=== PATIENT | female | born 1945 | race Caucasian/White ===

== ENCOUNTER 2017-11-01 06:19 | Emergency (ER) | payer MEDICARE, MEDICAID, SELFPAY ==
[2017-11-01 06:30] VITALS: BP 174/77; PULSE 71; RESP 20; TEMP 36.7; O2SAT 100; BMI 39.0
--- NOTE | 2017-11-01 06:45 | DI.RAD.S_ITS ---
PROCEDURE: XR CHEST 2V INDICATIONS: Recent pneumonia TECHNIQUE: 2 views of the chest were acquired. COMPARISON: [facility], , CHEST 2 VIEW, 09/03/2017, 15:04. FINDINGS: Surgical changes and devices: None. Lungs and pleura: No pleural effusions or pneumothorax. Lungs are clear except for minimal scar or atelectasis at the left base laterally.. Mediastinum: Mediastinal contours are normal. Heart size is normal. Bones and chest wall: No suspicious bony abnormalities. Soft tissues appear unremarkable. IMPRESSION: No acute cardiopulmonary abnormality Dictated by: Fausto Stark M.D. on 11/01/2017 at 8:02 Approved by: Fausto Stark M.D. on 11/01/2017 at 8:03
[2017-11-01 07:13] VITALS: BP 149/87; PULSE 65; RESP 14; O2SAT 96
[2017-11-01 07:21] LABS: Add Manual Diff / Slide Review NO; Eosinophils Percent Auto 3.4 % (2-4); Hematocrit 40.8 % (36-46); Hemoglobin 14.4 g/dL (12.0-16.0); Lymphocytes Percent Auto 23.6 % (25-40); Mean Corpuscular HGB Conc 35.2 % (30-36); Mean Corpuscular Hemoglobin 32.1 PG (26-34); Mean Corpuscular Volume 91.2 fL (80-100); Monocytes Percent Auto 11.1 % (3-14); Neutrophils Absolute Auto 3000 /uL (3000-5900); Neutrophils Percent Auto 60.9 % (50-75); Platelet Count 257 X10^3/uL (150-400); Red Blood Cell Count 4.47 X10^6/uL (4.0-5.2); Red Cell Distribution Width 14.1 % (11.6-14.8); White Blood Cell Count 4.9 X10^3/uL (4.5-11.0)
[2017-11-01 07:35] LABS: BUN Creatinine Ratio 23.3 (6-22); Calcium 9.1 mg/dL (8.4-10.2); Estimated Glomerular Filt Rate > 60.0 mL/min (>60); Glucose 103 mg/dL (80-110); Lactate (Lactic Acid) 0.8 mmol/L (0.7-2.1); Potassium 4.8 mmol/L (3.4-5.1); Sodium 140 mmol/L (137-145)
--- NOTE | 2017-11-01 07:37 | ED_ITS ---
HPI - URI/Sore Throat General Chief Complaint: Upper Respiratory Symptoms Stated Complaint: COUGHING, FEVER RECENT PNEUMONIA Time Seen by Provider: 11/01/17 07:05 Source: patient Mode of arrival: ambulatory Limitations: no limitations History of Present Illness HPI Narrative: 72-year-old female who I evaluated here in the emergency department earlier this month and diagnosed clinically with pneumonia. Was sent home with azithromycin. Patient states she completed this course and felt better. She states that over the past several days the cough and breathing symptoms have returned. No fevers. Does have an albuterol inhaler with an AeroChamber at home. Has had a nebulizer in the past but is not currently use that. Related Data Home Medications Medication Instructions Recorded Confirmed furosemide 40 mg PO QDAY #0 09/15/17 Previous Rx's Medication Instructions Recorded albuterol sulfate [Ventolin HFA] 2 puff INH Q4HP PRN #1 ea 09/03/17 amlodipine [Norvasc] 5 mg PO QDAY #10 tab 09/03/17 gabapentin [Neurontin] 400 mg PO Q8H #21 cap 09/03/17 lamotrigine 150 mg PO TID #21 tab 09/03/17 venlafaxine 150 mg PO BID #14 tab 09/03/17 gabapentin [Neurontin] 400 mg PO Q8H 30 Days #0 cap 09/15/17 lamotrigine 150 mg PO TID 30 Days #0 tab 09/15/17 venlafaxine 300 mg PO QDAY 30 Days #0 tab 09/15/17 albuterol sulfate 1 puff INHALATION Q4-6H PRN #6.7 10/14/17 gram amlodipine 5 mg PO DAILY #30 tab 10/14/17 azithromycin See Label Instructions .ROUTE 10/14/17 .COMPLEX #6 tab gabapentin 400 mg PO TID #90 cap 10/14/17 lamotrigine 150 mg PO TID #90 tab 10/14/17 venlafaxine 150 mg PO DAILY #30 cap 10/14/17 albuterol sulfate 1 puff INHALATION Q4-6H PRN #6.7 11/01/17 gram dexamethasone [Decadron] 4 mg PO DIRECTED #3 tab 11/01/17 venlafaxine 150 mg PO BID #30 cap 11/01/17 Allergies Allergy/AdvReac Type Severity Reaction Status Date / Time Penicillins [PENICILLINS] Allergy Unknown Unverified 09/21/17 13:10 Review of Systems Constitutional Denies chills, Denies fever(s), Denies lethargy and Denies weakness ENT Ears, Nose, Mouth, and Throat: Denies dizziness Cardiovascular Denies chest pain, Denies irregular heart rhythm, Denies lightheadedness, Denies palpitations, Reports dyspnea, Denies dyspnea on exertion and Denies orthopnea Respiratory Reports chest congestion, Reports cough, Denies hemoptysis, Reports dyspnea and Denies dyspnea on exertion Gastrointestinal Gastrointestinal: Denies nausea and Denies vomiting Genitourinary Denies dysuria Musculoskeletal Denies back pain, Denies muscle weakness, Denies numbness and Denies tingling Integumentary/Breasts Denies pruritus, Denies erythema, Denies rash and Denies wounds Neurologic Denies dizziness, Denies numbness, Denies tingling and Denies weakness Endocrine Denies palpitations Hematologic/Lymphatic Denies easy bruising PFSH Social History Smoking Status: Current every day smoker Exam Initial Vital Signs Initial Vital Signs: Vital Signs Temperature 98.1 F 11/01/17 06:30 Pulse Rate 71 11/01/17 06:30 Respiratory Rate 20 11/01/17 06:30 Blood Pressure 174/77 H 11/01/17 06:30 Pulse Oximetry 100 11/01/17 06:30 [facility] Head: normal to inspection, normocephalic and atraumatic Resp Effort & Inspection: normal respiratory effort, able to speak in complete sentences, cough, not labored, no respiratory distress and no stridor Auscultation: no rales, no rhonchi and wheezes Cardio Rate: regular rate Skin General: no rashes or lesions noted, No jaundice and No petechiae Neuro General: alert, awake and oriented x3 Speech: speech normal Extrem General: full ROM, no clubbing, cyanosis or edema, no pedal edema and no calf tenderness Course Orders Ordered: ED Orders 11/01/17 06:45 Chest [XR chest 2V] Stat 11/01/17 07:18 Basic Metabolic Panel Stat Complete Blood Count AUTO DIFF Stat Lactate (Lactic Acid) Stat Procalcitonin Stat Discontinued Medications Albuterol/Ipratropium (Duoneb) 3 ml INH NOW ONE Stop: 11/01/17 07:38 Last Admin: 11/01/17 07:44 Dose: 3 ml Albuterol/Ipratropium (Duoneb) 3 ml INH NOW ONE Stop: 11/01/17 07:38 Last Admin: 11/01/17 07:45 Dose: 3 ml Albuterol/Ipratropium (Duoneb) 3 ml INH NOW ONE Stop: 11/01/17 08:25 Last Admin: 11/01/17 08:38 Dose: 3 ml Dexamethasone (Decadron) 10 mg PO NOW ONE Stop: 11/01/17 08:26 Vital Signs - 8 hr 11/01/17 06:30 11/01/17 07:13 11/01/17 08:39 Temperature 98.1 F Pulse Rate 71 65 Respiratory Rate 20 14 18 Blood Pressure 174/77 H Blood Pressure [Left Arm] 149/87 H Pulse Oximetry 100 96 94 MDM - URI/Sore Throat Lab Data Result diagrams: 11/01/17 07:18 11/01/17 07:18 Lab Results 11/01/17 11/01/17 11/01/17 Range/Units 07:18 07:18 07:18 WBC 4.9 (4.5-11.0) X10^3/uL RBC 4.47 (4.0-5.2) X10^6/uL Hgb 14.4 (12.0-16.0) g/dL Hct 40.8 (36-46) % MCV 91.2 (80-100) fL MCH 32.1 (26-34) PG MCHC 35.2 (30-36) % RDW 14.1 (11.6-14.8) % Plt Count 257 (150-400) X10^3/uL Neut % (Auto) 60.9 (50-75) % Lymph % (Auto) 23.6 L (25-40) % [place] % (Auto) 11.1 (3-14) % Eos % (Auto) 3.4 (2-4) % Baso % (Auto) 1.0 (0-2) % Neut # (Auto) 3000 (9582-1075) /uL Sodium 140 (137-145) mmol/L Potassium 4.8 (3.4-5.1) mmol/L Chloride 103.0 (98-107) mmol/L Carbon Dioxide 27.0 (22-32) mmol/L BUN 14.0 (7-17) mg/dL Creatinine 0.60 (0.52-1.04) mg/dL Estimated GFR > 60.0 (>60) mL/min BUN/Creatinine Ratio 23.3 H (6-22) Glucose 103 (80-110) mg/dL Lactate (0.7-2.1) mmol/L Calcium 9.1 (8.4-10.2) mg/dL Procalcitonin < 0.05 (<0.5) ng/mL 11/01/17 Range/Units 07:18 WBC (4.5-11.0) X10^3/uL RBC (4.0-5.2) X10^6/uL Hgb (12.0-16.0) g/dL Hct (36-46) % MCV (80-100) fL MCH (26-34) PG MCHC (30-36) % RDW (11.6-14.8) % Plt Count (150-400) X10^3/uL Neut % (Auto) (50-75) % Lymph % (Auto) (25-40) % [place] % (Auto) (3-14) % Eos % (Auto) (2-4) % Baso % (Auto) (0-2) % Neut # (Auto) (3455-7777) /uL Sodium (137-145) mmol/L Potassium (3.4-5.1) mmol/L Chloride (98-107) mmol/L Carbon Dioxide (22-32) mmol/L BUN (7-17) mg/dL Creatinine (0.52-1.04) mg/dL Estimated GFR (>60) mL/min BUN/Creatinine Ratio (6-22) Glucose (80-110) mg/dL Lactate 0.8 (0.7-2.1) mmol/L Calcium (8.4-10.2) mg/dL Procalcitonin (<0.5) ng/mL Imaging Data Chest x-ray: Radiologist's impression: ROCEDURE: XR CHEST 2V INDICATIONS: Recent pneumonia TECHNIQUE: 2 views of the chest were acquired. COMPARISON: [facility], , CHEST 2 VIEW, 09/03/2017, 15:04. FINDINGS: Surgical changes and devices: None. Lungs and pleura: No pleural effusions or pneumothorax. Lungs are clear except for minimal scar or atelectasis at the left base laterally.. Mediastinum: Mediastinal contours are normal. Heart size is normal. Bones and chest wall: No suspicious bony abnormalities. Soft tissues appear unremarkable. IMPRESSION: No acute cardiopulmonary abnormality Dictated by: Fausto Stark M.D. on 11/01/2017 at 8:02 MDM Narrative Medical decision making narrative: Patient received 3 DuoNeb here in the emergency department with an improvement of the wheezing bilaterally. Did not resolve the symptoms however. Patient did state that she feels much better. Chest x-ray shows no signs of infection. I have low suspicion for an infectious process the cause of her symptoms in feel that is more likely a reactive issue. She does have a history of asthma but no diagnosis COPD history. She does smoke ?a few cigarettes ?a day. She states that she is using her albuterol inhaler with an AeroChamber several times a day. She was given steroids here in the emergency department. Will send home with another prescription for Decadron to taken 36 hr. Will refill her albuterol inhaler. She does have a follow-up appointment with her primary doctor at the beginning of next month. She was instructed on how to do peak flows at home and was informed that she should be recording these peak flows that she could take them to her primary doctor to discuss being on a daily inhaled corticosteroid. She was given return precautions. Is not hypoxic. Was not in respiratory distress. Does not need an acute admission to the hospital currently in my opinion. She expressed understanding and agreement with plan Discharge Plan Departure Patient Disposition: Home, Self-Care Clinical Impression: Exacerbation of reactive airway disease Instructions: Cigarette Addiction (Alternative Therapy), How to Quit Smoking, Reactive Airway Disease-Adult Activity Restrictions/Additional Instructions: Take all the medications likely discussed. Would recommend that you take your albuterol inhaler with the AeroChamber every 4 hr for the next 24 hr while you are awake. After that you can do it as needed. Take the steroids tomorrow late afternoon likely discussed. Do your peak flows at home like you were instructed by respiratory therapy and record these numbers. Take them with you to your primary care doctor's office. Keep your appointment with your primary doctor early next week. Return to the emergency department for any new or worsening symptoms Prescriptions: New venlafaxine 150 mg capsule,extended release 24hr 150 mg PO BID Qty: 30 RF: 0 dexamethasone [Decadron] 4 mg tablet 4 mg PO DIRECTED Qty: 3 RF: 0 albuterol sulfate 90 mcg/actuation HFA aerosol inhaler 1 puff INHALATION Q4-6H PRN (Reason: shortness of breath or wheezing) Qty: 6.7 RF: 0 No Action lamotrigine 150 MG tablet 150 mg PO TID Qty: 21 RF: 0 gabapentin [Neurontin] 400 MG capsule 400 mg PO Q8H Qty: 21 RF: 0 amlodipine [Norvasc] 5 MG tablet 5 mg PO QDAY Qty: 10 RF: 0 albuterol sulfate [Ventolin HFA] 90 MCG/PUFF HFA aerosol inhaler 2 puff INH Q4HP PRNQty: 1 RF: 0 venlafaxine 150 MG tablet extended release 24hr 150 mg PO BID Qty: 14 RF: 0 furosemide 40 MG tablet 40 mg PO QDAY Qty: 0 RF: 0 lamotrigine 150 MG tablet 150 mg PO TID 30 Days Qty: 0 RF: 0 gabapentin [Neurontin] 400 MG capsule 400 mg PO Q8H 30 Days Qty: 0 RF: 0 venlafaxine 150 MG tablet extended release 24hr 300 mg PO QDAY 30 Days Qty: 0 RF: 0 lamotrigine 150 mg tablet 150 mg PO TID Qty: 90 RF: 0 azithromycin 250 mg tablet See Label Instructions .ROUTE .COMPLEX Qty: 6 RF: 0 gabapentin 400 mg capsule 400 mg PO TID Qty: 90 RF: 0 venlafaxine 150 mg capsule,extended release 24hr 150 mg PO DAILY Qty: 30 RF: 0 amlodipine 5 mg tablet 5 mg PO DAILY Qty: 30 RF: 0 albuterol sulfate 90 mcg/actuation HFA aerosol inhaler 1 puff INHALATION Q4-6H PRN (Reason: shortness of breath) Qty: 6.7 RF: 0
[2017-11-01 07:39] LABS: HEMOLYSIS 235 (0-50)
[2017-11-01] MEDS: ALBUTEROL/IPRATROPIUM 3 ML AMPUL INH ×3 (07:44→08:38)
[2017-11-01 08:39] VITALS: RESP 18; O2SAT 94
[2017-11-01 08:45] LABS: Procalcitonin < 0.05 ng/mL (<0.5)
[2017-11-01 09:35] VITALS: BP 138/54; PULSE 74; RESP 20; O2SAT 97
[2017-11-01] MEDS: DEXAMETHASONE 10 MG/ML VIAL PO (09:37)
[2017-11-01 09:46] VITALS: BP 138/54; PULSE 88; RESP 20; O2SAT 95
[2017-11-01 09:50] VITALS: BP 142/82; PULSE 64; O2SAT 95
== END 2017-11-01 09:53 | disposition home or self-care (01) ==
PROVIDERS: Emergency Medicine; Emergency Provider Emergency Medicine
DX: J45.901 Unspecified asthma with (acute) exacerbation (principal)
CPT/HCPCS: 36591; 71046; 80048; 83605; 84145; 85025; 94150; 94640; 99283; 99284; J1100

== ENCOUNTER 2017-11-21 22:53 | Emergency (ER) | payer MEDICARE, MEDICAID, SELFPAY ==
[2017-11-21 23:05] VITALS: BP 176/80; PULSE 78; RESP 18; TEMP 36.4; O2SAT 97; BMI 35.2
--- NOTE | 2017-11-22 00:22 | ED_ITS ---
HPI - Psych General Chief Complaint: Psychiatric Symptoms Stated Complaint: OUT OF MENTAL HEALTH MEDICATIONS CONCERN Time Seen by Provider: 11/21/17 23:18 Source: patient Mode of arrival: ambulatory Limitations: no limitations History of Present Illness HPI Narrative: Patient is a 72-year-old female who I have seen in this emergency department several times in the past for both medication refills of her psychiatric medicines and also for COPD exacerbations. I evaluated the patient here in the emergency department on November 01. At that point she stated that she had a follow up with her primary doctor on November 14 to have her regular evaluation and have her psychiatric medicines refilled. Patient states that she was unable to make this appointment. She states that it was an issue with transportation seeing as how she lives in [place] at her primary doctor is in [place]. She states that because she missed this appointment she was not able to get a refill of her medications. She states that she is felt very anxious since then. States she has felt depressed since then. She has not had her psychiatric medicines in several days now. She states that because of this she is feeling thoughts of suicide. She states that she always has thoughts of suicide. She states that these get worse when she is off of her medicines and when she is feeling anxious. 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 Patient has not contacted her primary doctor since her missed appointment approximately 1 week ago Related Data Home Medications Medication Instructions Recorded Confirmed furosemide 40 mg PO QDAY #0 09/15/17 Previous Rx's Medication Instructions Recorded albuterol sulfate [Ventolin HFA] 2 puff INH Q4HP PRN #1 ea 09/03/17 amlodipine [Norvasc] 5 mg PO QDAY #10 tab 09/03/17 gabapentin [Neurontin] 400 mg PO Q8H #21 cap 09/03/17 lamotrigine 150 mg PO TID #21 tab 09/03/17 venlafaxine 150 mg PO BID #14 tab 09/03/17 gabapentin [Neurontin] 400 mg PO Q8H 30 Days #0 cap 09/15/17 lamotrigine 150 mg PO TID 30 Days #0 tab 09/15/17 venlafaxine 300 mg PO QDAY 30 Days #0 tab 09/15/17 albuterol sulfate 1 puff INHALATION Q4-6H PRN #6.7 05/04/18 gram amlodipine 5 mg PO DAILY #30 tab 10/14/17 azithromycin See Label Instructions .ROUTE 10/14/17 .COMPLEX #6 tab gabapentin 400 mg PO TID #90 cap 10/14/17 lamotrigine 150 mg PO TID #90 tab 10/14/17 venlafaxine 150 mg PO DAILY #30 cap 10/14/17 albuterol sulfate 1 puff INHALATION Q4-6H PRN #6.7 11/01/17 gram dexamethasone [Decadron] 4 mg PO DIRECTED #3 tab 11/01/17 venlafaxine 150 mg PO BID #30 cap 11/01/17 amlodipine 5 mg PO DAILY #30 tab 11/22/17 gabapentin 400 mg PO TID #90 cap 11/22/17 lamotrigine 150 mg PO TID #90 tab 11/22/17 venlafaxine 300 mg PO DAILY #60 cap 11/22/17 Allergies Allergy/AdvReac Type Severity Reaction Status Date / Time Penicillins [PENICILLINS] Allergy Unknown Verified 11/21/17 23:08 Review of Systems Constitutional Denies chills, Denies fever(s), Denies lethargy and Denies weakness Cardiovascular Denies chest pain, Denies irregular heart rhythm, Denies lightheadedness, Denies palpitations and Denies orthopnea Respiratory Comments: States that she has at her baseline with regard to her shortness of breath Gastrointestinal Gastrointestinal: Denies constipation, Denies diarrhea, Denies nausea and Denies vomiting Musculoskeletal Denies back pain, Denies muscle weakness, Denies numbness and Denies tingling Neurologic Denies numbness, Denies tingling and Denies weakness Psychiatric Reports anxiety, Reports depression, Denies homicidal ideation and Reports suicidal ideation Endocrine Denies palpitations Hematologic/Lymphatic Denies easy bruising [facility] Social History Smoking Status: Current every day smoker Exam Initial Vital Signs Initial Vital Signs: Vital Signs Temperature 97.5 F L 11/21/17 23:05 Pulse Rate 78 11/21/17 23:05 Respiratory Rate 18 11/21/17 23:05 Blood Pressure 176/80 H 11/21/17 23:05 Pulse Oximetry 97 11/21/17 23:05 Const General: cooperative and well developed Nutritional Appearance: well nourished Orientation: alert, awake, oriented x3 and not confused Resp Effort & Inspection: normal respiratory effort and able to speak in complete sentences Cardio Rate: regular rate Rhythm: regular rhythm Heart Sounds: no click, no gallops, no murmurs and no rubs Pulses: normal peripheral pulses Skin General: no rashes or lesions noted, No jaundice and No petechiae Psych Appearance: grossly normal and well kempt Mental Status: mental status grossly normal and other (Depressed) Speech and Movement: speech and movement normal Mood: other (Depressed) Affect: other (Depressed) Attitude: cooperative Course Vital Signs - 8 hr 11/21/17 23:05 11/22/17 00:38 Temperature 97.5 F L 98.7 F Pulse Rate 78 66 Respiratory Rate 18 16 Blood Pressure 176/80 H 154/83 H Pulse Oximetry 97 98 MDM - Psych MDM Narrative Medical decision making narrative: I have evaluated this patient in the past on several occasions and have refilled her psychiatric medicine on several occasions. Prior to this appointment I have informed her many times that these medicines need to be prescribed by her primary doctor and they are chronic medicines that she does need to see a primary doctor on a regular basis to manage her chronic depression. At the time she expressed understanding. She did miss her appointment that she had on the 4th of this month. She states that since then she has had these suicidal thoughts and also the depression. She states that she felt safe at home. She states that she feels like if she was back on her medicines that these thoughts would go away. She states that she would never act on these thoughts. She states she constantly has thoughts like this. She is at baseline with regard to her respiratory status. Patient is having a hard time with making appointments with her primary doctor. She states that this is because she has a sick child. She is living in a hotel here in [facility] and has a difficult time making it to her primary doctor down in [place]. I will refill her medicines again this evening. She was given a 30 day supply this medicine. Informed her that she needed to contact her primary doctor and explained the situation to work something out about how to get down to see them. She stated that she felt like she did not need admitted to the hospital or talked anyone with regard to her depression. She was informed that she could return the emergency department at any point for worsening thoughts. She expressed understanding and agreement with plan Discharge Plan Departure Patient Disposition: Home, Self-Care Clinical Impression: Depression, Medication refill Discharge Date/Time: 11/22/17 00:40 Interventions: ED Discharge Assessment Last Done: 11/22/17 00:38 Instructions: Depression (Mild to Moderate) (Alternative Therapy), Depression Activity Restrictions/Additional Instructions: I recommend that you contact your primary doctor again down in [place] to discuss follow-up in to explain your situation. You do need to follow up with her primary doctor because the emergency department is not appropriate to obtain long-term medication refills. You may return to the emergency department at any point for new or worsening symptoms Prescriptions: New lamotrigine 150 mg tablet 150 mg PO TID Qty: 90 RF: 0 gabapentin 400 mg capsule 400 mg PO TID Qty: 90 RF: 0 venlafaxine 150 mg capsule,extended release 24hr 300 mg PO DAILY Qty: 60 RF: 0 amlodipine 5 mg tablet 5 mg PO DAILY Qty: 30 RF: 0 No Action lamotrigine 150 MG tablet 150 mg PO TID Qty: 21 RF: 0 gabapentin [Neurontin] 400 MG capsule 400 mg PO Q8H Qty: 21 RF: 0 amlodipine [Norvasc] 5 MG tablet 5 mg PO QDAY Qty: 10 RF: 0 albuterol sulfate [Ventolin HFA] 90 MCG/PUFF HFA aerosol inhaler 2 puff INH Q4HP PRNQty: 1 RF: 0 venlafaxine 150 MG tablet extended release 24hr 150 mg PO BID Qty: 14 RF: 0 furosemide 40 MG tablet 40 mg PO QDAY Qty: 0 RF: 0 lamotrigine 150 MG tablet 150 mg PO TID 30 Days Qty: 0 RF: 0 gabapentin [Neurontin] 400 MG capsule 400 mg PO Q8H 30 Days Qty: 0 RF: 0 venlafaxine 150 MG tablet extended release 24hr 300 mg PO QDAY 30 Days Qty: 0 RF: 0 venlafaxine 150 mg capsule,extended release 24hr 150 mg PO BID Qty: 30 RF: 0 dexamethasone [Decadron] 4 mg tablet 4 mg PO DIRECTED Qty: 3 RF: 0 albuterol sulfate 90 mcg/actuation HFA aerosol inhaler 1 puff INHALATION Q4-6H PRN (Reason: shortness of breath or wheezing) Qty: 6.7 RF: 0 lamotrigine 150 mg tablet 150 mg PO TID Qty: 90 RF: 0 azithromycin 250 mg tablet See Label Instructions .ROUTE .COMPLEX Qty: 6 RF: 0 gabapentin 400 mg capsule 400 mg PO TID Qty: 90 RF: 0 venlafaxine 150 mg capsule,extended release 24hr 150 mg PO DAILY Qty: 30 RF: 0 amlodipine 5 mg tablet 5 mg PO DAILY Qty: 30 RF: 0 albuterol sulfate 90 mcg/actuation HFA aerosol inhaler 1 puff INHALATION Q4-6H PRN (Reason: shortness of breath) Qty: 6.7 RF: 0
[2017-11-22 00:38] VITALS: BP 154/83; PULSE 66; RESP 16; TEMP 37.1; O2SAT 98
== END 2017-11-22 00:40 | disposition home or self-care (01) ==
PROVIDERS: Emergency Provider Emergency Medicine
DX: F32.9 Major depressive disorder, single episode, unspecified (principal)
CPT/HCPCS: 99282

== ENCOUNTER 2017-12-27 23:07 | Emergency (ER) | payer MEDICARE, MEDICAID, SELFPAY ==
[2017-12-27 23:29] VITALS: BP 159/87; PULSE 78; RESP 15; TEMP 36.6
[2017-12-28 02:25] LABS: Appearance Urine UA CLEAR; Bilirubin Urine UA NEGATIVE (NEGATIVE); Color Urine UA YELLOW; Glucose Urine UA NEGATIVE (Normal); Ketones Urine UA NEGATIVE (NEGATIVE); Leukocyte Esterase Urine UA 2+ (NEGATIVE); Nitrite Urine UA Negative (Negative); Occult Blood Urine UA TRACE-INTACT (Negative); Protein Urine UA NEGATIVE (Negative); Urobilinogen Urine UA 0.2 E.U./dL (0.2)
[2017-12-28 02:31] LABS: Bacteria Urine Few (2-10); Culture Indicated Urine Specimen Cultured; RBC Urine 0-1/HPF (0-5/HPF); Squamous Epithelial Cell Urine 0-1 /HPF; WBC Urine 1-5/HPF (0-5/HPF)
--- NOTE | 2017-12-28 02:32 | ED_ITS ---
HPI - Female Genitourinary General Chief complaint: Urogenital-Female Stated complaint: feels confused, cough Time Seen by Provider: 12/28/17 00:00 Source: patient Mode of arrival: ambulatory History of Present Illness HPI Narrative: Pleasant 72-year-old female presents with a chief complaint of urinary frequency and urgency as well as some nausea and right low back pain. She states she feels like she has in the past when she has had a urinary tract infection. She denies chest pain or shortness of breath. She denies any abdominal pain. MD Complaint: dysuria and UTI Onset (ago): day(s) Severity: moderate Quality: Aching and Burning Duration: constant Relieving factors: none Exacerbating factors: none Urinary symptoms: Difficulty Urinating, Dysuria and Urgency Related Data Home Medications Medication Instructions Recorded Confirmed furosemide 40 mg PO QDAY #0 09/15/17 Previous Rx's Medication Instructions Recorded albuterol sulfate [Ventolin HFA] 2 puff INH Q4HP PRN #1 ea 09/03/17 amlodipine [Norvasc] 5 mg PO QDAY #10 tab 09/03/17 gabapentin [Neurontin] 400 mg PO Q8H #21 cap 09/03/17 lamotrigine 150 mg PO TID #21 tab 09/03/17 venlafaxine 150 mg PO BID #14 tab 09/03/17 gabapentin [Neurontin] 400 mg PO Q8H 30 Days #0 cap 09/15/17 lamotrigine 150 mg PO TID 30 Days #0 tab 09/15/17 venlafaxine 300 mg PO QDAY 30 Days #0 tab 09/15/17 albuterol sulfate 1 puff INHALATION Q4-6H PRN #6.7 10/14/17 gram amlodipine 5 mg PO DAILY #30 tab 10/14/17 azithromycin See Label Instructions .ROUTE 10/14/17 .COMPLEX #6 tab gabapentin 400 mg PO TID #90 cap 10/14/17 lamotrigine 150 mg PO TID #90 tab 10/14/17 venlafaxine 150 mg PO DAILY #30 cap 10/14/17 albuterol sulfate 1 puff INHALATION Q4-6H PRN #6.7 11/01/17 gram dexamethasone [Decadron] 4 mg PO DIRECTED #3 tab 11/01/17 venlafaxine 150 mg PO BID #30 cap 11/01/17 amlodipine 5 mg PO DAILY #30 tab 11/22/17 gabapentin 400 mg PO TID #90 cap 11/22/17 lamotrigine 150 mg PO TID #90 tab 11/22/17 venlafaxine 300 mg PO DAILY #60 cap 11/22/17 gabapentin [Neurontin] 400 mg PO TID 5 Days #15 cap 12/28/17 lamotrigine [Lamictal] 150 mg PO TID 5 Days #15 tab 12/28/17 sulfamethoxazole-trimethoprim 1 tab PO BID 10 Days #20 tab 12/28/17 [Bactrim DS] venlafaxine [Effexor XR] 150 mg PO DAILY 5 Days cap 12/28/17 Allergies Allergy/AdvReac Type Severity Reaction Status Date / Time Penicillins [PENICILLINS] Allergy Unknown Verified 11/21/17 23:08 Review of Systems Review of Systems All systems reviewed & are unremarkable except as noted in HPI and below Constitutional Denies chills, Denies fever(s), Denies lethargy and Denies weakness Eyes Denies change in vision, Denies eye discharge, Denies irritation and Denies loss of vision ENT Ears, Nose, Mouth, and Throat: Denies change in voice, Denies neck pain and Denies sore throat Cardiovascular Denies chest pain, Denies irregular heart rhythm, Denies lightheadedness, Denies palpitations, Denies dyspnea, Denies dyspnea on exertion and Denies orthopnea Respiratory Denies cough, Denies dyspnea, Denies dyspnea on exertion and Denies wheezing Gastrointestinal Gastrointestinal: Denies abdominal pain, Denies change in bowel habits, Denies diarrhea, Denies nausea and Denies vomiting Genitourinary Denies hematuria, Denies flank pain, Denies urinary incontinence and Denies urinary urgency Musculoskeletal Denies neck pain Integumentary/Breasts Denies pruritus, Denies erythema, Denies rash and Denies wounds Neurologic Denies confusion, Denies loss of vision and Denies weakness Psychiatric Denies anxiety, Denies confusion, Denies depression, Denies homicidal ideation and Denies suicidal ideation Endocrine Denies palpitations Hematologic/Lymphatic Denies easy bruising Allergic/Immunologic Denies wheezing [facility] Social History Smoking Status: Current some day smoker Exam Initial Vital Signs Initial Vital Signs: Vital Signs Temperature 97.9 F 12/27/17 23:29 Pulse Rate 78 12/27/17 23:29 Respiratory Rate 15 12/27/17 23:29 Blood Pressure 159/87 H 12/27/17 23:29 Const General: cooperative and well developed Nutritional Appearance: well nourished Orientation: alert, awake, oriented x3 and not confused [facility] Head: normocephalic and atraumatic Ears: external ears normal and TM's normal bilaterally Nose: external nose normal and No nasal discharge Face and sinus: sinuses nontender, face symmetric, no sinus tenderness and No dry mucous membranes Mouth: oral mucosae normal and moist mucous membranes Teeth and gingiva: dentition normal Throat: tonsils normal and uvula midline Eyes General: appearance normal, both eyes and all related structures Eyelids: eyelids normal Conjunctivae: conjunctivae normal Sclera: sclerae normal Pupils: PERRL EOM: EOM intact bilaterally Neck Neck: normal visual inspection, trachea midline, No lymphadenopathy, No midline deformity and No JVD Lymphatic: No lymphedema Chest Chest: normal inspection of the chest Resp Effort & Inspection: normal respiratory effort, able to speak in complete sentences, no respiratory distress and no use of accessory muscles Auscultation: clear to auscultation bilaterally, no rales, no rhonchi and no wheezes Cardio Rate: regular rate Rhythm: regular rhythm Heart Sounds: no click, no gallops, no murmurs and no rubs Pulses: normal peripheral pulses GI Inspection: non-distended Palpation: soft, no hepatosplenomegaly, No guarding, No pulsatile mass and No tender Auscultation: normal bowel sounds Back/Spine/Pelvis Back: CVA tenderness right Cervical Spine: cervical ROM normal and No pain with cervical ROM Thoracic/Lumbar Spine: thoracic and lumbar spine normal to inspection Skin General: no rashes or lesions noted, No jaundice and No petechiae Neuro General: alert, oriented x3, gait normal and no focal motor deficits Speech: speech normal Extrem General: full ROM, no clubbing, cyanosis or edema, no pedal edema and no calf tenderness Psych Appearance: well kempt Mental Status: mental status grossly normal Attitude: cooperative Thought Content: normal and suicidality Judgment: judgment good Course Orders Ordered: ED Orders 12/28/17 00:00 Urinalysis and Microscopic Stat Urine Culture Stat Discontinued Medications Trimethoprim/Sulfamethoxazole (Bactrim Ds) 1 tab PO NOW ONE Stop: 12/28/17 02:33 Last Admin: 12/28/17 02:44 Dose: 1 tab Vital Signs - 8 hr 12/27/17 23:29 12/28/17 02:50 Temperature 97.9 F 97.8 F Pulse Rate 78 74 Respiratory Rate 15 16 Blood Pressure 159/87 H 150/80 H Pulse Oximetry 98 MDM - Female Genitourinary Lab Data Lab Results 12/28/17 Range/Units 00:00 Urine Color Yellow Urine Appearance Clear Urine pH 5.0 (4.5-8.0) Ur Specific [place] 1.010 (1.000-1.035) Urine Protein Negative (Negative) Urine Glucose (UA) Negative (Normal) g/dL Urine Ketones Negative (NEGATIVE) Urine Occult Blood Trace-intact (Negative) Urine Nitrate Negative (Negative) Urine Bilirubin Negative (NEGATIVE) Urine Urobilinogen 0.2 (0.2) E.U./dL Ur Leukocyte Esterase 2+ H (NEGATIVE) Urine RBC 0-1/hpf (0-5/HPF) Urine WBC 1-5/hpf (0-5/HPF) Ur Squamous Epith Cells 0-1 /hpf Urine Bacteria Few (2-10) H (None) Ur Culture Indicated? Specimen cultured Micro UA Comment Not Reportable Discharge Plan Departure Patient Disposition: Home, Self-Care Clinical Impression: UTI (urinary tract infection), Medication refill Discharge Date/Time: 12/28/17 02:50 Interventions: ED Discharge Assessment Last Done: 12/28/17 02:50 Instructions: DI for Urinary Tract Infection (UTI) Activity Restrictions/Additional Instructions: *You have been diagnosed with pyelonephritis, medication refill *What to do: *Take medications as directed *Follow up with your primary care provider in 2-3 days, call for an appointment. Let them know you were seen in the Emergency Department and that we ask that you be seen in follow up *Return to ER if you should have any new, worsening or concerning symptoms , such as [fever, chills, nausea, vomiting or other ] Prescriptions: New lamotrigine [Lamictal] 150 mg tablet 150 mg PO TID 5 Days Qty: 15 RF: 0 gabapentin [Neurontin] 400 mg capsule 400 mg PO TID 5 Days Qty: 15 RF: 0 venlafaxine [Effexor XR] 150 mg capsule,extended release 24hr 150 mg PO DAILY 5 Days RF: 0 sulfamethoxazole-trimethoprim [Bactrim DS] 800-160 mg tablet 1 tab PO BID 10 Days Qty: 20 RF: 0 No Action lamotrigine 150 MG tablet 150 mg PO TID Qty: 21 RF: 0 gabapentin [Neurontin] 400 MG capsule 400 mg PO Q8H Qty: 21 RF: 0 amlodipine [Norvasc] 5 MG tablet 5 mg PO QDAY Qty: 10 RF: 0 albuterol sulfate [Ventolin HFA] 90 MCG/PUFF HFA aerosol inhaler 2 puff INH Q4HP PRNQty: 1 RF: 0 venlafaxine 150 MG tablet extended release 24hr 150 mg PO BID Qty: 14 RF: 0 furosemide 40 MG tablet 40 mg PO QDAY Qty: 0 RF: 0 lamotrigine 150 MG tablet 150 mg PO TID 30 Days Qty: 0 RF: 0 gabapentin [Neurontin] 400 MG capsule 400 mg PO Q8H 30 Days Qty: 0 RF: 0 venlafaxine 150 MG tablet extended release 24hr 300 mg PO QDAY 30 Days Qty: 0 RF: 0 venlafaxine 150 mg capsule,extended release 24hr 150 mg PO BID Qty: 30 RF: 0 dexamethasone [Decadron] 4 mg tablet 4 mg PO DIRECTED Qty: 3 RF: 0 albuterol sulfate 90 mcg/actuation HFA aerosol inhaler 1 puff INHALATION Q4-6H PRN (Reason: shortness of breath or wheezing) Qty: 6.7 RF: 0 lamotrigine 150 mg tablet 150 mg PO TID Qty: 90 RF: 0 azithromycin 250 mg tablet See Label Instructions .ROUTE .COMPLEX Qty: 6 RF: 0 gabapentin 400 mg capsule 400 mg PO TID Qty: 90 RF: 0 venlafaxine 150 mg capsule,extended release 24hr 150 mg PO DAILY Qty: 30 RF: 0 amlodipine 5 mg tablet 5 mg PO DAILY Qty: 30 RF: 0 albuterol sulfate 90 mcg/actuation HFA aerosol inhaler 1 puff INHALATION Q4-6H PRN (Reason: shortness of breath) Qty: 6.7 RF: 0 lamotrigine 150 mg tablet 150 mg PO TID Qty: 90 RF: 0 gabapentin 400 mg capsule 400 mg PO TID Qty: 90 RF: 0 venlafaxine 150 mg capsule,extended release 24hr 300 mg PO DAILY Qty: 60 RF: 0 amlodipine 5 mg tablet 5 mg PO DAILY Qty: 30 RF: 0
[2017-12-28] MEDS: SULFA/TRIMETH 800/160 (DS) TABLET 1 TAB PO (02:44)
[2017-12-28 02:50] VITALS: BP 150/80; PULSE 74; RESP 16; TEMP 36.6; O2SAT 98
--- NOTE | 2017-12-28 02:51 | PC.NURSE ---
Pt gave alternate phone number for if urine culture needs further follow-up. Phone number is [phone].
== END 2017-12-28 02:50 | disposition home or self-care (01) ==
PROVIDERS: Emergency Provider Emergency Medicine; PCP Family Medicine
DX: N39.0 Urinary tract infection, site not specified (principal)
CPT/HCPCS: 81001; 87086; 99282; 99283

== ENCOUNTER 2018-01-11 03:24 | Emergency (ER) | payer MEDICARE, MEDICAID, SELFPAY ==
[2018-01-11 03:34] VITALS: BP 154/84; PULSE 84; RESP 18; TEMP 36.4; O2SAT 96; BMI 35.2
--- NOTE | 2018-01-11 03:54 | ED.FEMALEGU ---
HPI - Female Genitourinary General Chief complaint: Urogenital-Female Stated complaint: UTI Time Seen by Provider: 01/11/18 03:48 Source: patient Mode of arrival: ambulatory Limitations: no limitations History of Present Illness HPI Narrative: The patient complains of right flank and lower abdominal discomfort. She has urinary urgency and he dysuria. She has prior visits here in the last month, the most recent urine culture Appears to have been contaminated with multiple organisms. she has subjective fever and chills, none now. She denies nausea or vomiting. Symptoms are recently worse. Additionally she has a history of chronic sinusitis, she complains of ongoing sinus discomfort. She has no associated ear pressure or sore throat. She describes a nonproductive cough. Related Data Home Medications Medication Instructions Recorded Confirmed furosemide 40 mg PO QDAY #0 09/15/17 Previous Rx's Medication Instructions Recorded albuterol sulfate [Ventolin HFA] 2 puff INH Q4HP PRN #1 ea 09/03/17 amlodipine [Norvasc] 5 mg PO QDAY #10 tab 09/03/17 gabapentin [Neurontin] 400 mg PO Q8H #21 cap 09/03/17 lamotrigine 150 mg PO TID #21 tab 09/03/17 venlafaxine 150 mg PO BID #14 tab 09/03/17 gabapentin [Neurontin] 400 mg PO Q8H 30 Days #0 cap 09/15/17 lamotrigine 150 mg PO TID 30 Days #0 tab 09/15/17 venlafaxine 300 mg PO QDAY 30 Days #0 tab 09/15/17 albuterol sulfate 1 puff INHALATION Q4-6H PRN #6.7 10/14/17 gram amlodipine 5 mg PO DAILY #30 tab 10/14/17 azithromycin See Label Instructions .ROUTE 10/14/17 .COMPLEX #6 tab gabapentin 400 mg PO TID #90 cap 10/14/17 lamotrigine 150 mg PO TID #90 tab 10/14/17 venlafaxine 150 mg PO DAILY #30 cap 10/14/17 albuterol sulfate 1 puff INHALATION Q4-6H PRN #6.7 11/01/17 gram dexamethasone [Decadron] 4 mg PO DIRECTED #3 tab 11/01/17 venlafaxine 150 mg PO BID #30 cap 11/01/17 amlodipine 5 mg PO DAILY #30 tab 11/22/17 gabapentin 400 mg PO TID #90 cap 11/22/17 lamotrigine 150 mg PO TID #90 tab 11/22/17 venlafaxine 300 mg PO DAILY #60 cap 11/22/17 cefuroxime axetil 500 mg PO BID 10 Days #20 tab 01/11/18 gabapentin 400 mg PO TID #90 cap 01/11/18 lamotrigine [Lamictal] 150 mg PO TID #90 tab 01/11/18 venlafaxine 150 mg PO BEDTIME #30 cap 01/11/18 Allergies Allergy/AdvReac Type Severity Reaction Status Date / Time Penicillins [PENICILLINS] Allergy Unknown Verified 11/21/17 23:08 sulfamethoxazole AdvReac Rash Verified 01/11/18 03:37 [From Bactrim] trimethoprim [From Bactrim] AdvReac Rash Verified 01/11/18 03:37 Review of Systems Review of Systems All systems reviewed & are unremarkable except as noted in HPI and below Constitutional Denies chills, Reports fever(s), Denies lethargy and Denies weakness ENT Ears, Nose, Mouth, and Throat: Denies change in voice, Denies dizziness, Reports facial pain, Denies neck pain and Denies sore throat Cardiovascular Denies chest pain, Denies irregular heart rhythm, Denies lightheadedness, Denies palpitations and Denies dyspnea Respiratory Reports cough, Denies dyspnea and Denies wheezing Gastrointestinal Gastrointestinal: Reports as per HPI, Reports abdominal pain, Denies change in bowel habits, Denies change in stool character, Denies constipation and Denies vomiting Genitourinary Denies hematuria, Reports dysuria, Reports flank pain and Reports urinary urgency Musculoskeletal Denies back pain and Denies neck pain Integumentary/Breasts Denies erythema, Denies rash and Denies wounds Neurologic Denies confusion, Denies dizziness and Denies weakness Psychiatric Denies confusion Endocrine Denies palpitations Allergic/Immunologic Denies wheezing [facility] Social History Smoking Status: Current some day smoker Exam Initial Vital Signs Initial Vital Signs: Vital Signs Temperature 97.6 F 01/11/18 03:34 Pulse Rate 84 01/11/18 03:34 Respiratory Rate 18 01/11/18 03:34 Blood Pressure 154/84 H 01/11/18 03:34 Pulse Oximetry 96 01/11/18 03:34 Const General: cooperative and well developed Nutritional Appearance: well nourished Orientation: alert, awake, oriented x3 and not confused [facility] Head: normocephalic and atraumatic Ears: external ears normal and TM's normal bilaterally Nose: No nasal discharge Face and sinus: face symmetric and sinus tenderness maxillary Mouth: oral mucosae normal and moist mucous membranes Teeth and gingiva: dentition normal Throat: tonsils normal and uvula midline Eyes Conjunctivae: conjunctivae normal Neck Lymphatic: No lymphadenopathy Chest Chest: normal inspection of the chest Resp Effort & Inspection: normal respiratory effort and able to speak in complete sentences Auscultation: clear to auscultation bilaterally, no rales, no rhonchi and no wheezes Cardio Rate: regular rate Rhythm: regular rhythm Heart Sounds: S1 normal, S2 normal, no click, no gallops, no murmurs and no rubs Pulses: normal peripheral pulses GI Inspection: non-distended Palpation: soft, no hepatosplenomegaly, No guarding and tender (right flank) Auscultation: normal bowel sounds Back/Spine/Pelvis Back: No CVA tenderness Skin General: no rashes or lesions noted, No jaundice and No petechiae Neuro General: alert, oriented x3, gait normal and no focal motor deficits Speech: speech normal Extrem General: full ROM, no clubbing, cyanosis or edema, no pedal edema and no calf tenderness Course Additional Information: I am treating the patient for UTI and possibly sinus infection. She requested refills for her mental health drugs, her doctor is in [place], [place]. She does not currently have an adequate means to be transported to his office, she is trying to work that out with local bus services. Orders Ordered: ED Orders 01/11/18 03:50 Urinalysis and Microscopic Stat Urine Culture Stat Discontinued Medications Cefuroxime Axetil (Ceftin) 500 mg PO NOW ONE Stop: 01/11/18 04:28 Phenazopyridine HCl (Pyridium 100mg Prepack) 1 bottle MISC SEEINSTR ONE Stop: 01/11/18 04:28 Vital Signs - 8 hr 01/11/18 03:34 Temperature 97.6 F Pulse Rate 84 Respiratory Rate 18 Blood Pressure 154/84 H Pulse Oximetry 96 MDM - Female Genitourinary Lab Data Lab Results 01/11/18 Range/Units 03:50 Urine Color Yellow Urine Appearance Slightly cloudy Urine pH 5.0 (4.5-8.0) Ur Specific [place] 1.020 (1.000-1.035) Urine Protein Trace H (Negative) Urine Glucose (UA) Negative (Normal) g/dL Urine Ketones Trace H (NEGATIVE) Urine Occult Blood Negative (Negative) Urine Nitrate Negative (Negative) Urine Bilirubin Negative (NEGATIVE) Urine Urobilinogen 0.2 (0.2) E.U./dL Ur Leukocyte Esterase 1+ H (NEGATIVE) Urine RBC None seen (0-5/HPF) Urine WBC 10-30/hpf H (0-5/HPF) Ur Squamous Epith Cells 1-5 /hpf Urine Bacteria Many (>30) H (None) Hyaline Casts 0-1/lpf (None) Ur Culture Indicated? Specimen cultured Micro UA Comment Not Reportable MDM Narrative Medical decision making narrative: The patient was started on Ceftin prior to discharge. Discharge Plan Departure Patient Disposition: Home, Self-Care Clinical Impression: UTI (urinary tract infection), Sinusitis Instructions: DI for Urinary Tract Infection (UTI) Prescriptions: New cefuroxime axetil 500 mg tablet 500 mg PO BID 10 Days Qty: 20 RF: 0 gabapentin 400 mg capsule 400 mg PO TID Qty: 90 RF: 0 lamotrigine [Lamictal] 150 mg tablet 150 mg PO TID Qty: 90 RF: 0 venlafaxine 150 mg capsule,extended release 24hr 150 mg PO BEDTIME Qty: 30 RF: 0 No Action lamotrigine 150 MG tablet 150 mg PO TID Qty: 21 RF: 0 gabapentin [Neurontin] 400 MG capsule 400 mg PO Q8H Qty: 21 RF: 0 amlodipine [Norvasc] 5 MG tablet 5 mg PO QDAY Qty: 10 RF: 0 albuterol sulfate [Ventolin HFA] 90 MCG/PUFF HFA aerosol inhaler 2 puff INH Q4HP PRNQty: 1 RF: 0 venlafaxine 150 MG tablet extended release 24hr 150 mg PO BID Qty: 14 RF: 0 furosemide 40 MG tablet 40 mg PO QDAY Qty: 0 RF: 0 lamotrigine 150 MG tablet 150 mg PO TID 30 Days Qty: 0 RF: 0 gabapentin [Neurontin] 400 MG capsule 400 mg PO Q8H 30 Days Qty: 0 RF: 0 venlafaxine 150 MG tablet extended release 24hr 300 mg PO QDAY 30 Days Qty: 0 RF: 0 venlafaxine 150 mg capsule,extended release 24hr 150 mg PO BID Qty: 30 RF: 0 dexamethasone [Decadron] 4 mg tablet 4 mg PO DIRECTED Qty: 3 RF: 0 albuterol sulfate 90 mcg/actuation HFA aerosol inhaler 1 puff INHALATION Q4-6H PRN (Reason: shortness of breath or wheezing) Qty: 6.7 RF: 0 lamotrigine 150 mg tablet 150 mg PO TID Qty: 90 RF: 0 azithromycin 250 mg tablet See Label Instructions .ROUTE .COMPLEX Qty: 6 RF: 0 gabapentin 400 mg capsule 400 mg PO TID Qty: 90 RF: 0 venlafaxine 150 mg capsule,extended release 24hr 150 mg PO DAILY Qty: 30 RF: 0 amlodipine 5 mg tablet 5 mg PO DAILY Qty: 30 RF: 0 albuterol sulfate 90 mcg/actuation HFA aerosol inhaler 1 puff INHALATION Q4-6H PRN (Reason: shortness of breath) Qty: 6.7 RF: 0 lamotrigine 150 mg tablet 150 mg PO TID Qty: 90 RF: 0 gabapentin 400 mg capsule 400 mg PO TID Qty: 90 RF: 0 venlafaxine 150 mg capsule,extended release 24hr 300 mg PO DAILY Qty: 60 RF: 0 amlodipine 5 mg tablet 5 mg PO DAILY Qty: 30 RF: 0
[2018-01-11 03:56] LABS: RBC Urine None Seen (0-5/HPF)
[2018-01-11 04:04] LABS: Appearance Urine UA Slightly Cloudy; Color Urine UA YELLOW; Glucose Urine UA NEGATIVE (Normal); Ketones Urine UA TRACE (NEGATIVE); Leukocyte Esterase Urine UA 1+ (NEGATIVE); Nitrite Urine UA Negative (Negative); Occult Blood Urine UA NEGATIVE (Negative); Protein Urine UA TRACE (Negative); Urobilinogen Urine UA 0.2 E.U./dL (0.2)
[2018-01-11 04:05] LABS: Bilirubin Urine UA Negative (NEGATIVE)
[2018-01-11 04:06] LABS: Squamous Epithelial Cell Urine 1-5 /HPF; WBC Urine 10-30/HPF (0-5/HPF)
[2018-01-11 04:07] LABS: Bacteria Urine Many (>30); Culture Indicated Urine Specimen Cultured; Hyaline Casts Urine 0-1/LPF
[2018-01-11] MEDS: cefUROXime 250 MG TABLET 500 MG PO (04:35)
[2018-01-11] MEDS: PHENAZOPYRIDINE 100 MG PREPACK 1 BOTTLE MISC (04:35)
[2018-01-11 05:02] VITALS: BP 150/80; PULSE 82; RESP 18; TEMP 36.7; O2SAT 97
--- NOTE | 2018-01-12 14:50 | CM.SWNOTE ---
ED UNIT REACTOR OPERATOR Note: KEN was asked to provide mental health resources for pt as she has come to the emergency room 7x for medication refills since 07/22/17. According to her nurse, she would appreciate being contacted. ED UNIT REACTOR OPERATOR made calls to several local agencies and gathered the following information. Pt did not answer the phone and BERNARDINO was left requesting that she contact the office at [phone] for requested resources. Mental Health resources with medication management: 1. [facility]ry [facility] behavioral [facility] [place] [id number] [facility], [address], [place] [address] Contact above # for new pt paperwork. It can be mailed, faxed or person can greens picker. Once paperwork is completed appt for counseling to be scheduled. Med management can also be scheduled. Counsling is aproximately 6 weeks from now for an appt and April for med management. 2. left for Aug in [place], but was informed by [facility] that they did not have a current medication provider. 3. [facility], [facility], walk ins [phone] intake open access Tuesday 8:30 and 12:30 Tue. 8:30 They accept [employer].
== END 2018-01-11 05:02 | disposition home or self-care (01) ==
PROVIDERS: Emergency Provider Emergency Medicine; PCP Family Medicine
DX: N39.0 Urinary tract infection, site not specified (principal); J32.9 Chronic sinusitis, unspecified
CPT/HCPCS: 81001; 87086; 99282; 99283

== ENCOUNTER 2018-02-08 01:03 | Emergency (ER) | payer MEDICARE, MEDICAID, SELFPAY ==
[2018-02-08 01:18] VITALS: BP 159/84; PULSE 77; RESP 15; TEMP 36.8; O2SAT 96; BMI 35.2
--- NOTE | 2018-02-08 02:25 | ED_ITS ---
HPI - URI/Sore Throat General Chief Complaint: Upper Respiratory Symptoms Stated Complaint: COUGHING, THINKS SINUS INFECTION, CONGESTION Time Seen by Provider: 02/08/18 02:22 Source: patient Mode of arrival: ambulatory Limitations: no limitations History of Present Illness HPI Narrative: Patient states she has been coughing for about the last week, and has been congested. She states she thinks she might have a sinus infection. She denies fevers or chills, no facial pain, no chest pain or shortness of breath. Patient is coughing up a moderate amount of yellow sputum. MD Complaint: cough, sore throat and nasal congestion Onset (ago): week(s) ( One) Duration: constant Severity: moderate Relieving factors: nothing Exacerbating factors: other ( coughing) Description of mucous: other ( minimal, white) Able to tolerate fluids by mouth: Yes Context: other ( no sick contacts or recent travel.) Associated symptoms: denies other symptoms Treatments prior to arrival: none Related Data Home Medications Medication Instructions Recorded Confirmed furosemide 40 mg PO QDAY #0 09/15/17 Previous Rx's Medication Instructions Recorded albuterol sulfate [Ventolin HFA] 2 puff INH Q4HP PRN #1 ea 09/03/17 amlodipine [Norvasc] 5 mg PO QDAY #10 tab 09/03/17 albuterol sulfate 1 puff INHALATION Q4-6H PRN #6.7 10/14/17 gram amlodipine 5 mg PO DAILY #30 tab 10/14/17 albuterol sulfate 1 puff INHALATION Q4-6H PRN #6.7 11/01/17 gram amlodipine 5 mg PO DAILY #30 tab 11/22/17 venlafaxine 300 mg PO DAILY #60 cap 11/22/17 gabapentin 400 mg PO TID #90 cap 01/11/18 lamotrigine [Lamictal] 150 mg PO TID #90 tab 01/11/18 azithromycin See Label Instructions .ROUTE 02/08/18 .COMPLEX #6 tab Allergies Allergy/AdvReac Type Severity Reaction Status Date / Time Penicillins [PENICILLINS] Allergy Unknown Verified 02/08/18 01:18 sulfamethoxazole AdvReac Rash Verified 02/08/18 01:18 [From Bactrim] trimethoprim [From Bactrim] AdvReac Rash Verified 02/08/18 01:18 Review of Systems Review of Systems All systems reviewed & are unremarkable except as noted in HPI and below Constitutional Denies chills, Denies fever(s), Denies lethargy and Denies weakness Eyes Denies change in vision, Denies eye discharge, Denies irritation and Denies loss of vision ENT Ears, Nose, Mouth, and Throat: Denies change in voice, Denies neck pain and Denies sore throat Comments: Positive for sinus and nasal congestion. Cardiovascular Denies chest pain, Denies irregular heart rhythm, Denies lightheadedness, Denies palpitations, Denies dyspnea, Denies dyspnea on exertion and Denies orthopnea Respiratory Reports cough, Denies dyspnea, Denies dyspnea on exertion and Denies wheezing Gastrointestinal Gastrointestinal: Denies abdominal pain, Denies change in bowel habits, Denies diarrhea, Denies nausea and Denies vomiting Genitourinary Denies hematuria, Denies flank pain, Denies urinary incontinence and Denies urinary urgency Musculoskeletal Denies neck pain Integumentary/Breasts Denies pruritus, Denies erythema, Denies rash and Denies wounds Neurologic Denies confusion, Denies loss of vision and Denies weakness Psychiatric Denies anxiety, Denies confusion, Denies depression, Denies homicidal ideation and Denies suicidal ideation Endocrine Denies palpitations Hematologic/Lymphatic Denies easy bruising Allergic/Immunologic Denies wheezing [facility] Medical History Bronchitis (Acute) Upper respiratory infection (Acute) Sinusitis (Acute) Medication refill (Acute) CHF (congestive heart failure) (Acute) UTI (urinary tract infection) (Acute) Asthma exacerbation (Acute) Surgical History No pertinent past surgical history (Acute) Social History Smoking Status: Current some day smoker Exam Initial Vital Signs Initial Vital Signs: Vital Signs Temperature 98.2 F 02/08/18 01:18 Pulse Rate 77 02/08/18 01:18 Respiratory Rate 15 02/08/18 01:18 Blood Pressure 159/84 H 02/08/18 01:18 Pulse Oximetry 96 02/08/18 01:18 Const General: cooperative and well developed Nutritional Appearance: well nourished Orientation: alert, awake, oriented x3 and not confused [facility] Head: normocephalic and atraumatic Ears: external ears normal and TM's normal bilaterally Nose: external nose normal and No nasal discharge Face and sinus: sinuses nontender, face symmetric, no sinus tenderness and No dry mucous membranes Mouth: oral mucosae normal and moist mucous membranes Teeth and gingiva: dentition normal Throat: tonsils normal and uvula midline Eyes General: appearance normal, both eyes and all related structures Eyelids: eyelids normal Conjunctivae: conjunctivae normal Sclera: sclerae normal Pupils: PERRL EOM: EOM intact bilaterally Neck Neck: normal visual inspection, trachea midline, No lymphadenopathy, No midline deformity and No JVD Lymphatic: No lymphedema Chest Chest: normal inspection of the chest Resp Effort & Inspection: normal respiratory effort, able to speak in complete sentences, no respiratory distress and no use of accessory muscles Auscultation: clear to auscultation bilaterally, no rales, no rhonchi and no wheezes Cardio Rate: regular rate Rhythm: regular rhythm Heart Sounds: no click, no gallops, no murmurs and no rubs Pulses: normal peripheral pulses GI Inspection: non-distended Palpation: soft, no hepatosplenomegaly, No guarding, No pulsatile mass and No tender Auscultation: normal bowel sounds Back/Spine/Pelvis Back: No CVA tenderness Cervical Spine: cervical ROM normal and No pain with cervical ROM Thoracic/Lumbar Spine: thoracic and lumbar spine normal to inspection Skin General: no rashes or lesions noted, No jaundice and No petechiae Neuro General: alert, oriented x3, gait normal and no focal motor deficits Speech: speech normal Extrem General: full ROM, no clubbing, cyanosis or edema, no pedal edema and no calf tenderness Psych Appearance: well kempt Mental Status: mental status grossly normal Attitude: cooperative Thought Content: normal and suicidality Judgment: judgment good Course Hospital Course: The patient was fairly well-appearing in the emergency department. She was given a dose of ibuprofen and worked up with a chest x-ray, which was found to be negative. Patient was treated with Zithromax for presumed bronchitis. I felt she was stable for discharge home. We have discussed symptomatic management at home, as well as the usual indications for return. Orders Ordered: Discontinued Medications Azithromycin (Zithromax) 500 mg PO NOW ONE Stop: 02/08/18 02:37 Last Admin: 02/08/18 02:42 Dose: 500 mg Ibuprofen (Advil) 800 mg PO NOW ONE Stop: 02/08/18 02:37 Last Admin: 02/08/18 02:42 Dose: 800 mg Vital Signs - 8 hr 02/08/18 01:18 Temperature 98.2 F Pulse Rate 77 Respiratory Rate 15 Blood Pressure 159/84 H Pulse Oximetry 96 MDM - URI/Sore Throat Medical Records Attestation: I reviewed the patient's medical records. Imaging Data Chest x-ray: Attestation: I personally reviewed and interpreted this imaging study as follows: My impression: No acute disease. Radiologist's impression: PROCEDURE: XR CHEST 2V INDICATIONS: cough, dyspnea TECHNIQUE: 2 views of the chest were acquired. COMPARISON: [facility], , XR CHEST 2V, 11/01/2017, 7:09. FINDINGS: Surgical changes and devices: None. Lungs and pleura: No pleural effusions or pneumothorax. Lungs are clear. Mediastinum: Mediastinal contours are normal. Heart size is normal. Bones and chest wall: No suspicious bony abnormalities. Soft tissues appear unremarkable. IMPRESSION: No radiographic evidence of acute cardiopulmonary pathology. Dictated by: José Antonio Sarmiento M.D. on 02/08/2018 at 8:20 Approved by: José Antonio Sarmiento M.D. on 02/08/2018 at 8:20 Discharge Plan Departure Patient Disposition: Home Clinical Impression: Bronchitis, Sinusitis, Upper respiratory infection Discharge Date/Time: 02/08/18 04:07 Interventions: ED Discharge Assessment Last Done: 02/08/18 04:07 Instructions: DI for Acute Bronchitis, DI for Viral Upper Respiratory Infection -- Adult Activity Restrictions/Additional Instructions: Your chest x-ray looks good. Prescriptions: New azithromycin 500 mg tablet See Label Instructions .ROUTE .COMPLEX Qty: 6 RF: 0 No Action amlodipine [Norvasc] 5 MG tablet 5 mg PO QDAY Qty: 10 RF: 0 albuterol sulfate [Ventolin HFA] 90 MCG/PUFF HFA aerosol inhaler 2 puff INH Q4HP PRNQty: 1 RF: 0 furosemide 40 MG tablet 40 mg PO QDAY Qty: 0 RF: 0 albuterol sulfate 90 mcg/actuation HFA aerosol inhaler 1 puff INHALATION Q4-6H PRN (Reason: shortness of breath or wheezing) Qty: 6.7 RF: 0 gabapentin 400 mg capsule 400 mg PO TID Qty: 90 RF: 0 lamotrigine [Lamictal] 150 mg tablet 150 mg PO TID Qty: 90 RF: 0 amlodipine 5 mg tablet 5 mg PO DAILY Qty: 30 RF: 0 albuterol sulfate 90 mcg/actuation HFA aerosol inhaler 1 puff INHALATION Q4-6H PRN (Reason: shortness of breath) Qty: 6.7 RF: 0 venlafaxine 150 mg capsule,extended release 24hr 300 mg PO DAILY Qty: 60 RF: 0 amlodipine 5 mg tablet 5 mg PO DAILY Qty: 30 RF: 0 Referrals: Aaron Blanchard MD [Primary Care Provider] - (Please follow up in 5 days if you are not noticeably improved.)
--- NOTE | 2018-02-08 02:34 | DI.RAD.S_ITS ---
PROCEDURE: XR CHEST 2V INDICATIONS: cough, dyspnea TECHNIQUE: 2 views of the chest were acquired. COMPARISON: [facility], CR, XR CHEST 2V, 11/01/2017, 7:09. FINDINGS: Surgical changes and devices: None. Lungs and pleura: No pleural effusions or pneumothorax. Lungs are clear. Mediastinum: Mediastinal contours are normal. Heart size is normal. Bones and chest wall: No suspicious bony abnormalities. Soft tissues appear unremarkable. IMPRESSION: No radiographic evidence of acute cardiopulmonary pathology. Dictated by: José Antonio Sarmiento M.D. on 02/08/2018 at 8:20 Approved by: José Antonio Sarmiento M.D. on 02/08/2018 at 8:20
[2018-02-08] MEDS: AZITHROMYCIN 250 MG TABLET 500 MG PO (02:42)
[2018-02-08] MEDS: IBUPROFEN 400 MG TABLET 800 MG PO (02:42)
[2018-02-08 03:40] VITALS: BP 158/77; PULSE 84; RESP 16; O2SAT 94
[2018-02-08 04:05] VITALS: BP 133/77; PULSE 67; RESP 16; O2SAT 97
== END 2018-02-08 04:07 | disposition home or self-care (01) ==
PROVIDERS: Emergency Provider Emergency Medicine; PCP Family Medicine
DX: J40 Bronchitis, not specified as acute or chronic (principal); J32.9 Chronic sinusitis, unspecified; J06.9 Acute upper respiratory infection, unspecified
CPT/HCPCS: 71046; 99282; 99283

== ENCOUNTER 2018-03-02 13:48 | Emergency (ER) | payer MEDICARE, MEDICAID, SELFPAY ==
--- NOTE | 2018-03-02 14:07 | PC.NURSE ---
In [place] to give UA before triage
[2018-03-02 14:12] VITALS: BP 144/81; PULSE 95; RESP 22; TEMP 36.4; O2SAT 96; BMI 37.0
[2018-03-02 14:13] LABS: Bacteria Urine None Seen
--- NOTE | 2018-03-02 14:15 | DI.RAD.S_ITS ---
PROCEDURE: XR CHEST 2V INDICATIONS: difficulty breathing, cold sx TECHNIQUE: 2 views of the chest were acquired. COMPARISON: [facility], CR, XR CHEST 2V, 02/08/2018, 2:14. FINDINGS: Surgical changes and devices: None. Lungs and pleura: Unchanged trace left costophrenic angle blunting. Mediastinum: Mediastinal contours are normal. Heart size is mildly prominent. Bones and chest wall: No suspicious bony abnormalities. Soft tissues appear unremarkable. IMPRESSION: No acute pulmonary process. Dictated by: Shiela Albert M.D. on 03/02/2018 at 14:37 Approved by: Shiela Albert M.D. on 03/02/2018 at 14:50
--- NOTE | 2018-03-02 14:15 | PC.NURSE ---
Also states out of mental health meds and needs them but cant afford them
[2018-03-02 14:28] LABS: Appearance Urine UA CLEAR; Bilirubin Urine UA NEGATIVE (NEGATIVE); Color Urine UA YELLOW; Glucose Urine UA NEGATIVE (Normal); Ketones Urine UA NEGATIVE (NEGATIVE); Leukocyte Esterase Urine UA TRACE (NEGATIVE); Nitrite Urine UA Negative (Negative); Occult Blood Urine UA 1+ (Negative); Protein Urine UA TRACE (Negative); Specific Gravity Urine UA 1.025 (1.000-1.035); Urobilinogen Urine UA 0.2 E.U./dL (0.2)
[2018-03-02 14:51] LABS: Culture Indicated Urine Cult Not Indicated; RBC Urine 1-5/HPF (0-5/HPF); Squamous Epithelial Cell Urine 5-10 /HPF; WBC Urine 5-10/HPF (0-5/HPF)
--- NOTE | 2018-03-02 18:36 | ED_ITS ---
HPI - Female Genitourinary <RUTHIE Bridges - Last Filed: 03/02/18 22:07> General Chief complaint: Urogenital-Female Stated complaint: 'NOT FEELING WELL,HURT ALL OVER/CONFUSED' Time Seen by Provider: 03/02/18 18:23 Source: patient Mode of arrival: ambulatory Limitations: no limitations History of Present Illness HPI Narrative: 72-year-old female here for complaint of having sinus pressure and increased urinary frequency over the past couple weeks. She has been treated for urinary tract infection and upper respiratory infection with antibiotics. She states that the symptoms have not resolved. She also states she has a refill of her mental health medications as she has not been able to get to her provider. She has been seen here in the emergency room multiple times for this and has been instructed to follow up with primary care as the ER is not proper for her to be getting her primary care medications through. Patient states she has had transportation problems and has not been able to get with her provider. She denies any fevers. Positive p.o. intake. She denies any suicidal or homicidal ideation at this time. However she does state she does not taking medications that she does get suicidal MD Complaint: dysuria Related Data Home Medications Medication Instructions Recorded Confirmed furosemide 40 mg PO QDAY #0 09/15/17 Previous Rx's Medication Instructions Recorded albuterol sulfate [Ventolin HFA] 2 puff INH Q4HP PRN #1 ea 09/03/17 amlodipine [Norvasc] 5 mg PO QDAY #10 tab 09/03/17 albuterol sulfate 1 puff INHALATION Q4-6H PRN #6.7 10/14/17 gram amlodipine 5 mg PO DAILY #30 tab 10/14/17 albuterol sulfate 1 puff INHALATION Q4-6H PRN #6.7 11/01/17 gram amlodipine 5 mg PO DAILY #30 tab 11/22/17 venlafaxine 300 mg PO DAILY #60 cap 11/22/17 gabapentin 400 mg PO TID #90 cap 01/11/18 lamotrigine [Lamictal] 150 mg PO TID #90 tab 01/11/18 azithromycin See Label Instructions .ROUTE 02/08/18 .COMPLEX #6 tab gabapentin 400 mg PO TID #90 cap 03/02/18 lamotrigine 150 mg PO TID #90 tab 03/02/18 levofloxacin [Levaquin] 750 mg PO DAILY #7 tab 03/02/18 venlafaxine 150 mg PO BEDTIME #60 tab 03/02/18 Allergies Allergy/AdvReac Type Severity Reaction Status Date / Time Penicillins [PENICILLINS] Allergy Unknown Verified 02/08/18 01:18 sulfamethoxazole AdvReac Rash Verified 02/08/18 01:18 [From Bactrim] trimethoprim [From Bactrim] AdvReac Rash Verified 02/08/18 01:18 Review of Systems <RUTHIE Bridges - Last Filed: 03/02/18 22:07> Constitutional Denies chills, Denies fever(s), Denies lethargy and Denies weakness Eyes Denies change in vision, Denies eye discharge, Denies irritation and Denies loss of vision ENT Ears, Nose, Mouth, and Throat: Reports nasal congestion Cardiovascular Denies chest pain, Denies irregular heart rhythm, Denies lightheadedness, Denies palpitations, Denies dyspnea, Denies dyspnea on exertion and Denies orthopnea Respiratory Denies cough, Denies dyspnea, Denies dyspnea on exertion and Denies wheezing Gastrointestinal Gastrointestinal: Denies abdominal pain, Denies change in bowel habits, Denies diarrhea, Denies nausea and Denies vomiting Genitourinary Reports urinary frequency Musculoskeletal Denies back pain, Denies muscle weakness, Denies numbness and Denies tingling Neurologic Denies confusion, Denies loss of vision, Denies numbness, Denies tingling and Denies weakness Psychiatric Denies anxiety, Denies confusion, Denies depression, Denies homicidal ideation and Denies suicidal ideation Endocrine Denies palpitations Allergic/Immunologic Denies wheezing Exam <RUTHIE Bridges - Last Filed: 03/02/18 22:07> Initial Vital Signs Initial Vital Signs: Vital Signs Temperature 97.5 F L 03/02/18 14:12 Pulse Rate 95 H 03/02/18 14:12 Respiratory Rate 22 03/02/18 14:12 Blood Pressure 144/81 H 03/02/18 14:12 Pulse Oximetry 96 03/02/18 14:12 Const General: cooperative and well developed Nutritional Appearance: well nourished Orientation: alert, awake, oriented x3 and not confused [facility] Face and sinus: normal facial exam, sinuses nontender and dry mucous membranes Mouth: oral mucosae normal and moist mucous membranes Eyes Conjunctivae: conjunctivae normal Sclera: sclerae normal Pupils: PERRL EOM: EOM intact bilaterally Resp Effort & Inspection: normal respiratory effort, able to speak in complete sentences, no respiratory distress and no use of accessory muscles Auscultation: clear to auscultation bilaterally, no rales, no rhonchi and no wheezes Cardio Rate: regular rate Rhythm: regular rhythm Heart Sounds: no click, no gallops, no murmurs and no rubs Pulses: normal peripheral pulses GI Inspection: non-distended Palpation: soft, no hepatosplenomegaly, No guarding, No pulsatile mass and No tender Auscultation: normal bowel sounds General: No CVA tenderness Skin General: no rashes or lesions noted, No jaundice and No petechiae Neuro General: alert, oriented x3, gait normal and no focal motor deficits Speech: speech normal <Chhaya Torres DO - Last Filed: 03/03/18 03:03> Initial Vital Signs Initial Vital Signs: Vital Signs Temperature 97.5 F L 03/02/18 14:12 Pulse Rate 95 H 03/02/18 14:12 Respiratory Rate 22 03/02/18 14:12 Blood Pressure 144/81 H 03/02/18 14:12 Pulse Oximetry 96 03/02/18 14:12 Course <RUTHIE Bridges - Last Filed: 03/02/18 22:07> Orders Ordered: ED Orders 03/02/18 18:20 Urinalysis and Microscopic Stat Urine Culture Stat Vital Signs - 8 hr 03/02/18 19:52 Pulse Rate 73 Blood Pressure 151/98 H <DO Jesus Coronado Last Filed: 03/03/18 03:03> Orders Ordered: ED Orders 03/02/18 18:20 Urinalysis and Microscopic Stat Urine Culture Stat Vital Signs - 8 hr 03/02/18 19:52 Pulse Rate 73 Blood Pressure 151/98 H MDM - Female Genitourinary <RUTHIE Bridges - Last Filed: 03/02/18 22:07> Lab Data Lab Results 03/02/18 03/02/18 Range/Units 14:05 18:20 Urine Color Yellow Yellow Urine Appearance Clear Clear Urine pH 5.0 6.0 (4.5-8.0) Ur Specific [place] 1.025 1.010 (1.000-1.035) Urine Protein Trace H Negative (Negative) Urine Glucose (UA) Negative Negative (Normal) g/dL Urine Ketones Negative Negative (NEGATIVE) Urine Occult Blood 1+ H Trace-lysed (Negative) Urine Nitrate Negative Negative (Negative) Urine Bilirubin Negative Negative (NEGATIVE) Urine Urobilinogen 0.2 0.2 (0.2) E.U./dL Ur Leukocyte Esterase Trace H 1+ H (NEGATIVE) Urine RBC 1-5/hpf 0-1/hpf (0-5/HPF) Urine WBC 5-10/hpf H 5-10/hpf H (0-5/HPF) Ur Squamous Epith Cells 5-10 /hpf H 0-1 /hpf Urine Bacteria None seen Occasional (0-1) (None) Ur Culture Indicated? Cult not indicated Specimen cultured Micro UA Comment Not Reportable Not Reportable MDM Narrative Medical decision making narrative: Urinalysis indicates urinary tract infection. Patient still having symptoms of her sinus congestion. She is prescribed Levaquin. Refills of her mental health medications were provided. She is strongly encouraged to follow up with her primary care provider next week for re-evaluation. Plenty of fluids and rest. Return emergency room for any worsening some <Chhaya Torres, DO - Last Filed: 03/03/18 03:03> Lab Data Lab Results 03/02/18 03/02/18 Range/Units 14:05 18:20 Urine Color Yellow Yellow Urine Appearance Clear Clear Urine pH 5.0 6.0 (4.5-8.0) Ur Specific [place] 1.025 1.010 (1.000-1.035) Urine Protein Trace H Negative (Negative) Urine Glucose (UA) Negative Negative (Normal) g/dL Urine Ketones Negative Negative (NEGATIVE) Urine Occult Blood 1+ H Trace-lysed (Negative) Urine Nitrate Negative Negative (Negative) Urine Bilirubin Negative Negative (NEGATIVE) Urine Urobilinogen 0.2 0.2 (0.2) E.U./dL Ur Leukocyte Esterase Trace H 1+ H (NEGATIVE) Urine RBC 1-5/hpf 0-1/hpf (0-5/HPF) Urine WBC 5-10/hpf H 5-10/hpf H (0-5/HPF) Ur Squamous Epith Cells 5-10 /hpf H 0-1 /hpf Urine Bacteria None seen Occasional (0-1) (None) Ur Culture Indicated? Cult not indicated Specimen cultured Micro UA Comment Not Reportable Not Reportable Discharge Plan Departure Patient Disposition: Home Clinical Impression: Sinusitis, Medication refill, UTI (urinary tract infection) Discharge Date/Time: 03/02/18 19:53 Interventions: ED Discharge Assessment Last Done: 03/02/18 19:52 Instructions: Urinary Tract Infection Activity Restrictions/Additional Instructions: Urinalysis indicates urinary tract infection. You have been placed on antibiotic called Levaquin that will treat both sinus issues and also urinary tract infection. Use as directed. Plenty of fluids and rest. Tylenol as needed for any discomfort. Medication refills for year mental health medications has been filled. You need to follow up with her primary care provider next week for re-evaluation. For any worsening symptoms return to the emergency room. Prescriptions: New lamotrigine 150 mg tablet 150 mg PO TID Qty: 90 RF: 0 gabapentin 400 mg capsule 400 mg PO TID Qty: 90 RF: 0 levofloxacin [Levaquin] 750 mg tablet 750 mg PO DAILY Qty: 7 RF: 0 venlafaxine 150 mg tablet extended release 24hr 150 mg PO BEDTIME Qty: 60 RF: 0 No Action amlodipine [Norvasc] 5 MG tablet 5 mg PO QDAY Qty: 10 RF: 0 albuterol sulfate [Ventolin HFA] 90 MCG/PUFF HFA aerosol inhaler 2 puff INH Q4HP PRNQty: 1 RF: 0 furosemide 40 MG tablet 40 mg PO QDAY Qty: 0 RF: 0 albuterol sulfate 90 mcg/actuation HFA aerosol inhaler 1 puff INHALATION Q4-6H PRN (Reason: shortness of breath or wheezing) Qty: 6.7 RF: 0 gabapentin 400 mg capsule 400 mg PO TID Qty: 90 RF: 0 lamotrigine [Lamictal] 150 mg tablet 150 mg PO TID Qty: 90 RF: 0 amlodipine 5 mg tablet 5 mg PO DAILY Qty: 30 RF: 0 albuterol sulfate 90 mcg/actuation HFA aerosol inhaler 1 puff INHALATION Q4-6H PRN (Reason: shortness of breath) Qty: 6.7 RF: 0 venlafaxine 150 mg capsule,extended release 24hr 300 mg PO DAILY Qty: 60 RF: 0 amlodipine 5 mg tablet 5 mg PO DAILY Qty: 30 RF: 0 azithromycin 500 mg tablet See Label Instructions .ROUTE .COMPLEX Qty: 6 RF: 0 Referrals: Aaron Blanchard MD [Primary Care Provider] - <Chhaya Torres DO - Last Filed: 03/03/18 03:03> Cosign ED Attending Eb Attestation: I was immediately available in the department for consultation. Documentation has been reviewed. I agree with assessment and plan.
[2018-03-02 18:39] LABS: Appearance Urine UA CLEAR; Bilirubin Urine UA NEGATIVE (NEGATIVE); Color Urine UA YELLOW; Glucose Urine UA NEGATIVE (Normal); Ketones Urine UA NEGATIVE (NEGATIVE); Leukocyte Esterase Urine UA 1+ (NEGATIVE); Nitrite Urine UA Negative (Negative); Occult Blood Urine UA TRACE-LYSED (Negative); Protein Urine UA NEGATIVE (Negative); Urobilinogen Urine UA 0.2 E.U./dL (0.2)
[2018-03-02 18:47] LABS: Bacteria Urine Occasional (0-1); Culture Indicated Urine Specimen Cultured; RBC Urine 0-1/HPF (0-5/HPF); Squamous Epithelial Cell Urine 0-1 /HPF; WBC Urine 5-10/HPF (0-5/HPF)
[2018-03-02 19:52] VITALS: BP 151/98; PULSE 73
== END 2018-03-02 19:53 | disposition home or self-care (01) ==
PROVIDERS: Emergency Provider Nurse Practitioner Family; PCP Family Medicine
DX: J32.9 Chronic sinusitis, unspecified (principal); N39.0 Urinary tract infection, site not specified; Z76.0 Encounter for issue of repeat prescription
CPT/HCPCS: 71046; 81001; 87086; 99282; 99284

== ENCOUNTER 2018-04-01 15:16 | Emergency (ER) | payer MEDICARE, MEDICAID, SELFPAY ==
[2018-04-01 15:47] VITALS: BP 170/90; PULSE 85; RESP 13; TEMP 36.3; O2SAT 97
--- NOTE | 2018-04-01 16:03 | ED_ITS ---
HPI - Psych General Chief Complaint: Psychiatric Symptoms Stated Complaint: states manic,Bi polar,depressed Time Seen by Provider: 04/01/18 16:03 Source: patient Mode of arrival: ambulatory Limitations: no limitations History of Present Illness HPI Narrative: 72-year-old female who I have seen here in the emergency department multiple times in the past for refill of her psychiatric medicines returns today stating that she has not been on her medicines for the past 4 days. She states that she does not have any money to fill the medications. She states that she has not set up a primary care doctor. She states she has been contacted by case management to help her do this but has not followed through with anything. She states that since she has not been on her medicines she has been ?rapid cycling ?between being manic and depressed. No SI. She does take care of her disabled son at home. She states she does not want admitted to the hospital. Related Data Home Medications Medication Instructions Recorded Confirmed furosemide 40 mg PO QDAY #0 09/15/17 Previous Rx's Medication Instructions Recorded albuterol sulfate [Ventolin HFA] 2 puff INH Q4HP PRN #1 ea 09/03/17 amlodipine [Norvasc] 5 mg PO QDAY #10 tab 09/03/17 albuterol sulfate 1 puff INHALATION Q4-6H PRN #6.7 10/14/17 gram amlodipine 5 mg PO DAILY #30 tab 10/14/17 albuterol sulfate 1 puff INHALATION Q4-6H PRN #6.7 11/01/17 gram amlodipine 5 mg PO DAILY #30 tab 11/22/17 venlafaxine 300 mg PO DAILY #60 cap 11/22/17 gabapentin 400 mg PO TID #90 cap 01/11/18 lamotrigine [Lamictal] 150 mg PO TID #90 tab 01/11/18 azithromycin See Label Instructions .ROUTE 02/08/18 .COMPLEX #6 tab gabapentin 400 mg PO TID #90 cap 03/02/18 lamotrigine 150 mg PO TID #90 tab 03/02/18 levofloxacin [Levaquin] 750 mg PO DAILY #7 tab 03/02/18 venlafaxine 150 mg PO BEDTIME #60 tab 03/02/18 amlodipine 5 mg PO DAILY #30 tab 04/01/18 gabapentin 400 mg PO TID #90 cap 04/01/18 lamotrigine 150 mg PO TID #90 tab 04/01/18 venlafaxine 300 mg PO DAILY #60 tab 04/01/18 Allergies Allergy/AdvReac Type Severity Reaction Status Date / Time Penicillins [PENICILLINS] Allergy Unknown Verified 02/08/18 01:18 sulfamethoxazole AdvReac Rash Verified 02/08/18 01:18 [From Bactrim] trimethoprim [From Bactrim] AdvReac Rash Verified 02/08/18 01:18 Review of Systems Constitutional Denies fever(s) Cardiovascular Denies chest pain and Denies dyspnea Respiratory Denies dyspnea Gastrointestinal Gastrointestinal: Denies abdominal pain Musculoskeletal Denies myalgias and Denies arthralgias Integumentary/Breasts Denies rash Hematologic/Lymphatic Denies easy bleeding and Denies easy bruising [facility] Medical History Sinusitis (Acute) Medication refill (Acute) CHF (congestive heart failure) (Acute) UTI (urinary tract infection) (Acute) Asthma exacerbation (Acute) Bronchitis (Inactive) Upper respiratory infection (Inactive) Surgical History No pertinent past surgical history (Acute) Social History Smoking Status: Current some day smoker Exam Initial Vital Signs Initial Vital Signs: Vital Signs Temperature 97.4 F L 04/01/18 15:47 Pulse Rate 85 04/01/18 15:47 Respiratory Rate 13 04/01/18 15:47 Blood Pressure 170/90 H 04/01/18 15:47 Pulse Oximetry 97 04/01/18 15:47 Const General: cooperative, healthy appearing, comfortable, well developed, well groomed and No acute distress Orientation: alert, awake and oriented x3 HENMT Head: normal to inspection and normocephalic Resp Effort & Inspection: normal respiratory effort Auscultation: clear to auscultation bilaterally Cardio Rate: regular rate Rhythm: regular rhythm Skin Lesions: no lesions Rashes: no rashes Extrem General: normal to inspection and capillary refill normal Psych Appearance: grossly normal and well kempt Mental Status: other (Crying) Speech and Movement: speech and movement normal Mood: not manic and other (Crying) Affect: sad Attitude: cooperative Thought Process: normal Thought Content: normal, no homicidality and suicidality Course Vital Signs - 8 hr 04/01/18 15:47 Temperature 97.4 F L Pulse Rate 85 Respiratory Rate 13 Blood Pressure 170/90 H Pulse Oximetry 97 MDM - Psych MDM Narrative Medical decision making narrative: Patient does not want admitted to the hospital. She does wants refills of her psychiatric medications. We also discussed her living situation. She was given resources for the [facility] with regard to primary care doctors and also living situations. I will refill her medications today. She does not need emergent admission to the hospital she has no suicidality or homicidality. Patient was given return precautions. She expressed understanding and agreement with plan. Discharge Plan Departure Patient Disposition: Home Clinical Impression: Depression Instructions: Bipolar Disorder (Alternative Therapy), Depression, Bipolar Disorder Activity Restrictions/Additional Instructions: It is important that you may contact with the primary care doctor in the area. You can contact 1 of the local Medical group such as [facility] and [phone] or and [facility] at [phone] or [facility] at [phone]. Return to the emergency department for any new or worsening symptoms Prescriptions: New lamotrigine 150 mg tablet 150 mg PO TID Qty: 90 RF: 0 gabapentin 400 mg capsule 400 mg PO TID Qty: 90 RF: 0 amlodipine 5 mg tablet 5 mg PO DAILY Qty: 30 RF: 0 venlafaxine 150 mg tablet extended release 24hr 300 mg PO DAILY Qty: 60 RF: 0 No Action amlodipine [Norvasc] 5 MG tablet 5 mg PO QDAY Qty: 10 RF: 0 albuterol sulfate [Ventolin HFA] 90 MCG/PUFF HFA aerosol inhaler 2 puff INH Q4HP PRNQty: 1 RF: 0 furosemide 40 MG tablet 40 mg PO QDAY Qty: 0 RF: 0 albuterol sulfate 90 mcg/actuation HFA aerosol inhaler 1 puff INHALATION Q4-6H PRN (Reason: shortness of breath or wheezing) Qty: 6.7 RF: 0 gabapentin 400 mg capsule 400 mg PO TID Qty: 90 RF: 0 lamotrigine [Lamictal] 150 mg tablet 150 mg PO TID Qty: 90 RF: 0 lamotrigine 150 mg tablet 150 mg PO TID Qty: 90 RF: 0 gabapentin 400 mg capsule 400 mg PO TID Qty: 90 RF: 0 levofloxacin [Levaquin] 750 mg tablet 750 mg PO DAILY Qty: 7 RF: 0 venlafaxine 150 mg tablet extended release 24hr 150 mg PO BEDTIME Qty: 60 RF: 0 amlodipine 5 mg tablet 5 mg PO DAILY Qty: 30 RF: 0 albuterol sulfate 90 mcg/actuation HFA aerosol inhaler 1 puff INHALATION Q4-6H PRN (Reason: shortness of breath) Qty: 6.7 RF: 0 venlafaxine 150 mg capsule,extended release 24hr 300 mg PO DAILY Qty: 60 RF: 0 amlodipine 5 mg tablet 5 mg PO DAILY Qty: 30 RF: 0 azithromycin 500 mg tablet See Label Instructions .ROUTE .COMPLEX Qty: 6 RF: 0
--- NOTE | 2018-04-01 16:49 | PC.NURSE ---
Called pt at home to see why she left. She thought after the doctor talked to her she was discharged and that we were electronically sending her Rx. I faxed her Rx to [facility]. I also call the pharmacy to let them know that they were being faxed. The pharmacy told me that he would see what he could do since they close in 1 hour.
== END 2018-04-01 16:36 | disposition left against medical advice (07) ==
PROVIDERS: Emergency Provider Emergency Medicine; PCP Family Medicine
DX: F32.9 Major depressive disorder, single episode, unspecified (principal)
CPT/HCPCS: 99282

== ENCOUNTER 2018-05-05 08:27 | Emergency (ER) | payer MEDICARE, MEDICAID, SELFPAY ==
--- NOTE | 2018-05-05 08:37 | ED_ITS ---
HPI - SOB/Dyspnea General Chief Complaint: Shortness of Breath/Dyspnea Stated Complaint: BRONCHITIS/COLD GOT WORSE Time Seen by Provider: 05/05/18 08:34 Source: patient Mode of arrival: ambulatory Limitations: no limitations History of Present Illness patient is a 72-year-old female who I have evaluated multiple times here in the emergency department in the past for various issues here for evaluation cough, fevers, shortness of breath and concerns for bronchitis. Patient does have a history of asthma. He has occasional smoker. No history of COPD. Does have albuterol at home. She states for the past couple days has had increased production of cough, fevers but has not taken her temperature at home. Some shortness of breath, some wheezing. Related Data Home Medications Medication Instructions Recorded Confirmed furosemide 40 mg PO QDAY #0 09/15/17 Previous Rx's Medication Instructions Recorded albuterol sulfate [Ventolin HFA] 2 puff INH Q4HP PRN #1 ea 09/03/17 amlodipine [Norvasc] 5 mg PO QDAY #10 tab 09/03/17 albuterol sulfate 1 puff INHALATION Q4-6H PRN #6.7 10/14/17 gram amlodipine 5 mg PO DAILY #30 tab 10/14/17 albuterol sulfate 1 puff INHALATION Q4-6H PRN #6.7 11/01/17 gram amlodipine 5 mg PO DAILY #30 tab 11/22/17 venlafaxine 300 mg PO DAILY #60 cap 11/22/17 gabapentin 400 mg PO TID #90 cap 01/11/18 lamotrigine [Lamictal] 150 mg PO TID #90 tab 01/11/18 azithromycin See Label Instructions .ROUTE 02/08/18 .COMPLEX #6 tab gabapentin 400 mg PO TID #90 cap 03/02/18 lamotrigine 150 mg PO TID #90 tab 03/02/18 levofloxacin [Levaquin] 750 mg PO DAILY #7 tab 03/02/18 venlafaxine 150 mg PO BEDTIME #60 tab 03/02/18 amlodipine 5 mg PO DAILY #30 tab 04/01/18 gabapentin 400 mg PO TID #90 cap 04/01/18 lamotrigine 150 mg PO TID #90 tab 04/01/18 venlafaxine 300 mg PO DAILY #60 tab 04/01/18 albuterol sulfate 1 puff INHALATION Q4-6H PRN #18 05/05/18 gram gabapentin 400 mg PO TID #90 cap 05/05/18 lamotrigine 150 mg PO TID #90 tab 05/05/18 venlafaxine 150 mg PO BID #60 cap 05/05/18 Allergies Allergy/AdvReac Type Severity Reaction Status Date / Time Penicillins [PENICILLINS] Allergy Unknown Verified 05/05/18 08:54 sulfamethoxazole AdvReac Rash Verified 05/05/18 08:54 [From Bactrim] trimethoprim [From Bactrim] AdvReac Rash Verified 05/05/18 08:54 Review of Systems Constitutional Reports fatigue, Reports fever(s) and Denies headache(s) ENT Ears, Nose, Mouth, and Throat: Denies headache(s), Denies lip swelling and Denies throat swelling Cardiovascular Denies chest pain and Reports dyspnea Respiratory Reports cough, Reports dyspnea and Reports wheezing Gastrointestinal Gastrointestinal: Denies abdominal pain, Denies change in bowel habits, Denies nausea and Denies vomiting Genitourinary Denies dysuria Musculoskeletal Denies myalgias and Denies arthralgias Integumentary/Breasts Denies lesions and Denies rash Neurologic Denies confusion and Denies headache(s) Psychiatric Denies confusion Endocrine Reports fatigue Hematologic/Lymphatic Denies easy bleeding and Denies easy bruising Allergic/Immunologic Denies urticaria, Denies lip swelling, Denies seasonal rhinorrhea, Denies throat swelling and Reports wheezing [facility] Social History Smoking Status: Current some day smoker Exam Initial Vital Signs Initial Vital Signs: Vital Signs Temperature 98.4 F 05/05/18 08:39 Pulse Rate 88 05/05/18 08:39 Respiratory Rate 20 05/05/18 08:39 Blood Pressure 179/98 H 05/05/18 08:39 Pulse Oximetry 99 05/05/18 08:39 Const General: comfortable, well developed, well groomed, No acute distress and diaphoretic Orientation: alert, awake and oriented x3 HENMT Head: normal to inspection and normocephalic Resp Effort & Inspection: normal respiratory effort, cough, no grunting, not labored , no retractions, no stridor and not tachypneic Auscultation: rhonchi and wheezes Cardio Rate: regular rate Rhythm: regular rhythm GI Inspection: non-distended Palpation: soft Skin Lesions: no lesions Rashes: no rashes Neuro General: alert, awake and oriented x3 Extrem General: normal to inspection, capillary refill normal and No edema Psych Appearance: grossly normal and well kempt Course Orders Ordered: ED Orders 05/05/18 08:43 XR chest 1V Stat 05/05/18 08:44 EKG-12 Lead Stat RT Consult Eval and Treat Now 05/05/18 08:45 B Type Natriuretic Peptide Stat Basic Metabolic Panel Stat Complete Blood Count AUTO DIFF Stat Influenza A and B by PCR Rapid Stat Lactate (Lactic Acid) Stat Procalcitonin Stat 05/05/18 08:52 Consult to [employer] Stat Discontinued Medications Albuterol/Ipratropium (Duoneb) 3 ml INH NOW ONE Stop: 05/05/18 08:43 Last Admin: 05/05/18 09:17 Dose: 3 ml Dexamethasone (Decadron) 10 mg PO NOW ONE Stop: 05/05/18 08:43 Last Admin: 05/05/18 09:09 Dose: 10 mg Vital Signs - 8 hr 05/05/18 08:39 05/05/18 09:21 Temperature 98.4 F Pulse Rate 88 78 Respiratory Rate 20 18 Blood Pressure 179/98 H Pulse Oximetry 99 97 MDM - SOB/Dyspnea Medical Records Attestation: I reviewed the patient's medical records. Lab Data Attestation: I reviewed the patient's lab results. Result diagrams: 05/05/18 08:45 05/05/18 08:45 Lab Results 05/05/18 05/05/18 05/05/18 Range/Units 08:45 08:45 08:45 WBC 6.7 (4.5-11.0) X10^3/uL RBC 4.71 (4.0-5.2) X10^6/uL Hgb 14.4 (12.0-16.0) g/dL Hct 43.3 (36-46) % MCV 92.0 (80-100) fL MCH 30.6 (26-34) PG MCHC 33.2 (30-36) % RDW 14.1 (11.6-14.8) % Plt Count 285 (150-400) X10^3/uL Neut % (Auto) 72.7 (50-75) % Lymph % (Auto) 14.0 L (25-40) % [place] % (Auto) 11.0 (3-14) % Eos % (Auto) 1.6 L (2-4) % Baso % (Auto) 0.7 (0-2) % Neut # (Auto) 4800 (4317-7071) /uL Sodium 140 (137-145) mmol/L Potassium 4.3 (3.4-5.1) mmol/L Chloride 100 (98-107) mmol/L Carbon Dioxide 26 (22-32) mmol/L BUN 17 (7-17) mg/dL Creatinine 0.70 (0.52-1.04) mg/dL Estimated GFR > 60.0 (>60) mL/min BUN/Creatinine Ratio 24.3 H (6-22) Glucose 114 H (80-110) mg/dL Lactate (0.7-2.1) mmol/L Calcium 9.4 (8.4-10.2) mg/dL B-Natriuretic Peptide < 100.0 (<100) Procalcitonin < 0.05 (<0.5) ng/mL Influenza A & B (PCR) (Negative) 05/05/18 05/05/18 Range/Units 08:45 08:45 WBC (4.5-11.0) X10^3/uL RBC (4.0-5.2) X10^6/uL Hgb (12.0-16.0) g/dL Hct (36-46) % MCV (80-100) fL MCH (26-34) PG MCHC (30-36) % RDW (11.6-14.8) % Plt Count (150-400) X10^3/uL Neut % (Auto) (50-75) % Lymph % (Auto) (25-40) % [place] % (Auto) (3-14) % Eos % (Auto) (2-4) % Baso % (Auto) (0-2) % Neut # (Auto) (8056-2880) /uL Sodium (137-145) mmol/L Potassium (3.4-5.1) mmol/L Chloride (98-107) mmol/L Carbon Dioxide (22-32) mmol/L BUN (7-17) mg/dL Creatinine (0.52-1.04) mg/dL Estimated GFR (>60) mL/min BUN/Creatinine Ratio (6-22) Glucose (80-110) mg/dL Lactate 0.8 (0.7-2.1) mmol/L Calcium (8.4-10.2) mg/dL B-Natriuretic Peptide (<100) Procalcitonin (<0.5) ng/mL Influenza A & B (PCR) Negative (Negative) Imaging Data Chest x-ray: Radiologist's impression: [address] [address] XRay Report Signed Patient: Maricarmen Ramires KMR#: [id number] : 1946Acct:[id number] Age/Sex: 72 / FDate of Service: 05/05/18 Loc: ED Accession Number: [id number] Procedure: XR chest 1V Ordering Provider: Aaron Boston D.O. PROCEDURE: XR CHEST 1V INDICATIONS: fever and cough concern for pneumonia TECHNIQUE: One view of the chest was acquired. COMPARISON: [facility], CR, XR CHEST 2V, 03/02/2018, 14:24. [facility], CR, XR CHEST 2V, 02/08/2018, 2:14. FINDINGS: Surgical changes and devices: None. Lungs and pleura: No pleural effusions or pneumothorax. Lungs are clear. Mediastinum: Mediastinal contours appear normal. Heart size is normal. Bones and chest wall: No suspicious bony lesions. Overlying soft tissues appear unremarkable. IMPRESSION: Reduced inspiratory line, mild interstitial prominence previously present, no focal pneumonia found. Dictated by: Joel Gibson M.D. on 05/05/2018 at 10:04 Approved by: Joel Gibson M.D. on 05/05/2018 at 10:05 ECG Data Attestation: I personally reviewed and interpreted this ECG as follows: Prior ECG tracings: not available for review Interpretation: Sinus rhythm ventricular rate 87 left axis deviation normal QRS normal QTC no ST T wave changes MDM Narrative Medical decision making narrative: patient feels much better after the albuterol nebulizer. There is no signs of pneumonia. She is not in any respiratory distress. Patient states that she needs a refill of her albuterol inhaler. She was again asking for refill of her mental health medications. she states that she is yet to establish care with a primary care doctor however she does state that she now has somebody who can watch her son during the day so that she can make it to a doctor's appointment. This is a new development in her social history. A social work consult was placed however they were unable to come to the emergency department while she was here during this visit. the patient's name was passed on to social work during her last visit here in the emergency department. I do not feel that the patient needs to stay here in the emergency department for this consult to take place. Patient was given return precautions. She expressed understanding and agreement plan. I do not feel that there is any indication for antibiotics today Discharge Plan Departure Patient Disposition: Home Clinical Impression: Asthma with exacerbation Instructions: Asthma -- Adult Activity Restrictions/Additional Instructions: I highly recommend that you continue to try to make contact with the primary care doctor to manage her chronic medical conditions. I do recommend that you use her albuterol inhaler as needed. Return to the emergency department for any new or worsening symptoms Prescriptions: New lamotrigine 150 mg tablet 150 mg PO TID Qty: 90 RF: 0 gabapentin 400 mg capsule 400 mg PO TID Qty: 90 RF: 0 venlafaxine 150 mg capsule,extended release 24hr 150 mg PO BID Qty: 60 RF: 0 albuterol sulfate 90 mcg/actuation HFA aerosol inhaler 1 puff INHALATION Q4-6H PRN (Reason: shortness of breath or wheezing) Qty: 18 RF: 0 No Action amlodipine [Norvasc] 5 MG tablet 5 mg PO QDAY Qty: 10 RF: 0 albuterol sulfate [Ventolin HFA] 90 MCG/PUFF HFA aerosol inhaler 2 puff INH Q4HP PRNQty: 1 RF: 0 furosemide 40 MG tablet 40 mg PO QDAY Qty: 0 RF: 0 albuterol sulfate 90 mcg/actuation HFA aerosol inhaler 1 puff INHALATION Q4-6H PRN (Reason: shortness of breath or wheezing) Qty: 6.7 RF: 0 gabapentin 400 mg capsule 400 mg PO TID Qty: 90 RF: 0 lamotrigine [Lamictal] 150 mg tablet 150 mg PO TID Qty: 90 RF: 0 lamotrigine 150 mg tablet 150 mg PO TID Qty: 90 RF: 0 gabapentin 400 mg capsule 400 mg PO TID Qty: 90 RF: 0 levofloxacin [Levaquin] 750 mg tablet 750 mg PO DAILY Qty: 7 RF: 0 venlafaxine 150 mg tablet extended release 24hr 150 mg PO BEDTIME Qty: 60 RF: 0 lamotrigine 150 mg tablet 150 mg PO TID Qty: 90 RF: 0 gabapentin 400 mg capsule 400 mg PO TID Qty: 90 RF: 0 amlodipine 5 mg tablet 5 mg PO DAILY Qty: 30 RF: 0 venlafaxine 150 mg tablet extended release 24hr 300 mg PO DAILY Qty: 60 RF: 0 amlodipine 5 mg tablet 5 mg PO DAILY Qty: 30 RF: 0 albuterol sulfate 90 mcg/actuation HFA aerosol inhaler 1 puff INHALATION Q4-6H PRN (Reason: shortness of breath) Qty: 6.7 RF: 0 venlafaxine 150 mg capsule,extended release 24hr 300 mg PO DAILY Qty: 60 RF: 0 amlodipine 5 mg tablet 5 mg PO DAILY Qty: 30 RF: 0 azithromycin 500 mg tablet See Label Instructions .ROUTE .COMPLEX Qty: 6 RF: 0
[2018-05-05 08:39] VITALS: BP 179/98; PULSE 88; RESP 20; TEMP 36.9; O2SAT 99; BMI 35.2
--- NOTE | 2018-05-05 08:43 | DI.RAD.S_ITS ---
PROCEDURE: XR CHEST 1V INDICATIONS: fever and cough concern for pneumonia TECHNIQUE: One view of the chest was acquired. COMPARISON: [facility], CR, XR CHEST 2V, 03/02/2018, 14:24. [facility], CR, XR CHEST 2V, 02/08/2018, 2:14. FINDINGS: Surgical changes and devices: None. Lungs and pleura: No pleural effusions or pneumothorax. Lungs are clear. Mediastinum: Mediastinal contours appear normal. Heart size is normal. Bones and chest wall: No suspicious bony lesions. Overlying soft tissues appear unremarkable. IMPRESSION: Reduced inspiratory line, mild interstitial prominence previously present, no focal pneumonia found. Dictated by: Joel Gibson M.D. on 05/05/2018 at 10:04 Approved by: Joel Gibson M.D. on 05/05/2018 at 10:05
[2018-05-05 08:58] LABS: Add Manual Diff / Slide Review NO; Basophils Percent Auto 0.7 % (0-2); Eosinophils Percent Auto 1.6 % (2-4); Hematocrit 43.3 % (36-46); Hemoglobin 14.4 g/dL (12.0-16.0); Mean Corpuscular HGB Conc 33.2 % (30-36); Mean Corpuscular Hemoglobin 30.6 PG (26-34); Neutrophils Absolute Auto 4800 /uL (3000-5900); Neutrophils Percent Auto 72.7 % (50-75); Platelet Count 285 X10^3/uL (150-400); Red Blood Cell Count 4.71 X10^6/uL (4.0-5.2); Red Cell Distribution Width 14.1 % (11.6-14.8); White Blood Cell Count 6.7 X10^3/uL (4.5-11.0)
[2018-05-05 09:09] LABS: Lactate (Lactic Acid) 0.8 mmol/L (0.7-2.1)
[2018-05-05] MEDS: DEXAMETHASONE 10 MG/ML VIAL PO (09:09)
[2018-05-05 09:12] LABS: BUN Creatinine Ratio 24.3 (6-22); Blood Urea Nitrogen 17 mg/dL (7-17); Calcium 9.4 mg/dL (8.4-10.2); Carbon Dioxide 26 mmol/L (22-32); Chloride 100 mmol/L (98-107); Estimated Glomerular Filt Rate > 60.0 mL/min (>60); Glucose 114 mg/dL (80-110); HEMOLYSIS < 15 (0-50); Potassium 4.3 mmol/L (3.4-5.1); Sodium 140 mmol/L (137-145)
[2018-05-05 09:13] LABS: Influenza A and B by PCR Rapid Negative (Negative)
[2018-05-05] MEDS: ALBUTEROL/IPRATROPIUM 3 ML AMPUL INH (09:17)
[2018-05-05 09:21] VITALS: PULSE 78; RESP 18; O2SAT 97
[2018-05-05 09:33] LABS: Procalcitonin < 0.05 ng/mL (<0.5)
[2018-05-05 09:52] LABS: B Type Natriuretic Peptide < 100.0 (<100)
[2018-05-05 11:01] VITALS: BP 154/70; PULSE 81; RESP 16; O2SAT 98
== END 2018-05-05 11:03 | disposition home or self-care (01) ==
PROVIDERS: Emergency Provider Emergency Medicine; PCP Family Medicine
DX: J45.901 Unspecified asthma with (acute) exacerbation (principal)
CPT/HCPCS: 36591; 71045; 80048; 83605; 83880; 84145; 85025; 87400; 93005; 93041; 94640; 99283; 99285; J1100

== ENCOUNTER 2018-06-20 09:08 | Inpatient (IN) | payer MEDICARE, MEDICAID, SELFPAY ==
[2018-06-20] VITALS (14 sets, daily range): BP systolic 117–159; BP diastolic 53–77; PULSE 70–92; RESP 16–22; TEMP 36.6–36.8; O2SAT 93–96; BMI 36.6
--- NOTE | 2018-06-20 | DI.ECHO.S_ITS ---
[place] +---------+ Hospital +---------+ : : [address] : : : : [id number] : : : : Phone: [phone] Echocardiogram Report + + :Name: GILMAR BENDER Study Date: 06/21/2018 Height: 60 in : :[facility] Exam Location: [facility] Weight: 200 lb : : Gender: Female BSA: 1.9 m2 : :: 1945 Age: 72 yrs BP: 165/76 mmHg: :Reason For Study: Embolic Focus : :Ordering Physician: [place] : :Hospitalist Performed By: Candis Page : :Referring: CHRISTIANO GARCIA : + + Interpretation Summary The left ventricle is normal in size. The ejection fraction is estimated to be 60-65%. There are no focal wall motion abnormalities. Diastolic parameters suggest probable normal left ventricular diastolic function and normal filling pressures. The right ventricle is normal in size and function. The left atrium is moderately dilated. The right atrium is borderline dilated. There is no significant valvular heart disease. Mild atherosclerotic plaque(s) in the aortic arch. No obvious evidence for embolic source for TIA/CVA. Procedure: A two-dimensional transthoracic echocardiogram with color flow and Doppler was performed. The study quality was technically adequate. There is no prior echocardiogram noted for this patient. The patient was in normal sinus rhythm during the exam. The patient had occasional PVCs during the exam. Left Ventricle: The left ventricle is normal in size. Left ventricular wall thickness is mildly increased. There is no thrombus. The ejection fraction is estimated to be 60-65%. There are no focal wall motion abnormalities. Diastolic parameters suggest probable normal left ventricular diastolic function and normal filling pressures. Right Ventricle: The right ventricle is normal in size and function. Atria: The left atrium is moderately dilated. The right atrium is borderline dilated. There is no Doppler evidence for an interatrial shunt. Mitral Valve: The mitral valve is normal in structure and function. There is trace mitral regurgitation. Aortic Valve: The aortic valve is grossly normal. The aortic valve opens well. There is trace aortic regurgitation. Tricuspid Valve: The tricuspid valve is normal in structure and function. There is trace tricuspid regurgitation. Pulmonic Valve: The pulmonic valve is not well visualized. There is trace pulmonic regurgitation. There is no significant valvular heart disease. Great Vessels: The aortic root is normal size. The ascending aorta is mildly enlarged. Mild atherosclerotic plaque(s) in the aortic arch. The pulmonary is not well visualized. The IVC is dilated (diameter is greater than 2.1 cm) yet it collapses greater than 50% with a sniff. This suggests a right atrial pressure of 8 mm Hg. Pericardium/ Pleura There is no pericardial effusion. There is no pleural effusion. MMode/2D Measurements & Calculations LVIDd: 5.1 cm Ao root diam: 3.0 cm LVIDs: 3.1 cm asc Aorta Diam: 3.6 cm FS: 39.4 % IVSd: 1.1 cm LVPWd: 1.1 cm LV bains. diameter/BSA (cm/m^2): 2.7 LV sys. diameter/BSA (cm/m^2): 1.6 LA A2 area: 26.1 cm2 RA long axis: 5.2 cm LA A4 area: 24.1 cm2 RA area: 19.0 cm2 LA length (vol): 6.2 cm RA vol: 59.1 ml LA vol: 86.1 ml RA : 31.6 ml/m2 LA vol index: 46.1 ml/m2 IVC diam: 2.3 cm RVD1 (basal): 3.4 cm Doppler Measurements & Calculations Ao V2 max: 179.1 cm/sec LVOT Max Mykel: 115.3 cm/sec Ao V2 mean: 124.6 cm/sec LV V1 max P.3 mmHg Ao max P.8 mmHg LV V1 VTI: 22.8 cm Ao mean P.8 mmHg sev ratio: 0.61 Ao V2 VTI: 37.3 cm MV E max mykel: 76.3 cm/sec TR max mykel: 217.4 cm/sec MV A max mykel: 78.4 cm/sec TR max P.9 mmHg MV E/A: 0.97 PA V2 max: 89.1 cm/sec Med Peak E' Mykel: 4.9 cm/sec PA V2 mean: 67.7 cm/sec E/E' med: 15.7 PA mean P.9 mmHg Lat Peak E' Mykel: 7.8 cm/sec E/E' lat: 9.7 E/e' average: 12.7 MV dec time: 0.23 sec MV P1/2t: 68.9 msec MV P1/2t max mykel: 76.5 cm/sec MVA(P1/2t): 3.2 cm2 Reading Physician:CHRISTIANA
--- NOTE | 2018-06-20 | DI.MRI.S_ITS ---
PROCEDURE: MR ANGIO HEAD WO CON INDICATIONS: POSSIBLE STROKE TECHNIQUE: Noncontrast axial 3-D [id number] MR angiogram, with 3-dimensional maximum intensity projection (MIP) reformats of the internal carotid arteries and posterior circulation then performed. COMPARISON: [facility], CT, CT HEAD/BRAIN WO CON, 06/20/2018, 9:05. [facility], MR, MR HEAD/BRAIN WO CON, 06/20/2018, 15:10. FINDINGS: Image quality: Excellent. Anterior circulation: Intracranial internal carotid arteries demonstrate normal size and intraluminal flow signal. The flow within the paired anterior cerebral arteries is normal and symmetric. The flow within the middle cerebral arteries is normal and symmetric. The anterior communicating artery is seen. No stenoses, occlusions, or aneurysms. Posterior circulation: Visualized portions of the vertebral arteries demonstrate normal caliber, and join to form a normal appearing basilar artery. The flow within the posterior cerebral arteries is normal and symmetric. No stenoses, occlusions, or aneurysms. IMPRESSION: No significant intracranial arterial abnormality is seen. Dictated by: Greg Sherman M.D. on 06/20/2018 at 15:27 Approved by: Greg Sherman M.D. on 06/20/2018 at 15:27
--- NOTE | 2018-06-20 09:17 | DI.CT.S_ITS ---
PROCEDURE: CT HEAD/BRAIN WO CON INDICATIONS: right facial droop, cva TECHNIQUE: Noncontrast 4.5 mm thick angled axial sections acquired from the foramen magnum to the vertex, with coronal and sagittal reformats. For radiation dose reduction, the following was used: automated exposure control, adjustment of mA and/or kV according to patient size. COMPARISON: [facility], CT, HEAD WITHOUT CONTRAST, 07/22/2017, 1:06. FINDINGS: Image quality: Excellent. CSF spaces: Basal cisterns are patent. No extra-axial fluid collections. The ventricles are symmetric in size and shape. Brain: No intracranial bleeds or masses. There is cerebral volume loss for age, with resultant ventricular and sulcal prominence. There are periventricular and deep white matter chronic small vessel ischemic changes. There is intracranial internal carotid artery atherosclerosis. Skull and face: Calvarium and visualized facial bones appear intact, without suspicious lesions. Sinuses: Visualized sinuses and mastoids are clear. IMPRESSION: No acute intracranial abnormality. Dictated by: Toro Spivey M.D. on 06/20/2018 at 9:25 Approved by: Toro Spivey M.D. on 06/20/2018 at 9:26
--- NOTE | 2018-06-20 09:21 | DI.RAD.S_ITS ---
PROCEDURE: XR CHEST 1V INDICATIONS: ? facial droop. coughing x 1 month TECHNIQUE: One view of the chest was acquired. COMPARISON: [facility], CT, CT HEAD/BRAIN WO CON, 06/20/2018, 9:05. [facility], CR, XR CHEST 2V, 11/01/2017, 7:09. [facility], CR, XR CHEST 2V, 02/08/2018, 2:14. [facility], CR, XR CHEST 2V, 03/02/2018, 14:24. [facility], CR, XR CHEST 1V, 05/05/2018, 8:52. FINDINGS: Surgical changes and devices: None. Lungs and pleura: No pleural effusions or pneumothorax. Streaky opacity can be seen at the left lung base. Mediastinum: The cardiac contours are within normal limits. The aorta demonstrates calcification and tortuosity. Bones and chest wall: Age-appropriate bony degenerative changes are seen. Mild dextroconvex scoliotic curvature is seen. No suspicious bony lesions. Overlying soft tissues appear unremarkable. IMPRESSION: Likely atelectasis at the left lung base. Differential diagnosis includes mild/early infiltrate, however. Dictated by: Greg Sherman M.D. on 06/20/2018 at 9:05 Approved by: Greg Sherman M.D. on 06/20/2018 at 9:07
[2018-06-20 09:29] LABS: Add Manual Diff / Slide Review NO; Basophils Percent Auto 0.9 % (0-2); Eosinophils Percent Auto 2.3 % (2-4); Hematocrit 42.2 % (36-46); Hemoglobin 14.1 g/dL (12.0-16.0); Lymphocytes Percent Auto 22.4 % (25-40); Mean Corpuscular HGB Conc 33.5 % (30-36); Mean Corpuscular Hemoglobin 31.1 PG (26-34); Monocytes Percent Auto 10.5 % (3-14); Neutrophils Absolute Auto 3800 /uL (1500-7000); Neutrophils Percent Auto 63.9 % (50-75); Platelet Count 279 X10^3/uL (150-400); Red Blood Cell Count 4.54 X10^6/uL (4.0-5.2); Red Cell Distribution Width 14.8 % (11.6-14.8)
[2018-06-20 09:38] LABS: INR 0.8 (0.9-1.3); Prothrombin Time 9.3 SECONDS (10.1-12.7)
[2018-06-20] MEDS: SODIUM CHLORIDE 0.9% 1,000 ML 150 ML IV (09:38)
--- NOTE | 2018-06-20 09:40 | ED.NEUROSD ---
HPI - Neuro Symptoms/Deficit General Chief Complaint: Neuro Symptoms/Deficit Stated Complaint: CVA Time Seen by Provider: 06/20/18 09:09 Source: patient, family (Son) and EMS Mode of arrival: EMS Limitations: no limitations History of Present Illness HPI Narrative: This is a 72-year-old female comes to the emergency department for concern for stroke. Patient an argument with her son. Her son states that she suddenly became confused, did not really seem to make any sense. He did not appreciating slurring or dysarthria. He did not notice any weakness of her upper extremities or lower extremities and states she was sitting and able to stand. He states that she did have some facial droop that was noted by EMS. He was not sure that he appreciated it. He states they have both been out of their medications including her blood pressure as well as psychiatric medications for about 10 days patient states that she also seemed very confused and did not seem right. She states that she did seem to have a facial but just did not make any sense. She did seem to understand was happening. She denies any weakness. She feels like her symptoms have improved significantly here. She states she is very emotional today. She does have a history of stroke in the past. Patient states she has also been sick recently and had a cough that is seems to be in her chest with congestion. No fevers that she is aware of. Related Data Home Medications Medication Instructions Recorded Confirmed amlodipine [Norvasc] 5 mg PO DAILY 06/20/18 06/20/18 clonazepam 2 mg PO DAILY PRN 06/20/18 06/20/18 Previous Rx's Medication Instructions Recorded albuterol sulfate [Ventolin HFA] 2 puff INH Q4HP PRN #1 ea 09/03/17 lamotrigine [Lamictal] 150 mg PO TID #90 tab 01/11/18 gabapentin 400 mg PO TID #90 cap 05/05/18 venlafaxine 150 mg PO BID #60 cap 05/05/18 Allergies Allergy/AdvReac Type Severity Reaction Status Date / Time Penicillins [PENICILLINS] Allergy Unknown Verified 06/20/18 09:27 sulfamethoxazole AdvReac Rash Verified 06/20/18 09:27 [From Bactrim] trimethoprim [From Bactrim] AdvReac Rash Verified 06/20/18 09:27 Review of Systems Review of Systems All systems reviewed & are unremarkable except as noted in HPI and below Constitutional Denies chills, Denies fever(s), Denies headache(s), Denies lethargy and Denies weakness ENT Ears, Nose, Mouth, and Throat: Denies headache(s) Cardiovascular Denies chest pain, Denies syncope, Denies irregular heart rhythm, Denies lightheadedness, Denies dyspnea and Denies dyspnea on exertion Respiratory Reports chest congestion, Reports cough, Denies dyspnea, Denies dyspnea on exertion, Denies stridor and Denies wheezing Gastrointestinal Gastrointestinal: Denies abdominal pain, Denies change in bowel habits, Denies diarrhea, Denies nausea and Denies vomiting Genitourinary Denies urinary frequency and Denies urinary urgency Musculoskeletal Denies muscle weakness, Denies numbness and Denies tingling Neurologic Reports behavioral changes, Reports confusion, Denies syncope, Denies headache(s), Denies focal weakness, Denies numbness, Denies tingling and Denies weakness Psychiatric Reports behavioral changes and Reports confusion Allergic/Immunologic Denies wheezing [facility] Medical History Sinusitis (Acute) Medication refill (Acute) CHF (congestive heart failure) (Acute) UTI (urinary tract infection) (Acute) Asthma exacerbation (Acute) Bronchitis (Inactive) Upper respiratory infection (Inactive) Surgical History No pertinent past surgical history (Acute) Social History household members: children Smoking Status: Current every day smoker alcohol intake: never Exam Narrative Exam Narrative: GEN: well nourished, elderly female, alert and oriented x 3, patient appears to be in moderate distress. Patient is initially tearful but easily redirectable and answers questions well. HEENT: Atraumatic, pupils are equal round reactive to light, extraocular movements are intact, nares are clear, TMs are clear with no fluid, there is no conjunctival pallor. Throat is clear without any exudates, erythema, tonsillar enlargement or uvular deviation, no facial droop. HEART: Regular rate and rhythm without murmur, clicks, rubs. Pulses are equal in upper and lower extremities LUNGS:Lungs coarse bilaterally, no wheezes, rales, crackles, chest moves symmetrically, no tachypnea, no accessory muscle use. Patient has a deep wet sounding cough. ABD:bowel sounds normal, soft, non-tender, no guarding, rebound, rigidity, no masses noted, no hepatosplenomegaly :No CVA tenderness MSCL: Non-tender, no muscle atrophy, muscles strength 5/5 upper and lower extremities, full range of motion, normal gait NEURO:CN 2-12 intact, sensation normal, reflexes 2/4 upper and lower extremities. finger nose finger test normal, heel arteaga test normal Initial Vital Signs Initial Vital Signs: Vital Signs Temperature 98.3 F 06/20/18 09:05 Pulse Rate 92 H 06/20/18 09:05 Respiratory Rate 20 06/20/18 09:05 Blood Pressure 138/72 06/20/18 09:05 Pulse Oximetry 95 06/20/18 09:05 Scores NIH Stroke Scale Level of Conciousness: Alert, keenly responsive Ask month/age: Answers both questions correctly. Open/close eyes, close hand: Performs both tasks correctly Best gaze horizontal: Normal Visual dietz: No visual loss Facial palsy: Normal symetrical movement Left arm drift: No drift for full 10 sec Right arm drift: No drift for full 10 sec Left leg drift: No drift for full 10 sec Right leg drift: No drift for full 10 sec Limb ataxia: Absent Sensory on face/arms/legs: Normal, no sensory loss Best language: No aphasia, normal Dysarthria: Normal Extinction or inattention: No abnormality Total NIH Stroke scale score: 0 Course Orders Ordered: ED Orders 06/20/18 11:15 Urinalysis and Microscopic Stat 06/20/18 13:48 Consult to Discharge Planning Routine Consult to Occupational Therapy Evaluate & Treat Consult to Physical Therapy Evaluate & Treat Consult to Speech Therapy Evaluate & Treat MR head/brain wo con Stat Education, smoking cessation ONGOING 06/20/18 14:15 Hemoglobin A1C % Routine Procalcitonin Routine Thyroid Stimulating Hormone Routine 06/20/18 16:08 Lactate (Lactic Acid) Stat Acetaminophen (Tylenol) 650 mg PO Q6HR PRN PRN Reason: Fever Albuterol (Ventolin Hfa) 2 puff INH RTQ4HR PRN PRN Reason: Shortness Of Breath Amlodipine Besylate (Norvasc) 5 mg PO DAILY VERONICA Last Admin: 06/20/18 15:59 Dose: 5 mg Aspirin (Aspirin Ec) 81 mg PO DAILY [facility] Atorvastatin Calcium (Lipitor) 20 mg PO BEDTIME [facility] Fluticasone Propionate (Flovent Hfa) 2 puff INH RTBID [facility] Gabapentin (Neurontin) 400 mg PO TID [facility] Last Admin: 06/20/18 16:00 Dose: 400 mg Ceftriaxone Sodium/Dextrose (Rocephin) 1 gm in 50 mls @ 100 mls/hr IV Q24H [facility] Azithromycin 500 mg/ Dextrose 250 mls @ 250 mls/hr IV Q24H [facility] Last Admin: 06/20/18 16:44 Dose: 250 mls/hr Labetalol HCl (Trandate) 10 mg IV Q4HR PRN PRN Reason: Hypertension Lamotrigine (Lamictal) 150 mg PO TID [facility] Last Admin: 06/20/18 16:20 Dose: 150 mg Venlafaxine HCl (Effexor Xr) 150 mg PO DAILY [facility] Last Admin: 06/20/18 15:59 Dose: 150 mg Discontinued Medications Budesonide (Pulmicort Flexhaler) 2 puff INH BID [facility] Clonidine HCl (Catapres) 0.2 mg PO NOW ONE Stop: 06/20/18 10:08 Last Admin: 06/20/18 10:08 Dose: 0.2 mg Sodium Chloride (Normal Saline 0.9%) 1,000 mls @ 150 mls/hr IV CONT [facility] Last Infusion: 06/20/18 12:36 Dose: 0 mls/hr Admin: 06/20/18 09:38 Dose: 150 mls/hr Vital Signs - 8 hr 06/20/18 11:00 06/20/18 11:45 06/20/18 12:00 Temperature Pulse Rate 76 81 77 Respiratory Rate 20 17 22 Blood Pressure Blood Pressure [Left Arm] 126/56 L 117/58 L 126/57 L Pulse Oximetry 95 94 96 06/20/18 13:19 06/20/18 15:50 Temperature 98.3 F 98.0 F Pulse Rate 72 73 Respiratory Rate 16 18 Blood Pressure 137/70 151/69 H Blood Pressure [Left Arm] Pulse Oximetry 95 95 MDM - Neuro Symptoms/Deficit Lab Data Attestation: I reviewed the patient's lab results. Result diagrams: 06/20/18 09:18 06/20/18 09:18 Lab Results 06/20/18 06/20/18 06/20/18 Range/Units 09:18 09:18 09:18 WBC 6.0 (4.5-11.0) X10^3/uL RBC 4.54 (4.0-5.2) X10^6/uL Hgb 14.1 (12.0-16.0) g/dL Hct 42.2 (36-46) % MCV 93.0 (80-100) fL MCH 31.1 (26-34) PG MCHC 33.5 (30-36) % RDW 14.8 (11.6-14.8) % Plt Count 279 (150-400) X10^3/uL Neut % (Auto) 63.9 (50-75) % Lymph % (Auto) 22.4 L (25-40) % [place] % (Auto) 10.5 (3-14) % Eos % (Auto) 2.3 (2-4) % Baso % (Auto) 0.9 (0-2) % Neut # (Auto) 3800 (9829-9458) /uL PT 9.3 L (10.1-12.7) SECONDS INR 0.8 L (0.9-1.3) APTT 28 (26.4-36.2) SECONDS Sodium (137-145) mmol/L Potassium (3.4-5.1) mmol/L Chloride (98-107) mmol/L Carbon Dioxide (22-32) mmol/L BUN (7-17) mg/dL Creatinine (0.52-1.04) mg/dL Estimated GFR (>60) mL/min BUN/Creatinine Ratio (6-22) Glucose (80-110) mg/dL Hemoglobin A1c (4.0-6.0) % Lactate (0.7-2.1) mmol/L Calcium (8.4-10.2) mg/dL Troponin I 0.016 (0.01-0.034) ng/mL Procalcitonin (<0.5) ng/mL TSH (0.47-4.68) uIU/mL 06/20/18 06/20/18 06/20/18 Range/Units 09:18 14:15 14:15 WBC (4.5-11.0) X10^3/uL RBC (4.0-5.2) X10^6/uL Hgb (12.0-16.0) g/dL Hct (36-46) % MCV (80-100) fL MCH (26-34) PG MCHC (30-36) % RDW (11.6-14.8) % Plt Count (150-400) X10^3/uL Neut % (Auto) (50-75) % Lymph % (Auto) (25-40) % [place] % (Auto) (3-14) % Eos % (Auto) (2-4) % Baso % (Auto) (0-2) % Neut # (Auto) (3975-2385) /uL PT (10.1-12.7) SECONDS INR (0.9-1.3) APTT (26.4-36.2) SECONDS Sodium 142 (137-145) mmol/L Potassium 4.0 (3.4-5.1) mmol/L Chloride 106 (98-107) mmol/L Carbon Dioxide 22 (22-32) mmol/L BUN 11 (7-17) mg/dL Creatinine 0.70 (0.52-1.04) mg/dL Estimated GFR > 60.0 (>60) mL/min BUN/Creatinine Ratio 15.7 (6-22) Glucose 110 (80-110) mg/dL Hemoglobin A1c 5.3 (4.0-6.0) % Lactate (0.7-2.1) mmol/L Calcium 8.9 (8.4-10.2) mg/dL Troponin I (0.01-0.034) ng/mL Procalcitonin (<0.5) ng/mL TSH 0.52 (0.47-4.68) uIU/mL 06/20/18 06/20/18 Range/Units 14:15 16:08 WBC (4.5-11.0) X10^3/uL RBC (4.0-5.2) X10^6/uL Hgb (12.0-16.0) g/dL Hct (36-46) % MCV (80-100) fL MCH (26-34) PG MCHC (30-36) % RDW (11.6-14.8) % Plt Count (150-400) X10^3/uL Neut % (Auto) (50-75) % Lymph % (Auto) (25-40) % [place] % (Auto) (3-14) % Eos % (Auto) (2-4) % Baso % (Auto) (0-2) % Neut # (Auto) (3544-1522) /uL PT (10.1-12.7) SECONDS INR (0.9-1.3) APTT (26.4-36.2) SECONDS Sodium (137-145) mmol/L Potassium (3.4-5.1) mmol/L Chloride (98-107) mmol/L Carbon Dioxide (22-32) mmol/L BUN (7-17) mg/dL Creatinine (0.52-1.04) mg/dL Estimated GFR (>60) mL/min BUN/Creatinine Ratio (6-22) Glucose (80-110) mg/dL Hemoglobin A1c (4.0-6.0) % Lactate 1.7 (0.7-2.1) mmol/L Calcium (8.4-10.2) mg/dL Troponin I (0.01-0.034) ng/mL Procalcitonin < 0.05 (<0.5) ng/mL TSH (0.47-4.68) uIU/mL Point of Care Testing Glucose POC 91 Urine Dip Bedside Urine Glucose Negative Bedside Urine Bilirubin - Negative Bedside Urine Ketone - Negative Urine Specific [place] 1.010 Bedside Urine Occult Blood +/- Bedside Urine Protein - Negative Bedside Urine Urobilinogen - Negative Bedside Urine Nitrite - Negative Bedside Urine Leukocytes - Negative Esterase Imaging Data CT scan - head: Radiologist's impression: [place] [address] CT Scan Report Signed Patient: Maricarmen Ramires MR#: [id number] : 1945 Acct:[id number] Age/Sex: 72 / F Date of Service: 06/20/18 Loc: ED Accession Number: [id number] Procedure: CT head/brain wo con Ordering Provider: Heidi Augustin D.O. PROCEDURE: CT HEAD/BRAIN WO CON INDICATIONS: right facial droop, cva TECHNIQUE: Noncontrast 4.5 mm thick angled axial sections acquired from the foramen magnum to the vertex, with coronal and sagittal reformats. For radiation dose reduction, the following was used: automated exposure control, adjustment of mA and/or kV according to patient size. COMPARISON: [facility], CT, HEAD WITHOUT CONTRAST, 07/22/2017, 1:06. FINDINGS: Image quality: Excellent. CSF spaces: Basal cisterns are patent. No extra-axial fluid collections. The ventricles are symmetric in size and shape. Brain: No intracranial bleeds or masses. There is cerebral volume loss for age, with resultant ventricular and sulcal prominence. There are periventricular and deep white matter chronic small vessel ischemic changes. There is intracranial internal carotid artery atherosclerosis. Skull and face: Calvarium and visualized facial bones appear intact, without suspicious lesions. Sinuses: Visualized sinuses and mastoids are clear. IMPRESSION: No acute intracranial abnormality. Dictated by: Toro Spivey M.D. on 06/20/2018 at 9:25 Approved by: Toro Spivey M.D. on 06/20/2018 at 9:26 Chest x-ray: Radiologist's impression: [place] [address] XRay Report Signed Patient: Maricarmen Ramires MR#: [id number] : 1945 Acct:[id number] Age/Sex: 72 / F Date of Service: 06/20/18 Loc: ED Accession Number: [id number] Procedure: XR chest 1V Ordering Provider: Heidi Augustin D.O. PROCEDURE: XR CHEST 1V INDICATIONS: ? facial droop. coughing x 1 month TECHNIQUE: One view of the chest was acquired. COMPARISON: [facility], CT, CT HEAD/BRAIN WO CON, 06/20/2018, 9:05. [facility], CR, XR CHEST 2V, 11/01/2017, 7:09. [facility], CR, XR CHEST 2V, 02/08/2018, 2:14. [facility], CR, XR CHEST 2V, 03/02/2018, 14:24. [facility], CR, XR CHEST 1V, 05/05/2018, 8:52. FINDINGS: Surgical changes and devices: None. Lungs and pleura: No pleural effusions or pneumothorax. Streaky opacity can be seen at the left lung base. Mediastinum: The cardiac contours are within normal limits. The aorta demonstrates calcification and tortuosity. Bones and chest wall: Age-appropriate bony degenerative changes are seen. Mild dextroconvex scoliotic curvature is seen. No suspicious bony lesions. Overlying soft tissues appear unremarkable. IMPRESSION: Likely atelectasis at the left lung base. Differential diagnosis includes mild/early infiltrate, however. Dictated by: Greg Sherman M.D. on 06/20/2018 at 9:05 ECG Data Attestation: I personally reviewed and interpreted this ECG as follows: Interpretation: Sinus rhythm close all supraventricular complex. Ventricular rate of 77 P are interval of 158 QRS of 106 QTC of 433. MDM Narrative Medical decision making narrative: Patient's NIH scale is 0, she is not a tPA candidate as her symptoms have resolved. Discussed with patient and her son he did not appreciate her facial droop but EMS did not appreciated here. Patient is feeling much better at this time. We did discuss that this could be part of her complications with her mental health and being off her medications but after further discussion there is potential that it could be a TIA. Discussed with patient and son a plan for observation. Spoke with , patient's head CT is negative, chest x-ray shows possible pneumonia which patient does have a deep wet cough that would be consistent with this. Patient's other lab work does not show any major changes she accepts for observation. Discharge Plan Departure Patient Disposition: Admitted as Observation Clinical Impression: TIA (transient ischemic attack) Discharge Date/Time: 06/20/18 12:42 Interventions: ED Discharge Assessment Last Done: 06/20/18 12:40 Admit Date/Time: 06/20/18 12:03 Admit Provider: Anu Bell
[2018-06-20 09:41] LABS: PTT Partial Thromboplastin Tim 28 SECONDS (26.4-36.2)
[2018-06-20 09:54] LABS: Troponin I 0.016 ng/mL (0.01-0.034)
--- NOTE | 2018-06-20 10:02 | ED_ITS ---
HPI - Neuro Symptoms/Deficit General Chief Complaint: Neuro Symptoms/Deficit Stated Complaint: CVA Time Seen by Provider: 06/20/18 09:09 Source: patient, family (Son) and EMS Mode of arrival: EMS Limitations: no limitations History of Present Illness HPI Narrative: This is a 72-year-old female comes to the emergency department for concern for stroke. Patient an argument with her son. Her son states that she suddenly became confused, did not really seem to make any sense. He did not appreciating slurring or dysarthria. He did not notice any weakness of her upper extremities or lower extremities and states she was sitting and able to stand. He states that she did have some facial droop that was noted by EMS. He was not sure that he appreciated it. He states they have both been out of their medications including her blood pressure as well as psychiatric medications for about 10 days patient states that she also seemed very confused and did not seem right. She states that she did seem to have a facial but just did not make any sense. She did seem to understand was happening. She denies any weakness. She feels like her symptoms have improved significantly here. She states she is very emotional today. She does have a history of stroke in the past. Patient states she has also been sick recently and had a cough that is seems to be in her chest with congestion. No fevers that she is aware of. Related Data Home Medications Medication Instructions Recorded Confirmed amlodipine [Norvasc] 5 mg PO DAILY 06/20/18 06/20/18 clonazepam 2 mg PO DAILY PRN 06/20/18 06/20/18 Previous Rx's Medication Instructions Recorded albuterol sulfate [Ventolin HFA] 2 puff INH Q4HP PRN #1 ea 09/03/17 lamotrigine [Lamictal] 150 mg PO TID #90 tab 01/11/18 gabapentin 400 mg PO TID #90 cap 05/05/18 venlafaxine 150 mg PO BID #60 cap 05/05/18 Allergies Allergy/AdvReac Type Severity Reaction Status Date / Time Penicillins [PENICILLINS] Allergy Unknown Verified 06/20/18 09:27 sulfamethoxazole AdvReac Rash Verified 06/20/18 09:27 [From Bactrim] trimethoprim [From Bactrim] AdvReac Rash Verified 06/20/18 09:27 Review of Systems Review of Systems All systems reviewed & are unremarkable except as noted in HPI and below Constitutional Denies chills, Denies fever(s), Denies headache(s), Denies lethargy and Denies weakness ENT Ears, Nose, Mouth, and Throat: Denies headache(s) Cardiovascular Denies chest pain, Denies syncope, Denies irregular heart rhythm, Denies lightheadedness, Denies dyspnea and Denies dyspnea on exertion Respiratory Reports chest congestion, Reports cough, Denies dyspnea, Denies dyspnea on exertion, Denies stridor and Denies wheezing Gastrointestinal Gastrointestinal: Denies abdominal pain, Denies change in bowel habits, Denies diarrhea, Denies nausea and Denies vomiting Genitourinary Denies urinary frequency and Denies urinary urgency Musculoskeletal Denies muscle weakness, Denies numbness and Denies tingling Neurologic Reports behavioral changes, Reports confusion, Denies syncope, Denies headache(s ), Denies focal weakness, Denies numbness, Denies tingling and Denies weakness Psychiatric Reports behavioral changes and Reports confusion Allergic/Immunologic Denies wheezing [facility] Medical History Sinusitis (Acute) Medication refill (Acute) CHF (congestive heart failure) (Acute) UTI (urinary tract infection) (Acute) Asthma exacerbation (Acute) Bronchitis (Inactive) Upper respiratory infection (Inactive) Surgical History No pertinent past surgical history (Acute) Social History household members: children Smoking Status: Current every day smoker alcohol intake: never Exam Narrative Exam Narrative: GEN: well nourished, elderly female, alert and oriented x 3, patient appears to be in moderate distress. Patient is initially tearful but easily redirectable and answers questions well. HEENT: Atraumatic, pupils are equal round reactive to light, extraocular movements are intact, nares are clear, TMs are clear with no fluid, there is no conjunctival pallor. Throat is clear without any exudates, erythema, tonsillar enlargement or uvular deviation, no facial droop. HEART: Regular rate and rhythm without murmur, clicks, rubs. Pulses are equal in upper and lower extremities LUNGS:Lungs coarse bilaterally, no wheezes, rales, crackles, chest moves symmetrically, no tachypnea, no accessory muscle use. Patient has a deep wet sounding cough. ABD:bowel sounds normal, soft, non-tender, no guarding, rebound, rigidity, no masses noted, no hepatosplenomegaly :No CVA tenderness MSCL: Non-tender, no muscle atrophy, muscles strength 5/5 upper and lower extremities, full range of motion, normal gait NEURO:CN 2-12 intact, sensation normal, reflexes 2/4 upper and lower extremities. finger nose finger test normal, heel arteaga test normal Initial Vital Signs Initial Vital Signs: Vital Signs Temperature 98.3 F 06/20/18 09:05 Pulse Rate 92 H 06/20/18 09:05 Respiratory Rate 20 06/20/18 09:05 Blood Pressure 138/72 06/20/18 09:05 Pulse Oximetry 95 06/20/18 09:05 Scores NIH Stroke Scale Level of Conciousness: Alert, keenly responsive Ask month/age: Answers both questions correctly. Open/close eyes, close hand: Performs both tasks correctly Best gaze horizontal: Normal Visual dietz: No visual loss Facial palsy: Normal symetrical movement Left arm drift: No drift for full 10 sec Right arm drift: No drift for full 10 sec Left leg drift: No drift for full 10 sec Right leg drift: No drift for full 10 sec Limb ataxia: Absent Sensory on face/arms/legs: Normal, no sensory loss Best language: No aphasia, normal Dysarthria: Normal Extinction or inattention: No abnormality Total NIH Stroke scale score: 0 Course Orders Ordered: ED Orders 06/20/18 11:15 Urinalysis and Microscopic Stat 06/20/18 13:48 Consult to Discharge Planning Routine Consult to Occupational Therapy Evaluate & Treat Consult to Physical Therapy Evaluate & Treat Consult to Speech Therapy Evaluate & Treat MR head/brain wo con Stat Education, smoking cessation ONGOING 06/20/18 14:15 Hemoglobin A1C % Routine Procalcitonin Routine Thyroid Stimulating Hormone Routine 06/20/18 16:08 Lactate (Lactic Acid) Stat Acetaminophen (Tylenol) 650 mg PO Q6HR PRN PRN Reason: Fever Albuterol (Ventolin Hfa) 2 puff INH RTQ4HR PRN PRN Reason: Shortness Of Breath Amlodipine Besylate (Norvasc) 5 mg PO DAILY [facility]ONICA Last Admin: 06/20/18 15:59 Dose: 5 mg Aspirin (Aspirin Ec) 81 mg PO DAILY [facility] Atorvastatin Calcium (Lipitor) 20 mg PO BEDTIME [facility] Fluticasone Propionate (Flovent Hfa) 2 puff INH RTBID [facility] Gabapentin (Neurontin) 400 mg PO TID [facility] Last Admin: 06/20/18 16:00 Dose: 400 mg Ceftriaxone Sodium/Dextrose (Rocephin) 1 gm in 50 mls @ 100 mls/hr IV Q24H [facility] Azithromycin 500 mg/ Dextrose 250 mls @ 250 mls/hr IV Q24H [facility] Last Admin: 06/20/18 16:44 Dose: 250 mls/hr Labetalol HCl (Trandate) 10 mg IV Q4HR PRN PRN Reason: Hypertension Lamotrigine (Lamictal) 150 mg PO TID [facility] Last Admin: 06/20/18 16:20 Dose: 150 mg Venlafaxine HCl (Effexor Xr) 150 mg PO DAILY [facility] Last Admin: 06/20/18 15:59 Dose: 150 mg Discontinued Medications Budesonide (Pulmicort Flexhaler) 2 puff INH BID [facility] Clonidine HCl (Catapres) 0.2 mg PO NOW ONE Stop: 06/20/18 10:08 Last Admin: 06/20/18 10:08 Dose: 0.2 mg Sodium Chloride (Normal Saline 0.9%) 1,000 mls @ 150 mls/hr IV CONT [facility] Last Infusion: 06/20/18 12:36 Dose: 0 mls/hr Admin: 06/20/18 09:38 Dose: 150 mls/hr Vital Signs - 8 hr 06/20/18 11:00 06/20/18 11:45 06/20/18 12:00 Temperature Pulse Rate 76 81 77 Respiratory Rate 20 17 22 Blood Pressure Blood Pressure [Left Arm] 126/56 L 117/58 L 126/57 L Pulse Oximetry 95 94 96 06/20/18 13:19 06/20/18 15:50 Temperature 98.3 F 98.0 F Pulse Rate 72 73 Respiratory Rate 16 18 Blood Pressure 137/70 151/69 H Blood Pressure [Left Arm] Pulse Oximetry 95 95 MDM - Neuro Symptoms/Deficit Lab Data Attestation: I reviewed the patient's lab results. Result diagrams: 06/20/18 09:18 06/20/18 09:18 Lab Results 06/20/18 06/20/18 06/20/18 Range/Units 09:18 09:18 09:18 WBC 6.0 (4.5-11.0) X10^3/uL RBC 4.54 (4.0-5.2) X10^6/uL Hgb 14.1 (12.0-16.0) g/dL Hct 42.2 (36-46) % MCV 93.0 (80-100) fL MCH 31.1 (26-34) PG MCHC 33.5 (30-36) % RDW 14.8 (11.6-14.8) % Plt Count 279 (150-400) X10^3/uL Neut % (Auto) 63.9 (50-75) % Lymph % (Auto) 22.4 L (25-40) % [place] % (Auto) 10.5 (3-14) % Eos % (Auto) 2.3 (2-4) % Baso % (Auto) 0.9 (0-2) % Neut # (Auto) 3800 (3011-2778) /uL PT 9.3 L (10.1-12.7) SECONDS INR 0.8 L (0.9-1.3) APTT 28 (26.4-36.2) SECONDS Sodium (137-145) mmol/L Potassium (3.4-5.1) mmol/L Chloride (98-107) mmol/L Carbon Dioxide (22-32) mmol/L BUN (7-17) mg/dL Creatinine (0.52-1.04) mg/dL Estimated GFR (>60) mL/min BUN/Creatinine Ratio (6-22) Glucose (80-110) mg/dL Hemoglobin A1c (4.0-6.0) % Lactate (0.7-2.1) mmol/L Calcium (8.4-10.2) mg/dL Troponin I 0.016 (0.01-0.034) ng/mL Procalcitonin (<0.5) ng/mL TSH (0.47-4.68) uIU/mL 06/20/18 06/20/18 06/20/18 Range/Units 09:18 14:15 14:15 WBC (4.5-11.0) X10^3/uL RBC (4.0-5.2) X10^6/uL Hgb (12.0-16.0) g/dL Hct (36-46) % MCV (80-100) fL MCH (26-34) PG MCHC (30-36) % RDW (11.6-14.8) % Plt Count (150-400) X10^3/uL Neut % (Auto) (50-75) % Lymph % (Auto) (25-40) % Bollinger % (Auto) (3-14) % Eos % (Auto) (2-4) % Baso % (Auto) (0-2) % Neut # (Auto) (2017-5588) /uL PT (10.1-12.7) SECONDS INR (0.9-1.3) APTT (26.4-36.2) SECONDS Sodium 142 (137-145) mmol/L Potassium 4.0 (3.4-5.1) mmol/L Chloride 106 (98-107) mmol/L Carbon Dioxide 22 (22-32) mmol/L BUN 11 (7-17) mg/dL Creatinine 0.70 (0.52-1.04) mg/dL Estimated GFR > 60.0 (>60) mL/min BUN/Creatinine Ratio 15.7 (6-22) Glucose 110 (80-110) mg/dL Hemoglobin A1c 5.3 (4.0-6.0) % Lactate (0.7-2.1) mmol/L Calcium 8.9 (8.4-10.2) mg/dL Troponin I (0.01-0.034) ng/mL Procalcitonin (<0.5) ng/mL TSH 0.52 (0.47-4.68) uIU/mL 06/20/18 06/20/18 Range/Units 14:15 16:08 WBC (4.5-11.0) X10^3/uL RBC (4.0-5.2) X10^6/uL Hgb (12.0-16.0) g/dL Hct (36-46) % MCV (80-100) fL MCH (26-34) PG MCHC (30-36) % RDW (11.6-14.8) % Plt Count (150-400) X10^3/uL Neut % (Auto) (50-75) % Lymph % (Auto) (25-40) % Bollinger % (Auto) (3-14) % Eos % (Auto) (2-4) % Baso % (Auto) (0-2) % Neut # (Auto) (0858-3393) /uL PT (10.1-12.7) SECONDS INR (0.9-1.3) APTT (26.4-36.2) SECONDS Sodium (137-145) mmol/L Potassium (3.4-5.1) mmol/L Chloride (98-107) mmol/L Carbon Dioxide (22-32) mmol/L BUN (7-17) mg/dL Creatinine (0.52-1.04) mg/dL Estimated GFR (>60) mL/min BUN/Creatinine Ratio (6-22) Glucose (80-110) mg/dL Hemoglobin A1c (4.0-6.0) % Lactate 1.7 (0.7-2.1) mmol/L Calcium (8.4-10.2) mg/dL Troponin I (0.01-0.034) ng/mL Procalcitonin < 0.05 (<0.5) ng/mL TSH (0.47-4.68) uIU/mL Point of Care Testing Glucose POC 91 Urine Dip Bedside Urine Glucose Negative Bedside Urine Bilirubin - Negative Bedside Urine Ketone - Negative Urine Specific [place] 1.010 Bedside Urine Occult Blood +/- Bedside Urine Protein - Negative Bedside Urine Urobilinogen - Negative Bedside Urine Nitrite - Negative Bedside Urine Leukocytes - Negative Esterase Imaging Data CT scan - head: Radiologist's impression: [place] [address] CT Scan Report Signed Patient: Maricarmen Ramires MR#: [id number] : 1945 Acct:[id number] Age/Sex: 72 / F Date of Service: 06/20/18 Loc: ED Accession Number: [id number] Procedure: CT head/brain wo con Ordering Provider: Heidi Augustin D.O. PROCEDURE: CT HEAD/BRAIN WO CON INDICATIONS: right facial droop, cva TECHNIQUE: Noncontrast 4.5 mm thick angled axial sections acquired from the foramen magnum to the vertex, with coronal and sagittal reformats. For radiation dose reduction, the following was used: automated exposure control, adjustment of mA and/or kV according to patient size. COMPARISON: [facility], CT, HEAD WITHOUT CONTRAST, 07/22/2017, 1:06. FINDINGS: Image quality: Excellent. CSF spaces: Basal cisterns are patent. No extra-axial fluid collections. The ventricles are symmetric in size and shape. Brain: No intracranial bleeds or masses. There is cerebral volume loss for age , with resultant ventricular and sulcal prominence. There are periventricular and deep white matter chronic small vessel ischemic changes. There is intracranial internal carotid artery atherosclerosis. Skull and face: Calvarium and visualized facial bones appear intact, without suspicious lesions. Sinuses: Visualized sinuses and mastoids are clear. IMPRESSION: No acute intracranial abnormality. Dictated by: Toro Spivey M.D. on 06/20/2018 at 9:25 Approved by: Toro Spivey M.D. on 06/20/2018 at 9:26 Chest x-ray: Radiologist's impression: [place] [address] XRay Report Signed Patient: Maricarmen Ramires MR#: [id number] : 1945 Acct:[id number] Age/Sex: 72 / F Date of Service: 06/20/18 Loc: ED Accession Number: [id number] Procedure: XR chest 1V Ordering Provider: Heidi Augustin D.O. PROCEDURE: XR CHEST 1V INDICATIONS: ? facial droop. coughing x 1 month TECHNIQUE: One view of the chest was acquired. COMPARISON: [facility], CT, CT HEAD/BRAIN WO CON, 06/20/2018, 9:05. [facility], CR, XR CHEST 2V, 11/01/2017, 7:09. [facility], CR, XR CHEST 2V, , 2:14. [facility], CR, XR CHEST 2V, 03/02/2018, 14:24. [facility], CR , XR CHEST 1V, 05/05/2018, 8:52. FINDINGS: Surgical changes and devices: None. Lungs and pleura: No pleural effusions or pneumothorax. Streaky opacity can be seen at the left lung base. Mediastinum: The cardiac contours are within normal limits. The aorta demonstrates calcification and tortuosity. Bones and chest wall: Age-appropriate bony degenerative changes are seen. Mild dextroconvex scoliotic curvature is seen. No suspicious bony lesions. Overlying soft tissues appear unremarkable. IMPRESSION: Likely atelectasis at the left lung base. Differential diagnosis includes mild/early infiltrate, however. Dictated by: Greg Sherman M.D. on 06/20/2018 at 9:05 ECG Data Attestation: I personally reviewed and interpreted this ECG as follows: Interpretation: Sinus rhythm close all supraventricular complex. Ventricular rate of 77 P are interval of 158 QRS of 106 QTC of 433. MDM Narrative Medical decision making narrative: Patient's NIH scale is 0, she is not a tPA candidate as her symptoms have resolved. Discussed with patient and her son he did not appreciate her facial droop but EMS did not appreciated here. Patient is feeling much better at this time. We did discuss that this could be part of her complications with her mental health and being off her medications but after further discussion there is potential that it could be a TIA. Discussed with patient and son a plan for observation. Spoke with , patient's head CT is negative, chest x-ray shows possible pneumonia which patient does have a deep wet cough that would be consistent with this. Patient's other lab work does not show any major changes she accepts for observation. Discharge Plan Departure Patient Disposition: Admitted as Observation Clinical Impression: TIA (transient ischemic attack) Discharge Date/Time: 06/20/18 12:42 Interventions: ED Discharge Assessment Last Done: 06/20/18 12:40 Admit Date/Time: 06/20/18 12:03 Admit Provider: Anu Bell
[2018-06-20] MEDS: cloNIDine 0.1 MG TABLET 0.2 MG PO (10:08)
[2018-06-20 10:22] LABS: BUN Creatinine Ratio 15.7 (6-22); Blood Urea Nitrogen 11 mg/dL (7-17); Calcium 8.9 mg/dL (8.4-10.2); Carbon Dioxide 22 mmol/L (22-32); Chloride 106 mmol/L (98-107); Estimated Glomerular Filt Rate > 60.0 mL/min (>60); Glucose 110 mg/dL (80-110); HEMOLYSIS 16 (0-50); Sodium 142 mmol/L (137-145)
--- NOTE | 2018-06-20 12:30 | PC.NURSE ---
Pt verbalized concern about being admitted stating I have to take care of my son. Son also has mental health 'problems', is morbidly obese and has difficulty walking. Uses cane or wheel chair. Son is at bedside, a/o x3. Both are heavy smokers and are currently living in a hotel w/ tenuous access to food, medications and basic adl supplies. Son states I'll just stay with you. Informed that this was not possible as his mother was going to be a patient and as such could not be a caregiver. Both became upset. Reassured pt that ER would evaluate son for medication refills (both have been out of meds x 10 days +) and would get a cab back to hotel for him. She agreed with this plan and requests to see social work upon admission to . Both son and pt verbalized understanding that pt could not be a caregiver here and that son's presence in her room overnight would be a source of stress for her and therefore not recommended.
--- NOTE | 2018-06-20 13:37 | PC.NURSE ---
Pt admitted for r/o cva/tia. She is A&ox3, denies pain. O facial droop noted, Pt able to take a shower before getting into bed. Ambulates with a fww and is steady on her feet. She has a healing bruised area under her l.eye. pt has a bruise to her buttocks but rest of skin wnl. She is visiting with her son at this time. Pt is a 1/2 pack smoker a day. Her lungs sounds are with wheezes, she has a productive cough of yellow sputum. Has not taken her bipolar meds in a few days. into see patient and she is working on meds for patient and a diet. Son tends to get patient anxious, he will be going home later today. Apparently family lives in a hotel and are close to being homeless. She is calm at this time.
--- NOTE | 2018-06-20 13:48 | DI.MRI.S_ITS ---
PROCEDURE: MR HEAD/BRAIN WO CON INDICATIONS: r/o stroke TECHNIQUE: Noncontrast sagittal and axial FLAIR, axial T1, T2, and gradient echo sequences. Coronal T2 sequences of the brain. Diffusion weighted imaging could not be performed secondary to patient tolerance factors COMPARISON: [facility], CT, CT HEAD/BRAIN WO CON, 06/20/2018, 9:05. FINDINGS: Image quality: Excellent. CSF spaces: Ventricles appear symmetric in size and shape. Basal cisterns are patent. No extra-axial fluid collections. Brain: No intracranial bleeds or mass effects. There is cerebral volume loss for age. There are periventricular and deep white matter chronic small vessel ischemic changes. Brainstem appears normal. No chronic ischemic insults. Normal intravascular flow voids are present. Skull and face: Calvarial bone marrow is normal in signal. Orbits are normal. Sinuses: Mild bilateral maxillary sinus mucosal thickening. Bilateral maxillary sinus retention cysts. IMPRESSION: 1. Limited examination demonstrating no acute process. Bilateral maxillary sinus disease. Dictated by: Toro Spivey M.D. on 06/20/2018 at 15:45 Approved by: Toro Spivey M.D. on 06/20/2018 at 15:47
--- NOTE | 2018-06-20 14:12 | P.HP_ITS ---
History of Present Illness Date Patient Seen: 06/20/18 Chief complaint: CVA Narrative: The patient is a 72-year-old female with history of hypertension, asthma, TIA, depression who presents with concerns regarding a TIA. The patient and her son were in an argument. During the argument the patient was unable to speak. She states she had slurred speech and difficulty with word finding. She reports some facial droop. She reports a headache that has been present for about 1 week. She was somewhat confused and unable to articulate what she was trying to say. The patient had no associated weakness of her arms or legs, no numbness or tingling, no loss of consciousness, there was no tonic- clonic activity, no loss of continence. The patient presented to the emergency department for evaluation. At that point her speech was back to normal. She underwent a head CT which was negative. Patient is admitted to the hospital at this time for evaluation of a possible TIA. Patient has had a cough for the past month. She is a smoker. She has had no fever. Her cough has been productive with yellow phlegm. She also reports some shortness of breath and wheezing. She has no chest pain. She has had some nausea. No vomiting. She denies any hematemesis melena, bright red blood per rectum. Patient has no dysuria hematuria or pyuria. Patient reports she has gained about 30 lb over the past several months. She has had no fever or chills. Patient denies any joint pains or rashes. Patient History Medical History Sinusitis (Acute) Medication refill (Acute) CHF (congestive heart failure) (Acute) UTI (urinary tract infection) (Acute) Asthma exacerbation (Acute) Bronchitis (Inactive) Upper respiratory infection (Inactive) Surgical History No pertinent past surgical history (Acute) Family & Social History Family History: Reviewed 04/01/18 by Aaron Boston DO Safety & Behavioral: Feels Safe in Current Yes Environment Been Physically Hurt or No Threatened By a Person Tobacco & Substance use: Smoking Status Current every day smoker alcohol intake frequency holiday/special occasion Substance Use Type does not use Meds Home Medications Medication Instructions Recorded Confirmed Type albuterol sulfate [Ventolin HFA] 2 puff INH Q4HP PRN #1 ea 09/03/17 06/20/18 Rx lamotrigine [Lamictal] 150 mg PO TID #90 tab 01/11/18 06/20/18 Rx gabapentin 400 mg PO TID #90 cap 05/05/18 06/20/18 Rx venlafaxine 150 mg PO BID #60 cap 05/05/18 06/20/18 Rx amlodipine [Norvasc] 5 mg PO DAILY 06/20/18 06/20/18 History clonazepam 2 mg PO DAILY PRN 06/20/18 06/20/18 History Allergies Allergy/AdvReac Type Severity Reaction Status Date / Time Penicillins [PENICILLINS] Allergy Unknown Verified 06/20/18 09:27 sulfamethoxazole AdvReac Rash Verified 06/20/18 09:27 [From Bactrim] trimethoprim [From Bactrim] AdvReac Rash Verified 06/20/18 09:27 Review of Systems Review of Systems All systems reviewed & are unremarkable except as noted in HPI and below Exam Vital Signs (past 8 hours): - 06/20/18 09:05 06/20/18 09:30 06/20/18 10:00 Temperature 98.3 F Pulse Rate 92 H 78 80 Respiratory Rate 20 20 22 Blood Pressure 138/72 Blood Pressure [Left Arm] 134/56 L 123/53 L Pulse Oximetry 95 96 96 06/20/18 10:08 06/20/18 10:30 06/20/18 10:31 Temperature Pulse Rate 70 77 Respiratory Rate 20 18 Blood Pressure 123/53 L Blood Pressure [Left Arm] 121/65 Pulse Oximetry 94 06/20/18 11:00 06/20/18 11:45 06/20/18 12:00 Temperature Pulse Rate 76 81 77 Respiratory Rate 20 17 22 Blood Pressure Blood Pressure [Left Arm] 126/56 L 117/58 L 126/57 L Pulse Oximetry 95 94 96 06/20/18 13:19 Temperature 98.3 F Pulse Rate 72 Respiratory Rate 16 Blood Pressure 137/70 Blood Pressure [Left Arm] Pulse Oximetry 95 Oxygen Delivery Method Room Air Narrative Exam Narrative: Pleasant female resting comfortably in no obvious distress HEENT: Normocephalic atraumatic, extraocular muscles are intact, sclerae anicteric Neck: Supple, no adenopathy, no carotid bruits, no appreciable thyromegaly Lungs: Decreased breath sounds, occasional crackles Cardiac exam: Regular rate and rhythm normal S1 and S2 with occasional abnormal be Abdomen: Soft nontender nondistended without hepatosplenomegaly no board-like rigidity no palpable mass Extremities: No edema Neuro exam: Patient is awake alert and appropriate she answers questions appropriately, speech is fluent Cranial nerves: Cranial nerves 2-12 are intact Strength: Symmetric and equal in the upper and lower extremity Sensation: No gross abnormality Reflexes: Brisk and equal bilaterally Pronator drift on the left Gait is not assessed Objective Labs Result Diagrams: 06/20/18 09:18 06/20/18 09:18 Labs: Laboratory Results - last 24 hr 06/20/18 06/20/18 06/20/18 09:18 09:18 09:18 WBC 6.0 RBC 4.54 Hgb 14.1 Hct 42.2 MCV 93.0 MCH 31.1 MCHC 33.5 RDW 14.8 Plt Count 279 Neut % (Auto) 63.9 Lymph % (Auto) 22.4 L [place] % (Auto) 10.5 Eos % (Auto) 2.3 Baso % (Auto) 0.9 Neut # (Auto) 3800 PT 9.3 L INR 0.8 L APTT 28 Sodium Potassium Chloride Carbon Dioxide BUN Creatinine Estimated GFR BUN/Creatinine Ratio Glucose Calcium Troponin I 0.016 06/20/18 09:18 WBC RBC Hgb Hct MCV MCH MCHC RDW Plt Count Neut % (Auto) Lymph % (Auto) [place] % (Auto) Eos % (Auto) Baso % (Auto) Neut # (Auto) PT INR APTT Sodium 142 Potassium 4.0 Chloride 106 Carbon Dioxide 22 BUN 11 Creatinine 0.70 Estimated GFR > 60.0 BUN/Creatinine Ratio 15.7 Glucose 110 Calcium 8.9 Troponin I Assessment & Plan (1) TIA (transient ischemic attack): Problem details: Will obtain an MRI of the brain and MRI of the neck. Will obtain a cardiac echo to rule out embolic focus. Will obtain a fasting lipid profile. Will continue her aspirin. Will continue her amlodipine for blood pressure. Current visit: Yes Status: Acute (2) Hypertension: Problem details: Continue amlodipine Current visit: Yes Status: Acute (3) Depression: Problem details: Will continue her usual FX or Current visit: Yes Status: Acute (4) Other specified episodic mood disorder: Problem details: Will continue Lamictal and gabapentin Current visit: Yes Status: Acute (5) Asthma exacerbation: Problem details: Will continue albuterol inhaler. Will add a Flovent inhaler as well. Current visit: No Status: Acute (6) Acute bronchitis: Problem details: Will check influenza a and B, RSV and consider antibiotics if negative Current visit: Yes Status: Acute
[2018-06-20 14:55] LABS: Hemoglobin A1C% w Est Avg Glu 5.3 % (4.0-6.0)
--- NOTE | 2018-06-20 14:56 | ST.IPSCREEN ---
Swallow and speech screen completed. Patient was seen eating a salad in her room with son present. Patient, her son and nursing staff deny any difficulty or observed changes in swallowing or speech; therefore, d/c speech consult orders. Re-consult as needed.
[2018-06-20 15:15] LABS: Thyroid Stimulating Hormone 0.52 uIU/mL (0.47-4.68)
--- NOTE | 2018-06-20 15:35 | PT.IIE ---
Current Diagnoses Major depressive disorder, single episode, unspecified (06/20/18) Unspecified mood [affective] disorder (06/20/18) Transient cerebral ischemic attack, unspecified (06/20/18) Essential (primary) hypertension (06/20/18) Acute bronchitis, unspecified (06/20/18) Unspecified asthma with (acute) exacerbation (06/20/18) Surgical History (Last Reviewed 06/20/18 @ 14:04 by Anu Bell MD) No pertinent past surgical history (Acute) Medical History (Last Reviewed 06/20/18 @ 14:04 by Anu Bell MD) Sinusitis (Acute) Medication refill (Acute) CHF (congestive heart failure) (Acute) UTI (urinary tract infection) (Acute) Asthma exacerbation (Acute) Bronchitis (Inactive) Upper respiratory infection (Inactive) Physical Therapy Inpatient Evaluation/Re-Eval M1 PT/OT-IP Prior Functional Status Start: 06/20/18 16:36 Freq: NEEDED Status: Active Protocol: Document 06/20/18 15:35 AB (Rec: 06/20/18 16:56 AB [id number]) Medical Review Prior Functional Status Medical History Reviewed Yes Communication able to make needs known Mobility and Gait pt stated that she is modified independent with all mobilties and ambulation using SPC indoors and outdoors but occasionally ambulates without AD indoors but tends to furniture cruise. Social History Household Members children Number of Floors (Floors) One Floor Number of Stairs To Enter/Railing? pt stated that they live on a motel; no steps to enter Home Environment Standard Height Toilet Tub/Shower Home Equipment Straight Cane M2 PT-IP Current Condition Start: 06/20/18 16:36 Freq: NEEDED Status: Active Protocol: Document 06/20/18 15:35 AB (Rec: 06/20/18 16:56 AB [id number]) Physical Therapy Current Condition Current Condition Evaluation Date 06/20/18 Treatment Diagnosis TIA; difficulty in walking Onset Date 06/20/18 M3 PT-IP Subjective Start: 06/20/18 16:36 Freq: NEEDED Status: Active Protocol: Document 06/20/18 15:35 AB (Rec: 06/20/18 16:56 AB [id number]) Subjective Physical Therapy Visit Type Type Initial Evaluation Visit Start Time 15:35 Visit Stop Time 15:55 Total Visit Minutes 20 Notes [address] TEAM MEMBER Visits 0 Physical Therapy Visit Comments Patient Comments pt agreeable to do PT Therapy Pain Assessment Pain Present Pain Present Denied Pain M4 PT-IP Mobility and Gait Start: 06/20/18 16:36 Freq: NEEDED Status: Active Protocol: Document 06/20/18 15:35 AB (Rec: 06/20/18 16:56 AB [id number]) PT-Bed Mobility Assessment Supine to Sit Supine to Sit Independent Sit to Supine Sit to Supine Independent Scooting Scooting to Edge of Bed Standby Assistance PT-Transfer Assessment Sit to and From Stand Sit to and from Stand Standby Assistance Equipment Transfer Assistive Device None Gait Belt Straight Cane Orthotic/Prosthetic Devices or Brace: No Gait Assessment Gait Gait Assistance Required: Standby Assistance Contact Guard Assist 1 Person Assist Distance (Feet) 30 Able to Maintain Weight Bearing Status Yes During Gait Assistive Devices Assistive Device None Gait Belt Straight Cane Orthotic/Prosthetic Devices or Brace: No Gait Deviations General Gait Pattern Antalgic Decreased Stride Length Decreased Feet Clearance Factors Limiting Gait Function Factors Limiting Gait Function Decreased Activity Tolerance Poor Balance Poor Safety Awareness Respiratory Distress Comments Gait Comments O2 sat: maintained at 92% during PT session. Pt completed ambulation initially without AD CGA ~ 20 ft but tends to hold on to wall/chair. pt with (+) LOB but able to catch self with holding on to wall. pt completed ambulation using SPC SBA to CGA ~ 30 ft. PT-Balance Assessment Sitting Balance and Reactions Static Sitting Balance Ability Good Dynamic Sitting Balance Ability Good Standing Balance and Reactions Static Standing Balance Ability Good Dynamic Standing Balance Ability Fair Device Used SPC M5 PT-IP Objective Assessments Start: 06/20/18 16:36 Freq: NEEDED Status: Active Protocol: Document 06/20/18 15:35 AB (Rec: 06/20/18 16:56 AB [id number]) Orientation Orientation/Cognition Level of Alertness Alert Orientation Name Age Safety Awareness Decreased Safety Awareness Memory Description Short Term Impaired Gross Range of Motion Lower Extremity ROM Assessment Within Functional Limits Strength Lower Extremity Strength Assessment Within Functional Limits Sensation Assessment Sensation Gross Sensation WNL Muscle Tone Muscle Tone WNL Yes M6 PT-IP Treatment Start: 06/20/18 16:36 Freq: NEEDED Status: Active Protocol: Document 06/20/18 15:35 AB (Rec: 06/20/18 16:56 AB [id number]) Physical Therapy Treatment Education Education Provided Safety M7 PT-IP Assessment and Plan Start: 06/20/18 16:36 Freq: NEEDED Status: Active Protocol: Document 06/20/18 15:35 AB (Rec: 06/20/18 16:56 AB [id number]) PT Summary Assessment and Plan Potential Rehabilitation Potential Good Status of Condition at Evaluation Stable Summary Impairments Balance Gait Activity Tolerance Assessment Summary Pt requiring SBA to CGA with ambulation with (+) LOB without AD. pt will have son to assist her at home. pt may go home when medically stable . Goals Transfer Goal Independent Cane Gait Goal Independent Cane Gait Distance 200 Other Goals STG: increase transfers and ambulation up to 300ft using SPC mod I LTG: increase ambulation without AD ~ 100ft mod I Frequency of Treatment Frequency Of Treatment Once a Day Treatment Plan Physical Therapy Treatment Plan Bed Mobility Training Transfer Training Gait Training Therapeutic Exercise Balance Retraining Discharge Planning Hot or Cold Pack Neuromuscular Re-ed Coordination Retraining Manual Therapy Other Recommendations and Next Treatment ambulation long distance Focus Recommendations To Nursing Amount of Assist Needed 1 Person Assist Discharge Recommendations PT Discharge Recommendations Home with Assistance
[2018-06-20] MEDS: VENLAFAXINE ER 75 MG CAP 150 MG PO (15:59)
[2018-06-20] MEDS: AMLODIPINE 5 MG TABLET PO (15:59)
[2018-06-20] MEDS: GABAPENTIN 100 MG CAPSULE 400 MG PO ×2 (16:00→21:24)
[2018-06-20] MEDS: lamoTRIgine 100 MG TABLET 150 MG PO ×2 (16:20→21:24)
[2018-06-20] MEDS: AZITHROMYCIN 500 MG in DEXTROSE 5% IN WATER 250 ML IV (16:44)
[2018-06-20 16:54] LABS: Lactate (Lactic Acid) 1.7 mmol/L (0.7-2.1)
--- NOTE | 2018-06-20 17:11 | PC.NURSE ---
Addendum entered by Lauren Avalos R.N. 06/20/18 22:58: RSV and Flu A & B both came back negative. UA pending. Pt reports comfortable, no further needs at this time. Original Note: 1630- Pt returned from MRI. Admin medications and started ABO. Pt tearful and anxious r/t son, (in room, and codependent), with Rx ready to car pick up driver at [facility], but unable to physical go downstairs and pick them up himself. Pt reports my son is sick, mentally ill, and is unable to go get his medications himself.. We both have been off our medications for at least a week now. Performed a RSV swab per orders and sent to lab @ 1630. 95%RA, LS wheezy throughout with crackles to bilat lower bases, SOB with exertion. Denies nausea and pain at this time. Uses a cane at home, SBA with FWW to BRP. RFA TKO for ABO's. Call light in reach and bed alarm on.
[2018-06-20 17:42] LABS: Procalcitonin < 0.05 ng/mL (<0.5)
[2018-06-20] MEDS: CEFTRIAXONE 1 GM/50 ML FROZ.PIGGY IV (19:21)
[2018-06-20 20:04] LABS: Influenza A and B by PCR Rapid Negative (Negative)
[2018-06-20 20:07] LABS: Appearance Urine UA CLEAR; Bilirubin Urine UA NEGATIVE (NEGATIVE); Color Urine UA YELLOW; Glucose Urine UA NEGATIVE (Negative); Ketones Urine UA NEGATIVE (NEGATIVE); Leukocyte Esterase Urine UA TRACE (NEGATIVE); Nitrite Urine UA NEGATIVE (Negative); Occult Blood Urine UA 1+ (Negative); Protein Urine UA NEGATIVE (Negative); Specific Gravity Urine UA 1.025 (1.000-1.035); Urobilinogen Urine UA 0.2 E.U./dL (0.2); pH Urine UA 5.5 (4.5-8.0)
[2018-06-20 20:12] LABS: Urine Amphetamines Negative (Negative); Urine Barbiturates Negative (Negative); Urine Benzodiazepines Negative (Negative); Urine Cocaine Negative (Negative); Urine MDMA Negative (Negative); Urine Methadone Negative (Negative); Urine Methamphetamines Negative (Negative); Urine Morphine/Opi cutoff 2000 Negative (Negative); Urine Oxycodone Negative (Negative); Urine Phencyclidine Negative (Negative); Urine Tetrahydrocannabinol Negative (Negative); Urine Tricyclic Antidepressant Negative (Negative)
[2018-06-20 20:17] LABS: Amorphous Sediment Urine 1+; Bacteria Urine Few (2-10); Culture Indicated Urine Specimen Cultured; Mucus Urine 1+ (Negative); RBC Urine 0-1/HPF (0-5/HPF); Squamous Epithelial Cell Urine 1-5 /HPF; WBC Urine 5-10/HPF (0-5/HPF)
[2018-06-20] MEDS: FLUTICASONE 220MCG HFA 120 PUFF INH (20:19)
[2018-06-20] MEDS: ALBUTEROL HFA 60 PUFF/8 GM INH INH ×2 (20:20→23:51)
[2018-06-20 21:20] LABS: Respiratory Syncytial Virus Negative
[2018-06-20] MEDS: ATORVASTATIN 20 MG TABLET PO (21:24)
[2018-06-20] MEDS: ACETAMINOPHEN 325 MG TABLET 650 MG PO (23:54)
[2018-06-21] VITALS (9 sets, daily range): BP systolic 125–165; BP diastolic 74–91; PULSE 60–75; RESP 14–20; TEMP 36.3–36.7; O2SAT 92–96
--- NOTE | 2018-06-21 04:13 | PC.NURSE ---
shift leader: 0000 Pt had a headache and felt congested, medicated with prn Tylenol and PRN inhaler per pt request for wheezing. 0400 Pts son that is rooming in with pt, calling out for his mom. Staff in room and pts son asks if he can go to the bathroom. Educated pt on his role and responsibility as a visitor and that staff could not assist him with toileting. Pt reports mild headache, denies need for further intervention and hopes to get some rest. Pt wants lights on and TV on.
--- NOTE | 2018-06-21 09:14 | CM.DANOTE ---
DCP: Case received, EMR reviewed and met with patient. Introduced self and role. DCP template completed with information currently available. Patient is a 72 year old female who admitted yesterday afternoon to the care of the hospitalist team. PCP: Dr. Blanchard. Payer: confirmed: Medicare/Medicaid. Patient came to hospital via ambulance due to some facial droop. Patient was concerned that she was having a stroke. At this point, diagnosis is TIA, but this is dependent upon MRI. Patient lives in motel/apt with son, Erick. She uses a cane, and he does as well. Spoke to them both while in room, son stated, we help each other out. Patient alert and oriented. Patient also has history of depression, mood disorder. Son was concerned about their cat at home, but stated that they have neighbors that are supportive. P: DCP to continue to follow. Patient should be able to go home when stable, but is questionable if patient may need home health for medication management, as well as physical therapy. Will consult with therapy team at rounds. Erika Roberts RN/[employer]
[2018-06-21] MEDS: GABAPENTIN 100 MG CAPSULE 400 MG PO ×3 (09:19→21:13)
[2018-06-21] MEDS: FLUTICASONE 220MCG HFA 120 PUFF INH ×2 (09:19→17:47)
[2018-06-21] MEDS: ASPIRIN EC 81 MG TABLET PO (09:20)
[2018-06-21] MEDS: VENLAFAXINE ER 75 MG CAP 150 MG PO (09:20)
[2018-06-21] MEDS: AMLODIPINE 5 MG TABLET PO (09:21)
[2018-06-21] MEDS: lamoTRIgine 100 MG TABLET 150 MG PO ×3 (09:21→21:13)
--- NOTE | 2018-06-21 10:28 | OT.IP.EVAL ---
Current Diagnoses Major depressive disorder, single episode, unspecified (06/20/18) Unspecified mood [affective] disorder (06/20/18) Transient cerebral ischemic attack, unspecified (06/20/18) Essential (primary) hypertension (06/20/18) Acute recurrent sinusitis, unspecified (06/20/18) Pneumonia, unspecified organism (06/20/18) Acute bronchitis, unspecified (06/20/18) Unspecified asthma with (acute) exacerbation (06/20/18) Past Medical History (Last Reviewed 06/20/18 @ 18:57 by Heidi Augustin DO) Sinusitis (Acute) Medication refill (Acute) CHF (congestive heart failure) (Acute) UTI (urinary tract infection) (Acute) Asthma exacerbation (Acute) Bronchitis (Inactive) Upper respiratory infection (Inactive) Surgical History (Last Reviewed 06/20/18 @ 18:57 by Heidi Augustin DO) No pertinent past surgical history (Acute) Occupational Therapy Inpatient Evaluation/Re-Eval M1 PT/OT-IP Prior Functional Status Start: 06/20/18 16:36 Freq: NEEDED Status: Active Protocol: Document 06/21/18 10:28 SHAYY (Rec: 06/21/18 15:18 SHAYY [id number]) Medical Review Prior Functional Status Medical History Reviewed Yes Diet/Fluid Consistency Regular Communication able to make needs known Mobility and Gait Pt states she is modified independent with all mobilities and ambulation using SPC indoors and outdoors but occasionally ambulates without AD indoors but tends to furniture cruise. Pt denies any recent falls. Activities of Daily Living and IADL's Pt states she was independent with all self care, but had difficulty accessing very small tub shower combo in motel room where she has been staying for past year with her adult son. Prior Functional Level (Other details) Pt states she does not have a car and cannot afford to hire cab to take them to laundromat or grocery store. She relies on friends for transport. She prepares meals in toaster oven or microwave. Social History Household Members children Living Arrangements Homeless Number of Floors (Floors) One Floor Number of Stairs To Enter/Railing? no stairs to enter motel room Home Environment Standard Height Toilet Tub/Shower Home Equipment Straight Cane Shower Seat with Backrest Hand Held Shower Employment Status Retired M2 OT-IP Current Condition Start: 06/21/18 14:52 Freq: Status: Active Protocol: Document 06/21/18 10:28 PJM (Rec: 06/21/18 15:18 PJ [id number]) Occupational Therapy Current Condition Current Condition Evaluation Date 06/21/18 Treatment Diagnosis TIA (head CT and MRI/MRA neg), CAP, asthma exacerbation Diagnosis Onset Date 06/20/18 M3 OT- IP Subjective and Pain Start: 06/21/18 14:52 Freq: Status: Active Protocol: Document 06/21/18 10:28 PJM (Rec: 06/21/18 15:18 PJ [id number]) OT- Subjective Occupational Therapy Visit Type Type Initial Evaluation Visit Start Time 09:50 Visit Stop Time 10:28 Total Visit Minutes 38 Notes Pt's son observing and adding information this session. Son's comments tangential at times and seem to increase pt's anxiety level. Pt tearful about current living situation . Occupational Therapy Visit Comments Patient Comments It is really hard to keep myself clean when it is so hard to get into the shower. I can't get to the laundromat often enough. Patient/Caregiver Goals to improve living situation OT Pain Assessment Pain When Pain Assessed After Treatment Pain Present Pain Present Denied Pain M4 OT- IP ADL's Start: 06/21/18 14:52 Freq: Status: Active Protocol: Document 06/21/18 10:28 PJM (Rec: 06/21/18 15:18 PJ [id number]) OT [id number] General Evaluation Self-Feeding Ability Independent OT ADL-Grooming General Evaluation Grooming Ability Independent Areas Needing Assistance Glasses Comments OT Grooming Comments standing at sink 3-4 min OT ADL-Oral Care General Eval Oral Care Ability Independent Areas of Assistance Brushing Teeth Devices Oral Care Devices Toothbrush Comments Oral Care Comments standing at sink 3-4 min OT ADL-Dressing General Eval Upper Body Dressing Ability Independent Lower Body Dressing Ability Independent Areas Needing Assistance Underpants/Brief Socks OT ADL-Toileting General Evaluation Toileting Ability Independent OT ADL-Bathing Bathing Type Bathing Type Shower General Evaluation Areas Needing Assistance Retrieving/Setting Up Items Devices Bathing Equipment Long Handled Sponge or Atkinson Shower Chair with Arms Comments OT Bathing Comments Pt showered independently after set up by FISCAL TECHNICIAN yesterday. Provided education to pt and son re: tub seat options and clamp on grab bar on edge of tub and use of [employer] as resource for loaner equipment. M5 OT- IP IADL's Start: 06/21/18 14:52 Freq: Status: Active Protocol: Document 06/21/18 10:28 PJM (Rec: 06/21/18 15:18 PJ [id number]) OT-Instrumental Activities of Daily Living Deficits IADL Deficits Identified No Deficits Home Safety Awareness Awareness of Need for Assistance at Home Good Awareness Ability to Problem Solve Emergency Able to Problem Solve Situations Medication Management Medication Management Comments Per RN, pt has not been taking all her medications recently. CAR WORKER HELPER to address reasons for this which may be funding related. Money Management Money Management No Deficits Identified Meal Preparation Meal Preparation No Deficits Identified Meal Preparation Comments pt uses microwave and toaster oven in motel room Pattern Gater Pattern Gater No Deficits Identified Driving Driving Comments pt does not own car at present M6 OT- IP Functional Cognition Start: 06/21/18 14:52 Freq: Status: Active Protocol: Document 06/21/18 10:28 PJM (Rec: 06/21/18 15:18 PJ [id number]) Cognitive Factors Limiting Selfcare Function Cognitive Ability Level of Alertness Alert Patient Orientation Name Age Birthday Month Date Year Day of Week Place Situation Attention Span Ability Capable of Focused Attention Capable of Sustained Attention Ability to Follow Commands Able to Follow One Step Commands Problem Solving Ability Needs Assist to Identify Solutions Cognitive Comments Cognitive Assessment Comments Pt's functional problem solving appears impaired by anxiety overlay. OT- Vision and Hearing OT- Hearing Assessment OT- Hearing Assessment WFL OT- Vision Assessment Visual Acuity WFL Vision Assessment Comments Pt does not have glasses but states I need some. Pt able to read wall clock without them. Pt reads with page held close to face (~6). M7 OT- IP Mobility and Balance Start: 06/21/18 14:52 Freq: Status: Active Protocol: Document 06/21/18 10:28 PJM (Rec: 06/21/18 15:18 PJ [id number]) OT-Transfer Assessment Sit to and From Stand Sit to and from Stand Independent Transfers Transfer Ability Independent Technique Transfer Destination Chair Toilet Transfer Technique Stand Step Pivot Devices Transfer Assistive Devices Straight Cane OT- Gait Assessment Gait Gait Assistance Required: Independent Distance (Feet) 20 Assistive Devices Assistive Device Straight Cane Comments Gait Ability Comments No loss of balance noted; pt walks slowly with cane. OT- Balance Assessment Sitting Balance and Reactions Static Sitting Balance Ability Good Dynamic Sitting Balance Ability Good Standing Balance and Reactions Static Standing Balance Ability Good Dynamic Standing Balance Ability Good M8 OT- IP Objective Assessments Start: 06/21/18 14:52 Freq: Status: Active Protocol: Document 06/21/18 10:28 PJM (Rec: 06/21/18 15:18 [facility] [id number]) OT Gross Range of Motion Upper Extremity Range of Motion Assessment Within Functional Limits OT Strength Upper Extremity Strength Assessment Within Functional Limits Hand Transplant Registered Nurse Strength Hand Dominance Right Comments Strength Comments No focal strength deficits noted. OT- Coordination Assessment Comments Coordination Comments B hand coordination WFL with no focal deficits noted. OT-Muscle Tone Assessment Muscle Tone WNL Yes OT Sensation Assessment Comments Summary Comments Pt denies sensory deficits in BUE's Edema Edema Absent M9 OT- IP Assessment and Plan Start: 06/21/18 14:52 Freq: Status: Active Protocol: Document 06/21/18 10:28 PJM (Rec: 06/21/18 15:18 [facility] [id number]) OT Summary Assessment and Plan Potential Analytic Complexity at Evaluation Low Summary Progress Towards Goals Safe For Discharge Assessment Summary Low complexity OT assessment completed on this pt admitted under OBS status to rule out TIA with Dx of CAP and asthma exacerbation. No new deficits identified in vision or BUE sensorimotor function. Pt is independent with basic self care tasks in hospital room setting using cane for functional mobility. Pt appears to have strong anxiety overlay that interferes with functional problem solving re: current living situation which is a motel room with her adult son x 1 year. Discussed with CAR WORKER HELPER who will provide information re: community resources. No OT goals identified for this admission. D/C OT. Frequency of Treatment Frequency Of Treatment Discharge Discharge Recommendations OT Discharge Recommendations Home
--- NOTE | 2018-06-21 11:20 | P.PN_ITS ---
Subjective Date Patient Seen: 06/21/18 Interval history: [place] he needs a 72-year-old female who was admitted to the hospital yesterday for possible TIA. Patient has had no new events overnight. She has had no changes in her speech sensation or strength. She continues to have a cough which is productive. She has wheezing, shortness of breath and mild respiratory distress. Exam Vital Signs (past 8 hours): - 06/21/18 08:00 06/21/18 09:28 Temperature 97.9 F Pulse Rate 70 75 Respiratory Rate 18 14 Blood Pressure 149/75 H Pulse Oximetry 95 95 Oxygen Delivery Method Room Air Oxygen Flow Rate 0 Narrative Exam Narrative: Ill appearing female resting comfortably Lungs decreased breath sounds with end-expiratory wheezing and scattered rhonchi Cardiac exam regular rate rhythm normal S1-S2 Abdomen soft nontender nondistended Extremities no edema Neuro exam is nonfocal Objective Labs Result Diagrams: 06/20/18 09:18 06/20/18 09:18 Labs: Laboratory Results - last 24 hr 06/20/18 06/20/18 06/20/18 14:15 14:15 14:15 Hemoglobin A1c 5.3 Lactate Procalcitonin < 0.05 TSH 0.52 Urine Color Urine Appearance Urine pH Ur Specific [place] Urine Protein Urine Glucose (UA) Urine Ketones Urine Occult Blood Urine Nitrate Urine Bilirubin Urine Urobilinogen Ur Leukocyte Esterase Urine RBC Urine WBC Ur Squamous Epith Cells Amorphous Sediment Urine Bacteria Urine Mucus Ur Culture Indicated? Micro UA Comment Urine Opiates Screen Ur Oxycodone Screen Urine Methadone Screen Ur Barbiturates Screen U Tricyclic Antidepress Ur Phencyclidine Scrn Ur Amphetamines Screen U Methamphetamines Scrn Ur MDMA Scrn (Ecstasy) U Benzodiazepines Scrn Urine Cocaine Screen U Marijuana (THC) Screen Influenza A & B (PCR) RSV (PCR) 06/20/18 06/20/18 06/20/18 16:08 19:30 20:00 Hemoglobin A1c Lactate 1.7 Procalcitonin TSH Urine Color Urine Appearance Urine pH Ur Specific [place] Urine Protein Urine Glucose (UA) Urine Ketones Urine Occult Blood Urine Nitrate Urine Bilirubin Urine Urobilinogen Ur Leukocyte Esterase Urine RBC Urine WBC Ur Squamous Epith Cells Amorphous Sediment Urine Bacteria Urine Mucus Ur Culture Indicated? Micro UA Comment Urine Opiates Screen Negative Ur Oxycodone Screen Negative Urine Methadone Screen Negative Ur Barbiturates Screen Negative U Tricyclic Antidepress Negative Ur Phencyclidine Scrn Negative Ur Amphetamines Screen Negative U Methamphetamines Scrn Negative Ur MDMA Scrn (Ecstasy) Negative U Benzodiazepines Scrn Negative Urine Cocaine Screen Negative U Marijuana (THC) Screen Negative Influenza A & B (PCR) Negative RSV (PCR) Negative 06/20/18 20:00 Hemoglobin A1c Lactate Procalcitonin TSH Urine Color Yellow Urine Appearance Clear Urine pH 5.5 Ur Specific [place] 1.025 Urine Protein Negative Urine Glucose (UA) Negative Urine Ketones Negative Urine Occult Blood 1+ H Urine Nitrate Negative Urine Bilirubin Negative Urine Urobilinogen 0.2 Ur Leukocyte Esterase Trace H Urine RBC 0-1/hpf Urine WBC 5-10/hpf H Ur Squamous Epith Cells 1-5 /hpf Amorphous Sediment 1+ Urine Bacteria Few (2-10) H Urine Mucus 1+ H Ur Culture Indicated? Specimen cultured Micro UA Comment Not Reportable Urine Opiates Screen Ur Oxycodone Screen Urine Methadone Screen Ur Barbiturates Screen U Tricyclic Antidepress Ur Phencyclidine Scrn Ur Amphetamines Screen U Methamphetamines Scrn Ur MDMA Scrn (Ecstasy) U Benzodiazepines Scrn Urine Cocaine Screen U Marijuana (THC) Screen Influenza A & B (PCR) RSV (PCR) Assessment & Plan (1) TIA (transient ischemic attack): Problem details: TIA, present on admission. MRI negative for an acute infarct, head CT negative for acute infarct, MRA negative. Will continue with her aspirin daily at this time Await cardiac echo Current visit: Yes Status: Acute (2) Sinusitis: Problem details: Acute sinusitis, present on admission, acute. This may be precipitating her upper respiratory infection. Will continue antibiotic Qualifiers: Chronicity: acute Recurrence: recurrent Sinusitis location: unspecified location Qualified Code(s): J01.91 - Acute recurrent sinusitis, unspecified Current visit: No Status: Acute (3) Hypertension: Problem details: Hypertension, acute, present on admission will continue her usual medications. Patient was not taking her medications as previously prescribed. She resumed her amlodipine yesterday. Will continue to monitor blood pressure closely Current visit: Yes Status: Acute (4) Depression: Problem details: Depr will continue her usual home medication ession, chronic Current visit: Yes Status: Acute (5) Community acquired pneumonia: Problem details: Community-acquired pneumonia, present on admission, acute. Etiology unclear. Will continue IV antibiotics. Await sputum culture results Current visit: Yes Status: Acute (6) Asthma exacerbation: Problem details: Asthma exacerbation, present on admission, acute Will continue antibiotics, continue nebulizers, start low-dose steroid Current visit: No Status: Acute Quality VTE Deep Vein Thrombosis/Pulmonary Embolism Present on Admission: No
--- NOTE | 2018-06-21 11:25 | PT.IPTN ---
Current Diagnoses Major depressive disorder, single episode, unspecified (06/20/18) Unspecified mood [affective] disorder (06/20/18) Transient cerebral ischemic attack, unspecified (06/20/18) Essential (primary) hypertension (06/20/18) Acute recurrent sinusitis, unspecified (06/20/18) Pneumonia, unspecified organism (06/20/18) Acute bronchitis, unspecified (06/20/18) Unspecified asthma with (acute) exacerbation (06/20/18) Physical Therapy Treatment Note M2 PT-IP Current Condition Start: 06/20/18 16:36 Freq: NEEDED Status: Active Protocol: Document 06/20/18 15:35 AB (Rec: 06/20/18 16:56 AB [id number]) Physical Therapy Current Condition Current Condition Evaluation Date 06/20/18 Treatment Diagnosis TIA; difficulty in walking Onset Date 06/20/18 M3 PT-IP Subjective Start: 06/20/18 16:36 Freq: NEEDED Status: Active Protocol: Document 06/21/18 11:25 AB (Rec: 06/21/18 12:15 AB [id number]) Subjective Physical Therapy Visit Type Type Treatment Note Visit Start Time 11:25 Visit Stop Time 11:40 Total Visit Minutes 15 Number of HOE RUNNER Visits 0 Physical Therapy Visit Comments Patient Comments I am feeling better today Therapy Pain Assessment Pain Present Pain Present Denied Pain M4 PT-IP Mobility and Gait Start: 06/20/18 16:36 Freq: NEEDED Status: Active Protocol: Document 06/21/18 11:25 AB (Rec: 06/21/18 12:15 AB [id number]) PT-Bed Mobility Assessment Supine to Sit Supine to Sit Independent Sit to Supine Sit to Supine Independent PT-Transfer Assessment Sit to and From Stand Sit to and from Stand Independent Equipment Transfer Assistive Device Gait Belt Straight Cane Gait Assessment Gait Gait Assistance Required: Independent Distance (Feet) 60 Able to Maintain Weight Bearing Status Yes During Gait Assistive Devices Assistive Device None Gait Belt Straight Cane Orthotic/Prosthetic Devices or Brace: No Factors Limiting Gait Function Factors Limiting Gait Function Respiratory Distress Comments Gait Comments pt ambulated in room using SPC ~ 60 ft mod I. ambulated without AD ~ 30 ft supervision. educated pt on safety and informed that she is cleared to ambulate mod I using SPC. informed nurse regarding clearing pt to be mod I using SPC and d/c from PT. nurse agreed. M5 PT-IP Objective Assessments Start: 06/20/18 16:36 Freq: NEEDED Status: Active Protocol: Document 06/20/18 15:35 AB (Rec: 06/20/18 16:56 AB [id number]) Orientation Orientation/Cognition Level of Alertness Alert Orientation Name Age Safety Awareness Decreased Safety Awareness Memory Description Short Term Impaired Gross Range of Motion Lower Extremity ROM Assessment Within Functional Limits Strength Lower Extremity Strength Assessment Within Functional Limits Sensation Assessment Sensation Gross Sensation WNL Muscle Tone Muscle Tone WNL Yes M6 PT-IP Treatment Start: 06/20/18 16:36 Freq: NEEDED Status: Active Protocol: Document 06/21/18 11:25 AB (Rec: 06/21/18 12:15 AB [id number]) Physical Therapy Treatment Education Education Provided Safety M7 PT-IP Assessment and Plan Start: 06/20/18 16:36 Freq: NEEDED Status: Active Protocol: Document 06/21/18 11:25 AB (Rec: 06/21/18 12:15 AB [id number]) PT Summary Assessment and Plan Potential Rehabilitation Potential Good Summary Impairments Pain ROM Strength Balance Coordination Sensation Tone Cognition Bed Mobility Transfers Gait Activity Tolerance Progress Towards Goals Progressing Toward Goals Assessment Summary pt doing well with mobility and is modified independent with bed mobility, transfers and ambulation using SPC. recommending use of SPC at this time for safety. Pt does not need any further PT intervention at this time. d/c PT. Goals Other Goals No further PT intervention at this time Frequency of Treatment Frequency Of Treatment Discharge Recommendations To Nursing Amount of Assist Needed Independent Discharge Recommendations PT Discharge Recommendations Home
[2018-06-21] MEDS: predniSONE 20 MG TABLET 40 MG PO (11:31)
--- NOTE | 2018-06-21 12:17 | PC.NURSE ---
Pts son in room, apparently last night patient gave her dinner tray to him. Explained to pt that she nees to ear her meals on her own. Pts son in not patient here, helena is a visitor. We have gently explained to him that he needs to be independent with his own care while being at the hospital. Mom and son are close and seem to bring more anxiety to each other than anything. She is eating her lunch now and seems more calm. BS with wheezes through out and pt is RA and sats are between 92-94. Pt is a bit sob with exertion but recovers quickly. She has been discharged from PT and is independent in her room. [place] [employer] department just called, regarding pts cat. [place] [facility] [place] [facility] and apparently sons dad is going to go and check on cat later.
[2018-06-21] MEDS: AZITHROMYCIN 500 MG in DEXTROSE 5% IN WATER 250 ML IV (16:55)
[2018-06-21] MEDS: CEFTRIAXONE 1 GM/50 ML FROZ.PIGGY IV (19:15)
[2018-06-21] MEDS: ATORVASTATIN 20 MG TABLET PO (21:13)
[2018-06-22 03:24] VITALS: BP 159/87; PULSE 65; RESP 18; TEMP 36.5; O2SAT 95
[2018-06-22] MEDS: FLUTICASONE 220MCG HFA 120 PUFF INH (06:39)
[2018-06-22 06:40] VITALS: PULSE 57; RESP 16; O2SAT 96
--- NOTE | 2018-06-22 06:59 | PC.NURSE ---
A&OX3. 94%RA. LS: expiratory wheezes, SOB on exertion. Denied n/v. denied pain. Son at bedside. This morning, pt reports some slight decrease in her hearing. pt reports she has baseline tinnitus. no pain. call light in reach.
[2018-06-22 08:00] VITALS: BP 178/95; PULSE 61; RESP 20; TEMP 36.4; O2SAT 95
--- NOTE | 2018-06-22 08:06 | P.DS_ITS ---
History of Present Illness Chief complaint: CVA Narrative: The patient is a 72-year-old female with history of hypertension, asthma, TIA, depression who presents with concerns regarding a TIA. The patient and her son were in an argument. During the argument the patient was unable to speak. She states she had slurred speech and difficulty with word finding. She reports some facial droop. She reports a headache that has been present for about 1 week. She was somewhat confused and unable to articulate what she was trying to say. The patient had no associated weakness of her arms or legs, no numbness or tingling, no loss of consciousness, there was no tonic- clonic activity, no loss of continence. The patient presented to the emergency department for evaluation. At that point her speech was back to normal. She underwent a head CT which was negative. Patient is admitted to the hospital at this time for evaluation of a possible TIA. Patient has had a cough for the past month. She is a smoker. She has had no fever. Her cough has been productive with yellow phlegm. She also reports some shortness of breath and wheezing. She has no chest pain. She has had some nausea. No vomiting. She denies any hematemesis melena, bright red blood per rectum. Patient has no dysuria hematuria or pyuria. Patient reports she has gained about 30 lb over the past several months. She has had no fever or chills. Patient denies any joint pains or rashes. Discharge Providers Date of admission: 06/20/18 12:03 Primary care physician: Aaron Blanchard MD Consults: 06/20/18 13:48 Consult to Discharge Planning Routine Comment: Consult to Occupational Therapy Evaluate & Treat Comment: Physician Instructions: Evaluate and treat Consult to Physical Therapy Evaluate & Treat Comment: Physician Instructions: Evaluate and Treat Consult to Speech Therapy Evaluate & Treat Comment: Physician Instructions: Evaluate and treat Discharge provider: Anu Bell MD Discharge Date: 06/22/18 Summary Discharge Diagnosis: Left lower lobe pneumonia, probably bacterial Maxillary sinusitis Transient ischemic attack, resolved COPD/asthma acute exacerbation Hypertension Depression Hospital Course: Patient is a 72-year-old female who was admitted to the hospital for probable TIA. She was in an argument with her son and lost her ability to speak. In addition she had difficulty with word finding and slurred speech. She had some facial droop. All her symptoms resolved. Patient was admitted to the hospital for TIA. Her head CT was negative. MRI of the brain was negative for an acute stroke. An MR angio of the brain showed no acute intracranial abnormalities. The patient was unable to get an MR angio of the neck. Cardiac echo showed no embolic focus. Her LV function was normal. Patient developed a cough. She had significant wheezing. X-ray confirmed a left lower lobe infiltrate. Patient had a normal white count normal fever. Her CT of the head did show maxillary sinusitis. Patient was treated with antibiotics nebulizers and steroids for her upper respiratory infection. Patient made slow but steady progress. She was deemed appropriate for discharge home and arrangements were made for discharge. Status at Discharge Functional status at discharge: independent ambulation Overall status at discharge: patient is back to baseline Time Spent with Patient Less than 30 minutes Exam Vital Signs (past 8 hours): - 06/22/18 03:24 06/22/18 06:40 Temperature 97.7 F Pulse Rate 65 57 L Respiratory Rate 18 16 Blood Pressure 159/87 H Pulse Oximetry 95 96 Oxygen Delivery Method Room Air Oxygen Flow Rate 0 Narrative Exam Narrative: Pleasant female in no acute distress . Lungs: Decreased breath sounds with end-expiratory wheezing bilaterally Cardiac exam: Regular rate rhythm normal S1-S2 Abdomen: Soft nontender nondistended Extremities: No edema Objective Labs Result Diagrams: 06/20/18 09:18 06/20/18 09:18 Discharge Plan Discharge Plan Patient Disposition: Home Discharge Med Rec/Prescriptions Prescriptions: New prednisone 20 mg Tablet 40 mg PO DAILY 5 Days RF: 0 aspirin 81 mg Tablet,Delayed Release (Dr/Ec) 81 mg PO DAILY 30 Days RF: 0 fluticasone [Flovent HFA] 220 mcg/actuation Hfa Aerosol Inhaler 2 puff INH RTBID 60 Days RF: 0 levofloxacin 750 mg tablet 750 mg PO DAILY Qty: 7 RF: 0 prednisone 20 mg tablet 20 mg PO BID Qty: 10 RF: 0 aspirin 81 mg tablet,delayed release (DR/EC) 81 mg PO DAILY Qty: 30 RF: 0 budesonide 180 mcg/actuation aerosol powdr breath activated 2 inhalation INHALATION BID 60 Days Qty: 2 RF: 0 Continue lamotrigine [Lamictal] 150 mg tablet 150 mg PO TID Qty: 90 RF: 0 gabapentin 400 mg capsule 400 mg PO TID Qty: 90 RF: 0 amlodipine [Norvasc] 5 MG tablet 5 mg PO DAILY 30 Days RF: 0 clonazepam 2 mg Tablet 2 mg PO DAILY PRN (Reason: Anxiety) 30 Days RF: 0 venlafaxine 150 mg capsule,extended release 24hr 150 mg PO BID Qty: 60 RF: 0 Changed albuterol sulfate [Ventolin HFA] 90 MCG/PUFF HFA aerosol inhaler 2 puff INHALATION Q4HP PRN (Reason: bronchospasm) 30 Days Qty: 1 RF: 0 Follow up/Referrals: Mindi Gonsalez PA-C [[employer]] - (follow up with ari saucedo @ [facility] [address]) on 06/29 check in at 11:00 for paperwork for a 11:30 appointment) Provider Discharge Instructions Diet: Low-sodium Activity: as tolerated Skin/Wound/Dressing Care Report to your healthcare provider any signs of infection, such as:: chills, fever Visit Report/Discharge Packet Instructions: DI for Heart Failure, DI for Sinusitis, DI for Acute Bronchitis, Low-Sodium Diet Visit Report Forms: Stroke Signs & Symptoms Discharge Data Primary Care Provider: Aaron Blanchard Attending Provider: Anu Bell Admit Date/Time: 06/20/18 12:03 Quality VTE Deep Vein Thrombosis/Pulmonary Embolism Present on Admission: No
[2018-06-22] MEDS: lamoTRIgine 100 MG TABLET 150 MG PO (08:46)
[2018-06-22] MEDS: VENLAFAXINE ER 75 MG CAP 150 MG PO (08:46)
[2018-06-22] MEDS: predniSONE 20 MG TABLET 40 MG PO (08:46)
[2018-06-22] MEDS: AMLODIPINE 5 MG TABLET PO (08:47)
[2018-06-22] MEDS: GABAPENTIN 100 MG CAPSULE 400 MG PO (08:47)
[2018-06-22] MEDS: ASPIRIN EC 81 MG TABLET PO (08:47)
[2018-06-22 09:54] VITALS: PULSE 62; RESP 14; O2SAT 98
[2018-06-22] MEDS: ALBUTEROL HFA 60 PUFF/8 GM INH INH (09:54)
--- NOTE | 2018-06-22 12:18 | PC.NURSE ---
discharge pt denied pain this shift. Working with RELAY TESTER HELPER to find resources available to pt at d/c. [facility] found pt primary care apt for 06/29 at 1100 with [facility] med. Pt aware of apt and on d/c paperwork. pt states she took all belongings with her at d/c. PIV and tele removed prior to d/c. d/c instructions provided to pt and her son. pt and son both left in w/c with RN and PHYSICAL THERAPY SUPERVISOR escorts to [email or web address] to take them back to [facility].
--- NOTE | 2018-06-22 13:11 | CM.SWNOTE ---
Social Work Consult: Reviewed chart. According to ; SW requested for consult to review housing options for pt and her disabled son. Pt medically stable for DC today. Met w/pt at bedside, son lying down on window bench. Explained SW role. According to our conversation: Pt/son were well connected in the [place] area for housing, MH support and other resources but approx. one year ago they were evicted from their apt and could not find affordable housing there after. They landed in Motels in the [place] area, currently they are living at [facility] [address]. Both pt and her son struggle w/both medical and MH complications. Pt has been connected w/[facility] in the past and felt it was helpful. This EMBOSSING CALENDER OPERATOR suggested a call to [facility] to inquire about a next day appt on behalf of pt? Pt feels she will not be able to make it to [facility] at this time d/t her emotional and physical limitations and those of her son's. This EMBOSSING CALENDER OPERATOR suggested [facility]; pt appreciative for the information. This EMBOSSING CALENDER OPERATOR gave [facility] MH Brochure and strongly encouraged pt/son to call once home to [facility] today. Pt denies suicidal or homicidal ideation. Re: Housing resources; pt/son are connected w/[facility] in [facility]. They are not prepared to return to [place] and don't feel they can afford housing. They are also unsure of being able to afford an apt in [facility], one located on the first floor. They make a combination of $1,500 in monthly income. Strongly encouraged pt to get on the [facility] housing wait list, it is lengthy but her name should be on that. This EMBOSSING CALENDER OPERATOR unsure pt would do this as it would mean pt might be required to be from her son and she will not do that. Pt denies addtl. resources P: Home w/close outpt f/u scheduled through [facility] and [facility] for MH stabilization and hopefully, ongoing connection w/[facility] MH services. Taxi arranged through [employer] w/[employer] Voucher. Farrah Gallo made aware. Brittni Roper EMBOSSING CALENDER OPERATOR
== END 2018-06-22 12:15 | disposition home or self-care (01) | DRG 194 ==
LOC: ED 11:56 → AC 12:27
PROVIDERS: Admitting Provider Internal Medicine; Emergency Provider Emergency Medicine; PCP Family Medicine; Visit Provider Internal Medicine
DX: J15.9 Unspecified bacterial pneumonia (principal); G45.9 Transient cerebral ischemic attack, unspecified; J45.901 Unspecified asthma with (acute) exacerbation; J01.00 Acute maxillary sinusitis, unspecified; I10 Essential (primary) hypertension; F39 Unspecified mood [affective] disorder; F17.210 Nicotine dependence, cigarettes, uncomplicated; F32.9 Major depressive disorder, single episode, unspecified
CPT/HCPCS: 36415; 70450; 70544; 70551; 71045; 80048; 80305; 81001; 81003; 82962; 83036; 83605; 84145; 84443; 84484; 85025; 85610; 85730; 87086; 87400; 87634; 93005; 93306; 94640; 94762; 96360; 96361; 97116; 97161; 97165; 97535; 99285; 99406

== ENCOUNTER → 2018-07-04 10:43 | Outpatient (CLI) | payer MEDICARE, MEDICAID, SELFPAY ==
[2018-06-20 13:52] VITALS: BMI 36.6
--- NOTE | 2018-07-04 | DI.US.S_ITS ---
PROCEDURE: US CAROTID DOPPLER BI INDICATIONS: TIA TECHNIQUE: Color and pulse Doppler interrogation was performed of both carotid systems, with image documentation and velocity measurements. COMPARISON: None. FINDINGS: Stenosis calculations are based on SRU (Society of Radiologists in Ultrasound) criteria. Right side: Brachial blood pressure: 145/78 mm Hg. Common carotid artery peak systolic velocity: 105 cm/sec. Internal carotid artery peak systolic velocity: 62 cm/sec. Internal carotid artery end diastolic velocity: 21 cm/sec. External carotid artery peak systolic velocity: 85 cm/sec. ICA/CCA peak systolic ratio: 0.6. [place] scale imaging description: Minimal scattered plaque. Percent internal carotid artery stenosis: Less than 50%. Vertebral artery: Flow direction is antegrade. Left side: Brachial blood pressure: 147/85 mm Hg. Common carotid artery peak systolic velocity: 105 cm/sec. Internal carotid artery peak systolic velocity: 71 cm/sec. Internal carotid artery end diastolic velocity: 26 cm/sec. External carotid artery peak systolic velocity: 81 cm/sec. ICA/CCA peak systolic ratio: 0.7. [place] scale imaging description: Mild scattered plaque. Percent internal carotid artery stenosis: Less than 50%. Vertebral artery: Flow direction is antegrade. IMPRESSION: Less than 50% bilateral internal carotid artery stenosis. Dictated by: Rod Jensen [facility] Interpreted: Joel Gibson MD on 07/04/2018 at 15:01 Approved by: Jole Gibson M.D. on 07/04/2018 at 17:09
== END ==
PROVIDERS: PCP Internal Medicine; Visit Provider Internal Medicine
DX: G45.9 Transient cerebral ischemic attack, unspecified (principal); I65.23 Occlusion and stenosis of bilateral carotid arteries
CPT/HCPCS: 93880